=== PATIENT | female | born 1990 | race Caucasian/White ===

== ENCOUNTER 2018-01-22 21:40 | Emergency (ER) | payer OTHER ==
[~2018-01-22] VITALS: Ht 188 cm; Wt 144.7 kg
[2018-01-22] MEDS ORDERED: ONDANSETRON HCL 4 MG ORAL DISINTEGRATING TAB PO ONE (22:00)
[2018-01-22] MEDS ORDERED: KETOROLAC TROMETHAMINE 60 MG/2 ML VIAL IM ONE (22:00)
[2018-01-22 23:53] VITALS: BP 145/75
== END 2018-01-22 23:55 | disposition home or self-care (01) ==
LOC: FSED 21:40
DX: S00.83XA Contusion of other part of head, initial encounter (principal); R42 Dizziness and giddiness; W22.09XA Striking against other stationary object, initial encounter; Y99.0 Civilian activity done for income or pay
CPT/HCPCS: 70450; 81025; 96372; 99283; J1885

== ENCOUNTER 2020-07-24 00:16 | Emergency (ER) | payer BC ==
[~2020-07-24] VITALS: Ht 188 cm; Wt 145.1 kg
--- NOTE | 2020-07-24 00:44 | Emergency Department Note ---
History of Present Illnes History of Present Illness Chief Complaint: Rash and itching History of Present Illness This is a 29 year old female, with no significant past medical h istory, who presents with a 4 day history of intermittent facial swelling, initially involving her eyes and then involved her lips, and generalized pruritus. Pt states that she did eat some shrimp, on the day of symptoms onset. However, she states that she has had seafood many times, including last week, without any symptoms. Pt has sporadically taken benadryl and xyzal. Her symptoms were a bit better yesterday, but she developed severe, intense itching this evening, that has been unrelenting, without any facial swelling or swelling of mucous membranes. She took a Xyzal this evening, without relief of symptoms. She denies any lip, tongue, eyelipd, or throat swelling. She has also not had any chest tightness, SOB, or cough. She has not had a rash, that she has noticed. She denies previous history of similar symptoms, and denies any history of known allergies. Historian: Patient Arrival Mode: [employer] Required: No Onset (how long ago): day(s) (4) Location: generalized Quality: itching Radiation: Reports non-radiation Severity: moderate Onset quality: sudden Duration (how long): day(s) (4) Timing of current episode: constant Progression: worsening Chronicity: new Context: Denies recent illness, Denies trauma/injury, Denies new medications Relieving factors: medication (Benadryl offered temporary relief) Exacerbating factors: none Associated symptoms: Reports denies other symptoms; Denies cough, Denies fever/chills, Denies nausea/vomiting, Denies shortness of breath Treatments prior to arrival: none Risk factors: recent ingestion of shellfish Past Medical/Family History Physician Review I have reviewed the patient's past medical and family history. Any updates have been documented here. Past Medical History Recent Fever: No Clinical Suspicion of Infectio: No New/Unexplained Change in Ment: No Past Medical History: None Past Surgical History: T&A, Bariatric Surgery (Gastric Bypass) Other Surgery: Tummy Tuck Left knee Left foot Social History Smoking Cessation: Never Smoker Alcohol Use: Occasional Any Illegal Drug Use: No TB Exposure/Symptoms: No Physically hurt or threatened: No Family History Family history of heart diseas: No Other Last Tetanus: 2 year ago Any Pre-Existing Lines (PICC,: No Is patient up to date on immun: No Review of Systems Review of Systems Constitutional: Denies chills, Denies fever, Denies weakness EENTM: Reports no symptoms; Denies throat swelling, Denies mouth swelling Cardiovascular: Denies chest pain, Denies palpitations, Denies syncope Respiratory: Denies cough, Denies dyspnea Gastrointestinal: Denies nausea, Denies vomiting Genitourinary: Reports no symptoms Musculoskeletal: Denies joint pain, Denies joint swelling, Denies neck pain Integumentary: Denies change in color, Denies rash Neurological: Denies headache, Denies numbness, Denies tingling Psychological: Denies anxiety Endocrine: Denies no symptoms Review of other systems: All other systems negative Physical Exam Related Data Allergies: Coded Allergies: No Known Allergies (Unverified , 01/22/18) Vital signs reviewed: Yes Physical Exam CONSTITUTIONAL Constitutional: Present well-developed, Present well-nourished, Present obese HENT HENT: Present normocephalic, Present atraumatic, Present oropharynx clear/moist, Present nose normal HENT L/R: Present left ext ear normal, Present right ext ear normal EYES Eyes: Reports PERRL, Reports conjunctivae normal, Reports EOM normal NECK Neck: Present ROM normal, Present supple; Absent cervical adenopathy PULMONARY Pulmonary: Present effort normal, Present breath sounds normal; Absent chest tenderness CARDIOVASCULAR Cardiovascular: Present regular rhythm, Present heart sounds normal, Present capillary refill normal, Present normal rate; Absent murmur GASTROINTESTINAL Abdominal: Present soft, Present nontender, Present bowel sounds normal; Absent distension, Absent tender GENITOURINARY Genitourinary: Present exam deferred SKIN Skin: Present warm, Present dry, Present other (excoriatoins present on arms, n fabrizio and torso;); Absent erythema, Absent rash MUSCULOSKELETAL Musculoskeletal: Present ROM normal NEUROLOGICAL Neurological: Present alert, Present oriented x 3, Present no gross motor or sensory deficits PSYCHOLOGICAL Psychological: Present mood/affect normal, Present judgement normal Results Laboratory Lab results reviewed: Yes Laboratory comments UPT - negative; Assessment & Plan Medical Decision Making MDM - In addition to the prescription medications, recommend that you also take: - Cetirizine/Zyrtec 10 mg daily or Xyzal 5 mg po daily x 10 days, or until you follow-up with an [employer] Apprentice. - Benadryl 25 mg every 4 hours, as needed, for itching. - Avoid hot showers/baths which can make itching worse. - Follow-up with your Primary Care Physician, regarding this ER visit, and for referral to an [employer] App[employer]ice, for formal allergy testing, to try and identify what you might be allergic to. - AVOID SHELLFISH, until you have undergone allergy testing. - Return to the ED, if you develop tongue swelling, lip swelling, chest tightness or difficulty breathing. If you develop ANY of these symptoms, use the EPI-PEN, take 2 Benadryl and call 911. Assessment & Plan Final Impression: (1) Allergic reaction (2) Pruritus Depart Disposition: HOME, SELF-longterm Meds Active Scripts Epinephrine (EPINEPHRINE) 0.3 Mg/0.3 Ml Pen.injctr, 0.3 MG IM ONCE PRN for allergic reaction, #2 PACKET 0 Refills Prov:RUPALI ALEXANDRE MD 07/24/20 Prednisone (PREDNISONE) 20 Mg Tab, 20 MG PO BID for 7 Days, #10 TAB 0 Refills 1 po bid x 3 days, then 1 po daily x 4 days, then stop. Prov:RUPALI ALEXANDRE MD 07/24/20 Famotidine (FAMOTIDINE) 20 Mg Tab, 20 MG PO BID for 10 Days, #20 TAB 0 Refills Prov:RUPALI ALEXANDRE MD 07/24/20 RUPALI ALEXANDRE MD Jul 24, 2020 00:44
[2020-07-24] MEDS ORDERED: FAMOTIDINE 20 MG/2 ML VIAL IV STA (01:26)
[2020-07-24] MEDS ORDERED: METHYLPREDNISOLONE SOD SUCC 125 MG/2ML VIAL IV ONE (01:30)
[2020-07-24] MEDS ORDERED: DIPHENHYDRAMINE HCL INJ 50 MG/ML VIAL IV ONE (01:30)
[2020-07-24] MEDS ORDERED: FAMOTIDINE20 MG PO (01:37)
--- OUTSIDE RECORDS SUMMARY | 2020-07-24 01:38 | XMS REPORT | Continuity of Care Document ---
Author Author VidiowikiCHRISTA [facility] [employer] Address Unknown Phone Unavailable Care Team Providers Care Desk Interviewer Name Role Phone [facility] Information Exchange Unavailable Un available Problems Problem Status Onset Date Classification Date Reported Comments Source LT KNEE Active 12/19/2019 [facility] [place] UNK Active 0 12/10/2019 [facility] KNEE ARTHROSCOPY/MEDIAL MENICUS REPAIR/ Active 12/10/2019 [facility] DX: M25.469=EFFUSION, UNSPECIFIED KNEE / Active 11/14/2019 [facility] M25.469 - EFFUSION, UNSPECIFIED KNEE Active 11/06/2019 [facility] 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 [facility] R10.2 - PELVIC AND PERINEAL PAIN Active [facility]08[facility] [place] Unspecified abdominal pain 03/03/2019 03/05/2019 [facility] Unspecified ovarian cyst, right side 03/03/2019 03/05/2019 [facility] ABD / BACK PAIN Active 03/02/2019 [facility] Z15.09, Z15.01 Active 02/07/2019 [facility] MRI BREAST TOM W-WO CINTRAST A ctive 12/27/2018 [facility] ABD PAIN Active 06/06/2016 [facility] LEG PAIN Active 01/11/2013 [facility] SYNCOPE,ANEMIA Active 11/23/2012 [facility] SYNCOPE Active 11/23/2012 [facility] MIGRAINE Active 01/21/2012 [facility] Gastric bypass Resolved Problem 01/13/2013 1obesity [facility] Anemia (disorder) Resolved Problem 05/01/2020 [facility] Pan, LACY [place] Bypass of stomach (procedure) Resolved Problem [facility] Pan LACY [place] Medications Medication Details Route Status Patient Instructions Ordering Provider Order Date Source Roxicodone Notes: (Same as: Ro xicodone) Inactive 01/23/2020 Skip Tylenol Notes: Do not exceed 4 gm/day. (Same as: Tylenol) Inactive 01/23/2020 [facility] ketOROLAC (ANES) IV, ONCE Inactive 01/23/2020 [facility] metoclopramide (ANES) Route: I V, Drug form: INJ, ONCE, Stop date: 01/23/20 13:23:00 CDT Inactive 01/23/2020 [facility] Acetaminophen Notes: Max aceta minophen 4000 mg/day (4 gm/day). (Same as: Tylenol Extra Strength) Inactive 01/23/2020 [facility] Oxycodone Hydrochloride 5 MG Oral Tablet Notes: (Same as: Roxicodone) Inactive 01/23/2020 [facility] Fentanyl Notes: (Same as: Subl imaze) Preservative free. Inactive 01/23/2020 [facility] Flumazenil Notes: (Same as: Ro mazicon) Inactive 01/23/2020 [facility] Naloxone Notes: Same as Narcan Inactive 01/23/2020 [facility] Ondansetron Notes: (Same as: Nadege melgar) MEDICATION WASTE Product Size: 4 mg Product Wasted: ___ mg Inactive 01/23/2020 [facility] Zofran Notes: (Same as: Zofran ) MEDICATION WASTE Product Size: 4 mg Product Wasted: ___ mg Inactive 01/23/2020 [facility] Acetaminophen 325 MG / Oxycodone Hydroch loride 5 MG Oral Tablet [Percocet 5/325] 2 tab, Route: PO, Drug Form: TAB, Dosing Weight 145.455, kg, Q4H, PRN Pain, Start date: 01/23/20 13:05:00 CDT, Duration: 30 day, Stop date: 02/22/20 13:04:00 CDT Inactive 01/23/2020 [facility] acetaminophen (ANES) Route: IV , Drug form: INJ, ONCE, Stop date: 01/23/20 12:42:00 CDT Inactive 01/23/2020 [facility] ceFAZolin (ANES) Route: IV, Dr ug form: INJ, ONCE, Stop date: 01/23/20 12:37:00 CDT Inactive 01/23/2020 [facility] ondansetron (ANES) Route: IV, Drug form: INJ, ONCE, Stop date: 01/23/20 12:37:00 CDT Inactive 01/23/2020 [facility] dexamethasone (ANES) Route: IV , Drug form: INJ, ONCE, Stop date: 01/23/20 12:37:00 CDT Inactive 01/23/2020 [facility] methylPREDNISolone (ANES) Rout e: IV, Drug form: INJ, ONCE, Stop date: 01/23/20 12:37:00 CDT Inactive 01/23/2020 [facility] lidocaine (ANES) Route: IV, Dr ug form: INJ, ONCE, Stop date: 01/23/20 12:37:00 CDT Inactive 01/23/2020 [facility] fentaNYL (ANES) Route: IV, Julio g form: INJ, ONCE, Stop date: 01/23/20 12:37:00 CDT Inactive 01/23/2020 [facility] propofol (ANES) Route: IV, Julio g form: INJ, ONCE, Stop date: 01/23/20 12:37:00 CDT Inactive 01/23/2020 [facility] rocuronium (ANES) Route: IV, D rug form: INJ, ONCE, Stop date: 01/23/20 12:37:00 CDT Inactive 01/23/2020 [facility] succinylcholine (ANES) Route: IV, Drug form: INJ, ONCE, Stop date: 01/23/20 12:37:00 CDT Inactive 01/23/2020 [facility] midazolam (ANES) Route: IV, Dr ug form: SOLN, ONCE, Stop date: 01/23/20 12:32:00 CDT Inactive 01/23/2020 [facility] Lactated Ringers Injection IV (ANES) 1000 mL Route: IV, Total Volume: 1,000, Start date: 01/23/20 11:32:00 CDT, Stop date: 01/23/20 12:32:00 CDT Inactive 01/23/2020 [facility] Tylenol 1,000 mg, PO, PRN, 0 R efill(s) Inactive 01/23/2020 [facility] Benadryl 25 mg, PO, PRN, 0 Ref ill(s) Active 01/23/2020 [facility] Calcium Chloride 0.0014 MEQ/ML / Potassi um Chloride 0.004 MEQ/ML / Sodium Chloride 0.103 MEQ/ML / Sodium Lactate 0.028 MEQ/ML Injectable Solution 1,000 mL, Rate: 75 ml/hr, Infuse over: 1 3.3 hr, Route: IV, Dosing Weight 145.455 kg, Total Volume: 1,000, Start date: 01/23/20 9:00:00 CDT, Duration: 1 day, Stop date: 01/24/20 8:59:00 CDT, 2.78, m2, 0 Inactive 01/23/2020 [facility] Acetaminophen 325 MG / Hydrocodone Dave trate 7.5 MG Oral Tablet [[place] 7.5/325] Notes: Same as [place] 325-7.5mg Do not exceed 4gm/day of acetaminophen. Inactive 03/03/2019 [facility] Ondansetron 4 MG Disintegrating Tablet [Zofran] 4 mg = 1 tab, PO, Q8H, PRN Nausea and Vomiting, Dissolve tab under tongue, # 15 tab, 0 Refill(s) Active 03/03/2019 [facility] tramadol hydrochloride 50 MG Oral Tablet 50 mg = 1 tab, PO, Q6H, X 5 day, # 20 tab, 0 Refill(s) Active 03/03/2019 [facility] Morphine 4 mg, Route: IVP, ONC E, Dosing Weight 152.273, kg, Priority: STAT, Start date: 03/03/19 0:01:00 CDT, Stop date: 03/03/19 0:01:00 CDT Inactive 03/03/2019 [facility] Ketorolac 30 mg, Route: IVP, D rug form: INJ, ONCE, Dosing Weight 152.273, kg, Priority: STAT, Start date: 03/02/19 21:57:00 CDT, Stop date: 03/02/19 21:57:00 CDT Inactive 03/03/2019 [facility] Zofran 4 mg, Route: IVP, Drug form: INJ, ONCE, Dosing Weight 152.273, kg, Priority: STAT, Start date: 03/02/19 20:26:00 CDT, Stop date: 03/02/19 20:26:00 CDT Inactive 03/03/2019 [facility] Morphine 4 mg, Route: IVP, ONC E, Dosing Weight 152.273, kg, Priority: STAT, Start date: 03/02/19 20:25:00 CDT, Stop date: 03/02/19 20:25:00 CDT Inactive 03/03/2019 [facility] Sodium Chloride 0.9% (Bolus) IV 1,000 mL, Infuse Over: 1 hr, Route: IV, ONCE, Priority: STAT, Dosing Weight 152.273 kg, Start date: 03/02/19 20:25:00 CDT, Stop date: 03/02/19 20:25:00 CDT Inactive 03/03/2019 [facility] Zofran Notes: (Same as: Smithafrbetsy ) MEDICATION WASTE Product Size: 4 mg Product Wasted: ___ mg Inactive 03/03/2019 [facility] Slow Release Iron 160 mg oral tablet, extended release 160 mg = 1 tab, PO, BID, # 30 tab, 0 Refill(s) Active 06/11/2016 [facility] Metronidazole 500 MG Oral Tablet 500 mg = 1 tab, PO, ABXQ8H, X 5 day, # 15 tab, 0 Refill(s) Active 06/11/2016 [facility] Cipro Notes: May interfere w/e nteral feedings - Take 1 hr before or 2 hrs after antacids, dairy pdt & minerals. On empty stomach. Inactive 06/11/2016 [facility] Metronidazole Notes: (Same as: Flagyl) Take with food/ avoid alcohol No Longer Active 06/11/2016 [facility] Venofer Notes: Each 5ml contai ns 100mg elemental iron. Mix with NS (Same as:Venofer) EXPIRES AFTER 7 DAYS AT ROOM TEMP Administer IV only. MEDICATION WASTE Product Size: 100 mg Product Wasted: ___ mg No Longer Active 06/09/2016 [facility] ferrous sulfate Notes: Give wi th food. "Do Not Crush" No Longer Active 06/09/2016 [facility] Carafate Notes: Enteral feeds may interfere with the absorption of this medication. Shake well. Take 1 hr before or 2 hrs after antacids, dairy pdt, minerals & meals. (Same As: Carafate) No Longer Active 06/08/2016 [facility] Protonix Notes: Tablet should not be chewed or crushed. (Same as: Protonix) No Longer Active 06/08/2016 [facility] ciprofloxacin 500 mg oral tablet 500 mg = 1 tab, PO, Q12H, X 3 day, # 6 tab, 0 Refill(s) No Longer Active 06/08/2016 [facility] Sucralfate 1000 MG Oral Tablet [Carafate] 1 gm = 1 tab, PO, QID-Before Meals, # 120 tab, 0 Refill(s) Active 06/08/2016 [facility] pantoprazole 40 MG Enteric Coated Tablet [Protonix] 40 mg = 1 tab, PO, Daily, # 30 tab, 0 Refill(s) Active 06/08/2016 [facility] Slow Release Iron 160 mg oral tablet, extended release 160 mg = 1 tab, PO, BID, # 30 tab, 0 Refill(s) No Longer Active 06/08/2016 [facility] Flagyl Notes: (Same as: James ) Avoid alcohol. No Longer Active 06/08/2016 [facility] 200 ML Ciprofloxacin 2 MG/ML Injection Notes: Do not refrigerate No Longer Active 06/08/2016 [facility] GI cocktail Notes: [place] = antacid with simethicone 22.5 mL - lidocaine viscous 7.5 mL Inactive 06/08/2016 [facility] Flagyl Notes: (Same as: James ) Avoid alcohol. Inactive 06/08/2016 [facility] 200 ML Ciprofloxacin 2 MG/ML Injection Notes: Do not refrigerate Inactive 06/08/2016 [facility] tramadol hydrochloride 50 MG Oral Tablet Notes: Not to exceed 400mg/day. (Same As: Ultram) No Longer Active 06/08/2016 [facility] Acetaminophen Notes: Do not ex ceed 4 gm/day. (Same as: Tylenol) No Longer Active 06/08/2016 [facility] Zofran Notes: (Same as: Zofran ) MEDICATION WASTE Product Size: 4 mg Product Wasted: ___ mg No Longer Active 06/08/2016 [facility] Docusate Sodium 100 MG Oral Capsule Notes: (Same as: Colace) (Do Not Crush) No Longer Active 06/08/2016 [facility] sodium chloride 0.9% INJ 250 mL 250 mL, Rate: Label Cutter for use with blood product administration., Dosing Weight 112.273, kg, Route: IV, Total Volume: 250, Priority: Routine, Start Date: 06/08/16 2:54:00 CDT, Duration: 30 day, Stop date: 07/08/16 2:53:00 CDT, Replace Every: 24 hr No Longer Active 06/08/2016 [facility] sodium chloride 0.9% INJ 250 mL 250 mL, Rate: interior designer for use with blood product administration, Dosing Weight 112.273, kg, Route: IV, Total Volume: 250, Start Date: 06/08/16 1:06:00 CDT, Duration: 30 day, Stop date: 07/08/16 1:05:00 CDT, Replace Every: 24 hr No Longer Active 06/08/2016 [facility] Morphine 4 mg, Route: IVP, ONC E, Dosing Weight 112.273, kg, Priority: STAT, Start date: 06/07/16 23:53:00 CDT, Stop date: 06/07/16 23:53:00 CDT No Longer Active 06/08/2016 [facility] Famotidine 20 mg, Route: IVP, ONCE, Dosing Weight 112.273, kg, Priority: STAT, Start date: 06/07/16 23:53:00 CDT, Stop date: 06/07/16 23:53:00 CDT No Longe r Active 06/08/2016 [facility] Ondansetron 4 mg, Route: IVP, ONCE, Dosing Weight 112.273, kg, Priority: STAT, Start date: 06/07/16 23:53:00 CDT, Stop date: 06/07/16 23:53:00 CDT No Longe r Active 06/08/2016 [facility] Sodium Chloride 0.154 MEQ/ML Injectable Solution 1,000 mL, 2,000 ml/hr, Infuse Over: 30 minutes, Route: IV, ONCE, Priority: STAT, Dosing Weight 112.273 kg, Start date: 06/07/16 23:53:00 CDT, Duration: 1 doses or times, Stop date: 06/07/16 23:53:00 CDT No Longer Active 06/08/2016 [facility] Saline Flush 0.9% Notes: (Same as: BD Posiflush) No Longer Active 06/08/2016 [facility] ibuprofen 600 mg oral tablet 6 00 mg, PO, Q6H, PRN, Take with food, 30 tab, Pain, Substitution AllowedTake with food PO Active [place] 01/11/2013 [facility] [place] 5/325 oral tablet 1 tab, PO, Q6H, PRN, 16 tab, as needed for pain, Substitution Allowed, Maintenance PO Active [place] 01/11/2013 [facility] clindamycin 150 mg oral capsule 300 mg, 2 cap, PO, Q6H, 80 cap, Substitution Allowed PO Active [place] 01/11/2013 [facility] clindamycin + Sodium Chloride 0.9% IV 100 mL 900 mg, 6 mL, Route: IVPB, ONCE, Dosing Weight 113.636, kg, Priority: STAT, Start date: 01/11/13 15:46:00, Stop date: 01/11/13 15:46:00 IVPB No Longer Active [place] 01/11/2013 [facility] Augmentin 875 mg oral tablet 8 75 mg, 1 tab, PO, Q12H, 10 tab, Substitution Allowed, Maintenance, TAB PO Active Abdu lla 11/24/2012 [facility] pantoprazole 40 mg oral enteric coated tablet 40 mg, 1 tab, PO, Daily, Can change it to equivalent PPI which is cheaper for her. Nexium/ Prilosec, 30 tab, Substitution Allowed, ECTABCan change it to equivalent PPI which is cheaper for her. Nexium/ Prilosec PO Active Abdulla 11/24/2012 [facility] pantoprazole 40 mg, 1 tab, Rou te: PO, Drug form: ECTAB, BID, Dosing Weight 113.636, kg, Start date: 11/24/12 9:00:00, Duration: 30 day, Stop date: 12/23/12 17:00:00 PO No Longer Active Abdulla 11/24/2012 [facility] heparin 5,000 unit, 1 mL, Rout e: SUB-Q, Drug form: INJ, Q12H, Dosing Weight 113.636, kg, Start date: 11/23/12 21:00:00, Duration: 30 day, Stop date: 12/23/12 9:00:00 SUB-Q No Longer Active Abdulla 11/24/2012 [facility] Tylenol 650 mg, 2 tab, Route: PO, Drug form: TAB, Q6H, Dosing Weight 113.636, kg, PRN Fever, Start date: 11/23/12 19:51:00, Duration: 30 day, Stop date: 12/23/12 19:50:00 PO No Longer Active Abdulla 11/24/2012 [facility] Ferrlecit + Sodium Chloride 0.9% IV 100 mL 125 mg, 10 mL, Route: IVPB, Drug form: INJ, ONCE, Dosing Weight 113.636, kg, Start date: 11/23/12 18:24:00, Stop date: 11/23/12 18:24:00 IVPB No Longer Active Angelito 11/24/2012 [facility] nitroglycerin 0.4 mg sublingual tablet 0.4 mg, 1 tab, Route: SL, Drug form: TAB, Q5Min, PRN Chest Pain, Start date: 11/23/12 13:00:00, Duration: 30 day, Stop date: 12/23/12 12:59:00 SL No Longer Active [facility] 11/23/2012 [facility] atropine 0.5 mg, 5 mL, Route: IVP, Drug form: INJ, PRN, PRN Bradycardia, Start date: 11/23/12 13:00:00, Duration: 30 day, Stop date: 12/23/12 12:59:00 IVP No Longer Active [facility] 11/23/2012 [facility] potassium chloride 20 mEq, 1 t ab, Route: PO, Drug form: ERTAB, ONCE, Dosing Weight 113.636, kg, Priority: Routine, Start date: 11/23/12 11:45:00, Stop date: 11/23/12 11:45:00 PO No Longer Active [place] 11/23/2012 [facility] Sodium Chloride 0.9% (titrate) 250 mL 250 mL, Rate: interior designer for use with blood product administration, Dosing Weight 113.636, kg, Route: IV, Total Volume: 250, Duration: 1 day, Stop date: 11/24/12 10:53:00, Replace Every: 24 hr IV No Longer Active [place] 11/23/2012 [facility] Saline Flush 0.9% 5 ml, Route: IVP, Drug Form: INJ, Dosing Weight 113.636, kg, PRN, PRN Line Flush, Start date: 11/23/12 9:41:00, Duration: 30 day, Stop date: 12/23/12 9:40:00 IVP No Longer Active [place] 11/23/2012 [facility] Bactrim DS oral tablet 1 tab, PO, BID, 6 tab, Substitution Allowed, Maintenance PO Active Ariel leon 01/21/2012 [facility] Fioricet oral tablet 1 tab, PO , Q4H, PRN, 15 tab, Headache, Substitution Allowed, Maintenance PO Active Ariel leon 01/21/2012 [facility] morphine Sulfate 4 mg, Route: IVP, ONCE, Priority: STAT, Start date: 01/21/12 3:10:00, Stop date: 01/21/12 3:10:00 IVP No Longer Active [facility] 01/21/2012 [facility] Benadryl 25 mg, 0.5 mL, Route: IVP, Drug form: INJ, ONCE, Priority: STAT, Start date: 01/21/12 1:28:00, Stop date: 01/21/12 1:28:00 IVP No Longer Active [facility] 09/2012 [facility] Reglan 20 mg, 4 mL, Route: IV, Drug form: INJ, ONCE, Start date: 01/21/12 1:28:00, Stop date: 01/21/12 1:28:00 IV No Longer Active [facility] 01/21/2012 [facility] Allergies, Adverse Reactions, Alerts Substance Category Reaction Severity Reaction type Status Date Reported Comments Source No Known Medication Allergies Assertion Drug aller gy [facility] [place] Immunizations No Data Provided for This Section Results Order Name Results Value Reference Range Date Interpretation Comments Source URINE CHEM U Preg Negat ann (01/23/20 9:06 AM) Negative 01/23/2020 [facility] MOLECULAR DIAGNOSTIC Source APTIMA Endocervix *NA* (03/02/19 10:37 PM) 03/03/2019 [facility] MOLECULAR DIAGNOSTIC C trachomatis b y Amp Det (APTIMA) Negative *NA* (03/02/19 10:37 PM) Negative 03/03/2019 [facility] MOLECULAR DIAGNOSTIC N gonorrhea by Amp Det (APTIMA) Negative *NA* (03/02/19 10:37 PM) Negative 03/03/2019 [facility] CHEM PANEL Lipase Lvl 104 73 - 393 03/03/2019 [facility] CHEM PANEL A/G Ratio 0.9 0.7 - 1.6 03/03/2019 [facility] CHEM PANEL AGAP 13.2 10.0 - 20.0 03/03/2019 [facility] CHEM PANEL B/C Ratio 15 6 - 25 03/03/2019 [facility] CHEM PANEL Globulin 4.3 2.7 - 4.2 03/03/2019 [facility] CHEM PANEL eGFR 108 03/03/2019 Result Comment: The eGFR is calculated using the CKD-EPI formula. In most young, healthy individuals the eGFR will be >90 mL/min/1.73m2. The eGFR declines with age. An eGFR of 60-89 may be normal in some populations, particularly the elderly, for whom the CKD-EPI formula has not been extensively validated. Use of the eGFR is not recommended in the following populations:

Individuals with unstable creatinine concentrations, including patients and those with serious co-morbid conditions.

Patients with extremes in muscle mass or diet.

The data above are obtained from the National Kidney Disease Education Program (NKDEP) which additionally recommends that when the eGFR is used in patients with extremes of body mass index for purposes of drug dosing, the eGFR should be multiplied by the estimated BMI. [facility] CHEM PANEL BUN 11 7 - 22 03/03/2019 [facility] CHEM PANEL Creatinine Lvl 0.74 0.50 - 1.40 03/03/2019 [facility] CHEM PANEL Glucose Lvl 80 70 - 99 03/03/2019 [facility] CHEM PANEL Sodium Lvl 139 135 - 145 03/03/2019 [facility] CHEM PANEL Potassium Lvl 4.2 3.5 - 5.1 03/03/2019 [facility] CHEM PANEL CO2 25 24 - 32 03/03/2019 [facility] CHEM PANEL Calcium Lvl 8.5 8.5 - 10.5 03/03/2019 [facility] CHEM PANEL Chloride Lvl 105 95 - 109 03/03/2019 [facility] CHEM PANEL Total Protein 8.1 6.4 - 8.4 03/03/2019 [facility] CHEM PANEL Albumin Lvl 3.8 3.5 - 5.0 03/03/2019 [facility] CHEM PANEL Alk Phos 91 39 - 136 03/03/2019 [facility] CHEM PANEL Bili Total 0.9 0.2 - 1.3 03/03/2019 [facility] CHEM PANEL ALT 28 0 - 65 03/03/2019 [facility] CHEM PANEL AST 35 0 - 37 03/03/2019 [facility] ENDOCRINOLOGY S Preg Ne gative *NA* (03/02/19 7:48 PM) Negative 03/03/2019 [facility] HEMATOLOGY Basophils # 0.1 0.0 - 0.2 03/03/2019 [facility] HEMATOLOGY Basophils 0.9 0.0 - 1.0 03/03/2019 [facility] HEMATOLOGY Eosinophils # 0.1 0.0 - 0.5 03/03/2019 [facility] HEMATOLOGY Neutrophils # 9.0 1.5 - 8.1 03/03/2019 [facility] HEMATOLOGY Lymphocytes # 3.6 1.0 - 5.5 03/03/2019 [facility] HEMATOLOGY Lymphocytes 26.2 20.0 - 40.0 03/03/2019 [facility] HEMATOLOGY Monocytes # 0.8 0.0 - 0.8 03/03/2019 [facility] HEMATOLOGY Eosinophils 1.0 0.0 - 4.0 03/03/2019 [facility] HEMATOLOGY Monocytes 6.2 2.0 - 12.0 03/03/2019 [facility] Segs 65.7 45.0 - 75.0 03/03/2019 [facility] Platelet 290 133 - 450 03/03/2019 [facility] RDW 14.9 11.5 - 14.5 03/03/2019 [facility] MPV 7.5 7.4 - 10.4 03/03/2019 [facility] Hgb 12.5 12.0 - 16.0 03/03/2019 [facility] MCV 85.6 80.0 - 98.0 03/03/2019 [facility] Hct 39.2 36.0 - 48.0 03/03/2019 [facility] MCH 27.3 27.0 - 31.0 03/03/2019 [facility] RBC 4.58 4.20 - 5.40 03/03/2019 [facility] MCHC 31.9 32.0 - 36.0 03/03/2019 [facility] WBC 13.7 3.7 - 10.4 03/03/2019 [facility] URINE AND STOOL UA Glucose Negative *NA* (03/02/19 7:48 PM) Negative 03/03/2019 [facility] URINE AND STOOL UA Protein Negative (03/02/19 7:48 PM) Negative 03/03/2019 [facility] URINE AND STOOL UA Turbidity Slight *ABN* (03/02/19 7:48 PM) Clear 03/03/2019 [facility] URINE AND STOOL UA Spec Grav 1.020 <=1.030 03/03/2019 [facility] URINE AND STOOL UA Color Yellow *NA* (03/02/19 7:48 PM) Yellow 03/03/2019 [facility] URINE AND STOOL UA pH 5.0 5.0 - 8.0 03/03/2019 [facility] URINE AND STOOL UA RBC 2 0 - 2 03/03/2019 [facility] URINE AND STOOL UA Leuk Est Trace *ABN* (03/02/19 7:48 PM) Negative 03/03/2019 [facility] URINE AND STOOL UA Sq Epi Many /LPF Few /LPF 03/03/2019 [facility] URINE AND STOOL UA Ketones Trace *ABN* (03/02/19 7:48 PM) Negative 03/03/2019 [facility] URINE AND STOOL UA Nitrite Negative (03/02/19 7:48 PM) Negative 03/03/2019 [facility] URINE AND STOOL UA WBC 3 0 - 5 03/03/2019 [facility] URINE AND STOOL UA Bili Negative *NA* (03/02/19 7:48 PM) Negative 03/03/2019 [facility] URINE AND STOOL UA Blood Negative (03/02/19 7:48 PM) Negative 03/03/2019 [facility] URINE AND STOOL UA Urobilinogen 1.0 0.1 - 1.0 03/03/2019 Result Comment: Urobilinogen performed o n the Clinitek analyzer. [facility] RBC 4.05 4.20 - 5.40 06/11/2016 [facility] Hgb 7.8 12.0 - 16.0 06/11/2016 [facility] Hct 26.8 36.0 - 48.0 06/11/2016 [facility] MCV 66.1 80.0 - 98.0 06/11/2016 [facility] MCH 19.3 27.0 - 31.0 06/11/2016 [facility] MCHC 29.2 32.0 - 36.0 06/11/2016 [facility] RDW 28.0 11.5 - 14.5 06/11/2016 [facility] Platelet 350 133 - 450 06/11/2016 [facility] MPV 8.5 7.4 - 10.4 06/11/2016 [facility] WBC 9.2 3.7 - 10.4 06/11/2016 [facility] Microcyte 3+ *NA* (06/11/16 5:24 AM) None Seen 06/11/2016 [facility] Lymphocytes # 2.4 1.0 - 5.5 06/11/2016 [facility] Basophils 0.9 0.0 - 1.0 06/11/2016 [facility] Segs-Bands # 5.9 1.5 - 8.1 06/11/2016 [facility] HEMATOLOGY Basophils # 0.1 0.0 - 0.2 06/11/2016 [facility] [facility] HEMATOLOGY Eosinophils # 0.2 0.0 - 0.5 06/11/2016 [facility] HEMATOLOGY Monocytes # 0.6 0.0 - 0.8 06/11/2016 [facility] HEMATOLOGY Segs 64.1 45.0 - 75.0 06/11/2016 [facility] HEMATOLOGY Monocytes 6.8 2.0 - 12.0 06/11/2016 [facility] HEMATOLOGY Eosinophils 1.7 0.0 - 4.0 06/11/2016 [facility] HEMATOLOGY Lymphocytes 26.5 20.0 - 40.0 06/11/2016 [facility] ELECTROLYTES Sodium Lvl 141 135 - 145 06/10/2016 [facility] ELECTROLYTES Glucose Lvl 89 70 - 99 06/10/2016 [facility] ELECTROLYTES BUN 3 7 - 22 06/10/2016 [facility] ELECTROLYTES Creatinine Lvl 0.5 2 0.50 - 1.40 06/10/2016 [facility] ELECTROLYTES eGFR 132 06/10/2016 Result Comment: The eGFR is calculated using the CKD-EPI formula. In most young, healthy individuals the eGFR will be >90 mL/min/1.73m2. The eGFR declines with age. An eGFR of 60-89 may be normal in some populations, particularly the elderly, for whom the CKD-EPI formula has not been extensively validated. Use of the eGFR is not recommended in the following populations:

Individuals with unstable creatinine concentrations, including patients and those with serious co-morbid conditions.

Patients with extremes in muscle mass or diet.

The data above are obtained from the National Kidney Disease Education Program (NKDEP) which additionally recommends that when the eGFR is used in patients with extremes of body mass index for purposes of drug dosing, the eGFR should be multiplied by the estimated BMI. [facility] ELECTROLYTES Potassium Lvl 3.9 3.5 - 5.1 06/10/2016 [facility] ELECTROLYTES Chloride Lvl 107 95 - 109 06/10/2016 [facility] ELECTROLYTES CO2 27 24 - 32 06/10/2016 [facility] ELECTROLYTES Calcium Lvl 8.0 8.5 - 10.5 06/10/2016 [facility] ELECTROLYTES AGAP 10.9 10.0 - 20.0 06/10/2016 [facility] HEMATOLOGY Plt Morph Jolynn l (06/10/16 5:55 AM) 06/10/2016 [facility] HEMATOLOGY Basophils # 0.1 0.0 - 0.2 06/10/2016 [facility] Microcyte 3+ *NA* (06/10/16 5:55 AM) None Seen 06/10/2016 [facility] Monocytes # 0.5 0.0 - 0.8 06/10/2016 [facility] HEMATOLOGY Eosinophils # 0.1 0.0 - 0.5 06/10/2016 [facility] Lymphocytes # 2.6 1.0 - 5.5 06/10/2016 [facility] Segs-Bands # 4.9 1.5 - 8.1 06/10/2016 [facility] Hypochrom 2+ (06/10/16 5:55 AM) None Seen 06/10/2016 [facility] Polychrom Moder ate *ABN* (06/10/16 5:55 AM) None Seen 06/10/2016 [facility] Lymphocytes 31.3 20.0 - 40.0 06/10/2016 [facility] Basophils 0.9 0.0 - 1.0 06/10/2016 [facility] Eosinophils 1.5 0.0 - 4.0 06/10/2016 [facility] Monocytes 6.5 2.0 - 12.0 06/10/2016 [facility] Segs 59.8 45.0 - 75.0 06/10/2016 [facility] RBC 3.88 4.20 - 5.40 06/10/2016 [facility] Hgb 7.4 12.0 - 16.0 06/10/2016 [facility] WBC 8.2 3.7 - 10.4 06/10/2016 [facility] Platelet 324 133 - 450 06/10/2016 [facility] MPV 8.6 7.4 - 10.4 06/10/2016 [facility] MCHC 28.9 32.0 - 36.0 06/10/2016 [facility] RDW 27.4 11.5 - 14.5 06/10/2016 [facility] MCV 66.3 80.0 - 98.0 06/10/2016 [facility] Hct 25.8 36.0 - 48.0 06/10/2016 [facility] MCH 19.2 27.0 - 31.0 06/10/2016 [facility] ANEMIA STUDY Iron 19 30 - 160 06/09/2016 [facility] ANEMIA STUDY TIBC 558 228 - 428 06/09/2016 [facility] ANEMIA STUDY UIBC 539 110 - 370 06/09/2016 [facility] ANEMIA STUDY % Satur Fe 3 12 - 57 06/09/2016 [facility] ANEMIA STUDY Folate Lvl 17.5 >=3.0 ng/mL 06/09/2016 [facility] ANEMIA STUDY Vitamin B12 Lvl 749 254 - 1320 06/09/2016 [facility] ANEMIA STUDY Ferritin Lvl 4 5 - 204 06/09/2016 [facility] CHEM PANEL A/G Ratio 0.9 0.7 - 1.6 06/09/2016 [facility] CHEM PANEL Globulin 3.5 2.0 - 4.0 06/09/2016 [facility] CHEM PANEL B/C Ratio 3 6 - 25 06/09/2016 [facility] CHEM PANEL AGAP 10.9 10.0 - 20.0 06/09/2016 [facility] CHEM PANEL eGFR 126 06/09/2016 Result Comment: The eGFR is calculated using the CKD-EPI formula. In most young, healthy individuals the eGFR will be >90 mL/min/1.73m2. The eGFR declines with age. An eGFR of 60-89 may be normal in some populations, particularly the elderly, for whom the CKD-EPI formula has not been extensively validated. Use of the eGFR is not recommended in the following populations:

Individuals with unstable creatinine concentrations, including patients and those with serious co-morbid conditions.

Patients with extremes in muscle mass or diet.

The data above are obtained from the National Kidney Disease Education Program (NKDEP) which additionally recommends that when the eGFR is used in patients with extremes of body mass index for purposes of drug dosing, the eGFR should be multiplied by the estimated BMI. [facility] CHEM PANEL BUN 2 7 - 22 06/09/2016 [facility] CHEM PANEL Albumin Lvl 3.0 3.5 - 5.0 06/09/2016 [facility] CHEM PANEL AST 18 0 - 37 06/09/2016 [facility] CHEM PANEL ALT 17 0 - 65 06/09/2016 [facility] CHEM PANEL Total Protein 6.5 6.4 - 8.4 06/09/2016 [facility] CHEM PANEL Potassium Lvl 3.9 3.5 - 5.1 06/09/2016 [facility] CHEM PANEL Chloride Lvl 108 95 - 109 06/09/2016 [facility] CHEM PANEL CO2 25 24 - 32 06/09/2016 [facility] CHEM PANEL Calcium Lvl 7.9 8.5 - 10.5 06/09/2016 [facility] CHEM PANEL Alk Phos 56 39 - 136 06/09/2016 [facility] CHEM PANEL Bili Total 0.9 0.2 - 1.3 06/09/2016 [facility] CHEM PANEL Glucose Lvl 89 70 - 99 06/09/2016 [facility] CHEM PANEL Creatinine Lvl 0.59 0.50 - 1.40 06/09/2016 [facility] CHEM PANEL Sodium Lvl 140 135 - 145 06/09/2016 [facility] HEMATOLOGY MCHC 29.2 32.0 - 36.0 06/09/2016 [facility] HEMATOLOGY Platelet 331 133 - 450 06/09/2016 [facility] HEMATOLOGY MPV 8.7 7.4 - 10.4 06/09/2016 [facility] HEMATOLOGY RDW 27.4 11.5 - 14.5 06/09/2016 [facility] HEMATOLOGY Hct 26.7 36.0 - 48.0 06/09/2016 [facility] HEMATOLOGY WBC 7.8 3.7 - 10.4 06/09/2016 [facility] HEMATOLOGY RBC 4.04 4.20 - 5.40 06/09/2016 [facility] Hgb 7.8 12.0 - 16.0 06/09/2016 [facility] MCH 19.3 27.0 - 31.0 06/09/2016 [facility] MCV 66.1 80.0 - 98.0 06/09/2016 [facility] HEMATOLOGY Retic Auto 2.6 0.5 - 1.5 06/09/2016 [facility] HEMATOLOGY Lymphocytes # 3.3 1.0 - 5.5 06/09/2016 [facility] HEMATOLOGY Microcyte 3+ *NA* (06/09/16 3:35 AM) None Seen 06/09/2016 [facility] HEMATOLOGY Basophils # 0.1 0.0 - 0.2 06/09/2016 [facility] HEMATOLOGY Eosinophils # 0.1 0.0 - 0.5 06/09/2016 [facility] HEMATOLOGY Monocytes # 0.5 0.0 - 0.8 06/09/2016 [facility] HEMATOLOGY Basophils 0.9 0.0 - 1.0 06/09/2016 [facility] HEMATOLOGY Eosinophils 1.7 0.0 - 4.0 06/09/2016 [facility] HEMATOLOGY Monocytes 6.2 2.0 - 12.0 06/09/2016 [facility] HEMATOLOGY Segs-Bands # 3.8 1.5 - 8.1 06/09/2016 [facility] HEMATOLOGY Lymphocytes 42.8 20.0 - 40.0 06/09/2016 [facility] HEMATOLOGY Segs 48.4 45.0 - 75.0 06/09/2016 [facility] BLOOD BANK RESULTS RBC product Product available (06/09/16 2:54 AM) 06/09/2016 [facility] ANEMIA STUDY Folate Lvl 18.9 >=3.0 ng/mL 06/08/2016 [facility] ANEMIA STUDY Vitamin B12 Lvl 336 254 - 1320 06/08/2016 [facility] ANEMIA STUDY Ferritin Lvl 4 5 - 204 06/08/2016 [facility] ANEMIA STUDY % Satur Fe 3 12 - 57 06/08/2016 [facility] ANEMIA STUDY UIBC 562 110 - 370 06/08/2016 [facility] ANEMIA STUDY TIBC 580 228 - 428 06/08/2016 [facility] ANEMIA STUDY Iron 18 30 - 160 06/08/2016 [facility] CHEM PANEL Phosphorus 3.5 2.5 - 4.5 06/08/2016 [facility] CHEM PANEL Magnesium Lvl 2.1 1.8 - 2.4 06/08/2016 [facility] BLOOD BANK RESULTS ABO/Rh O POS 06/08/2016 [facility] BLOOD BANK RESULTS Antibody Scrn Negative (06/08/16 1:41 AM) 06/08/2016 [facility] URINE AND STOOL Occult Bld Stl Negative (06/08/16 1:41 AM) Negative 06/08/2016 [facility] ANEMIA STUDY Vitamin B12 Lvl 741 254 - 1320 06/08/2016 [facility] ANEMIA STUDY Folate Lvl 16.6 >=3.0 ng/mL 06/08/2016 [facility] ANEMIA STUDY TIBC 643 228 - 428 06/08/2016 [facility] ANEMIA STUDY Iron 18 30 - 160 06/08/2016 [facility] ANEMIA STUDY UIBC 625 110 - 370 06/08/2016 [facility] ANEMIA STUDY % Satur Fe 3 12 - 57 06/08/2016 [facility] ANEMIA STUDY Ferritin Lvl 5 5 - 204 06/08/2016 [facility] CHEM PANEL Lipase Lvl 141 73 - 393 06/08/2016 [facility] CHEM PANEL Globulin 4.3 2.0 - 4.0 06/08/2016 [facility] CHEM PANEL B/C Ratio 11 6 - 25 06/08/2016 [facility] CHEM PANEL A/G Ratio 0.9 0.7 - 1.6 06/08/2016 [facility] CHEM PANEL AGAP 12.4 10.0 - 20.0 06/08/2016 [facility] CHEM PANEL eGFR 122 06/08/2016 Result Comment: The eGFR is calculated using the CKD-EPI formula. In most young, healthy individuals the eGFR will be >90 mL/min/1.73m2. The eGFR declines with age. An eGFR of 60-89 may be normal in some populations, particularly the elderly, for whom the CKD-EPI formula has not been extensively validated. Use of the eGFR is not recommended in the following populations:

Individuals with unstable creatinine concentrations, including patients and those with serious co-morbid conditions.

Patients with extremes in muscle mass or diet.

The data above are obtained from the National Kidney Disease Education Program (NKDEP) which additionally recommends that when the eGFR is used in patients with extremes of body mass index for purposes of drug dosing, the eGFR should be multiplied by the estimated BMI. [facility] CHEM PANEL Total Protein 8.0 6.4 - 8.4 06/08/2016 [facility] CHEM PANEL AST 22 0 - 37 06/08/2016 [facility] CHEM PANEL Alk Phos 75 39 - 136 06/08/2016 [facility] CHEM PANEL ALT 20 0 - 65 06/08/2016 [facility] CHEM PANEL CO2 23 24 - 32 06/08/2016 [facility] CHEM PANEL Albumin Lvl 3.7 3.5 - 5.0 06/08/2016 [facility] CHEM PANEL Calcium Lvl 8.5 8.5 - 10.5 06/08/2016 [facility] CHEM PANEL Chloride Lvl 105 95 - 109 06/08/2016 [facility] CHEM PANEL Bili Total 1.0 0.2 - 1.3 06/08/2016 [facility] CHEM PANEL Potassium Lvl 3.4 3.5 - 5.1 06/08/2016 [facility] CHEM PANEL Creatinine Lvl 0.65 0.50 - 1.40 06/08/2016 [facility] CHEM PANEL Glucose Lvl 92 70 - 99 06/08/2016 [facility] CHEM PANEL Sodium Lvl 137 135 - 145 06/08/2016 [facility] CHEM PANEL BUN 7 7 - 22 06/08/2016 [facility] CHEM PANEL Amylase Lvl 47 25 - 115 06/08/2016 [facility] Anisocyte 1+ *ABN* (06/08/16 12:35 AM) None Seen 06/08/2016 [facility] HEMATOLOGY Hypochrom 3+ (06/08/16 12:35 AM) None Seen 06/08/2016 [facility] Polychrom Moder ate *ABN* (06/08/16 12:35 AM) None Seen 06/08/2016 [facility] Tear Cell Moder ate *ABN* (06/08/16 12:35 AM) None Seen 06/08/2016 [facility] Schistocyte 1-3 p er HPF (06/08/16 12:35 AM) None Seen 06/08/2016 [facility] Plt Morph Jolynn l (06/08/16 12:35 AM) 06/08/2016 [facility] RBC Morph See N ote (06/08/16 12:35 AM) 06/08/2016 [facility] Retic Auto 3.1 0.5 - 1.5 06/08/2016 [facility] URINE AND STOOL UA Urobilinogen <=1.0 mg/dL 0.1 - 1.0 06/08/2016 [facility] URINE AND STOOL UA Mucus Few /LPF None Seen /LPF 06/08/2016 [facility] URINE AND STOOL UA Bili Negative *NA* (06/08/16 12:35 AM) Negative 06/08/2016 [facility] URINE AND STOOL UA pH 5.0 5.0 - 8.0 06/08/2016 [facility] URINE AND STOOL UA Protein Negative mg/dL Negative mg/dL 06/08/[address] [facility] [address] URINE AND STOOL UA Glucose Negative mg/dL Negative mg/dL 06/08/[address] [facility] [address] URINE AND STOOL UA Ketones Negative mg/dL Negative mg/dL 06/08/[address] [facility] [address] URINE AND STOOL UA Blood Negative (06/08/16 12:35 AM) Negative 06/08/2016 [facility] URINE AND STOOL UA Sq Epi Few /LPF Few /LPF 06/08/2016 [facility] URINE AND STOOL UA Nitrite Negative (06/08/16 12:35 AM) Negative 06/08/2016 [facility] URINE AND STOOL UA Leuk Est Large *ABN* (06/08/16 12:35 AM) Negative 06/08/2016 [facility] URINE AND STOOL UA Turbidity Clear (7/28/16 12:35 AM) Clear 06/08/2016 [facility] URINE AND STOOL UA Spec Grav 1.016 <=1.030 06/08/2016 [facility] URINE AND STOOL UA Color Yellow *NA* (06/08/16 12:35 AM) Yellow 06/08/2016 [facility] URINE AND STOOL UA RBC 2 0 - 2 06/08/2016 [facility] URINE AND STOOL UA Bacteria Occasional /HPF None Seen /HPF 06/08/2016 [facility] URINE AND STOOL UA WBC 5 0 - 5 06/08/2016 [facility] URINE CHEM U Preg Negat ann (06/08/16 12:35 AM) Negative 06/08/2016 [facility] CHEMISTRY U Preg Negati ve (01/11/2013 13:27:00) Negati ve 01/11/2013 Normal [facility] CHEMISTRY Globulin 4.0 2.0 - 4.0 01/11/2013 Normal [facility] CHEMISTRY A/G Ratio 0.9 0.7 - 1.6 01/11/2013 Normal [facility] CHEMISTRY B/C Ratio 11 6 - 25 01/11/2013 Normal [facility] CHEMISTRY AGAP 11.0 10.0 - 20.0 01/11/2013 Normal [facility] CHEMISTRY AST 25 0 - 37 01/11/2013 Normal [facility] CHEMISTRY Bili Total 0.8 0.2 - 1.3 01/11/2013 Normal [facility] CHEMISTRY ALT 24 0 - 65 01/11/2013 Normal [facility] CHEMISTRY Alk Phos 97 39 - 136 01/11/2013 Normal [facility] CHEMISTRY Total Protein 7.5 6.4 - 8.4 01/11/2013 Normal [facility] CHEMISTRY Chloride Lvl 105 95 - 109 01/11/2013 Normal [facility] CHEMISTRY CO2 27 24 - 32 01/11/2013 Normal [facility] CHEMISTRY Calcium Lvl 8.1 8.5 - 10.5 01/11/2013 LOW [facility] CHEMISTRY Albumin Lvl 3.5 3.5 - 5.0 01/11/2013 Normal [facility] CHEMISTRY Potassium Lvl 4.0 3.5 - 5.1 01/11/2013 Normal [facility] CHEMISTRY Sodium Lvl 139 135 - 145 01/11/2013 Normal [facility] CHEMISTRY Glucose Lvl 98 70 - 99 01/11/2013 Normal <sup>2</sup>Interpretive Data: Adult ref erence range values reflect the clinical guidelines
of the [place] [employer]. [facility] CHEMISTRY BUN 8 7 - 22 01/11/2013 Normal [facility] CHEMISTRY Creatinine Lvl 0.7 0.5 - 1.4 01/11/2013 Normal [facility] CHEMISTRY eGFR 122 01/11/2013 NA <sup>1</sup>Result Comment: The eGFR is calculated using the CKD-EPI formula. In most young, healthy individuals the eGFR will be >90 mL/min/1.73m2. The eGFR declines with age. An eGFR of 60-89 may be normal in some populations, particularly the elderly, for whom the CKD-EPI formula has not been extensively validated. Use of the eGFR is not recommended in the following populations:& lt;br/>
Individuals with unstable creatinine concentrations, including patients and those with serious co-morbid conditions.

Patients with extremes in muscle mass or diet.

The data above are obtained from the National Kidney Disease Education Program (NKDEP) which additionally recommends that when the eGFR is used in patients with extremes of body mass index for purposes of drug dosing, the eGFR should be multiplied by the estimated BMI. [facility] HEMATOLOGY PTT 25.8 22.9 - 35.8 01/11/2013 Normal <sup>4</sup>Interpretive Data: Heparin T herapeutic Range: 57 - 92 Seconds [facility] HEMATOLOGY PT 12.9 12.0 - 14.7 01/11/2013 Normal [facility] HEMATOLOGY INR 0.95 0.85 - 1.17 01/11/2013 Normal <sup>3</sup>Interpretive Data: RECOMMEND ED RANGES FOR PROTIME INR:
2.0-3.0 for most medical and surgical thromboembolic states.
2.5-3.5 for artificial heart valves and recurrent embolism.

INR SHOULD BE USED ONLY FOR PATIENTS ON STABLE ANTICOAGULANT THERAPY. [facility] HEMATOLOGY Platelet 390 133 - 450 01/11/2013 Normal [facility] HEMATOLOGY RDW 22.0 11.5 - 14.5 01/11/2013 HI [facility] HEMATOLOGY MCHC 29.6 32.0 - 36.0 01/11/2013 LOW [facility] MCH 20.0 27.0 - 31.0 01/11/2013 LOW [facility] MPV 7.0 7.4 - 10.4 01/11/2013 LOW [facility] HEMATOLOGY MCV 67.4 81.0 - 99.0 01/11/2013 LOW [facility] HEMATOLOGY Hct 27.9 36.0 - 48.0 01/11/2013 LOW [facility] HEMATOLOGY Hgb 8.3 12.0 - 16.0 01/11/2013 LOW [facility] HEMATOLOGY RBC 4.15 4.20 - 5.40 01/11/2013 LOW [facility] HEMATOLOGY WBC 10.4 3.7 - 10.4 01/11/2013 Normal [facility] HEMATOLOGY Hypochrom Marke d *ABN* (01/11/2013 13:15:00) None S een 01/11/2013 ABN [facility] HEMATOLOGY Polychrom Sligh t (01/11/2013 13:15:00) None S een 01/11/2013 Normal [facility] HEMATOLOGY Microcyte 1+ *ABN* (01/11/2013 13:15:00) None S een 01/11/2013 ABN [facility] HEMATOLOGY Eosinophils # 0.1 0.0 - 0.5 01/11/2013 Normal [facility] HEMATOLOGY Lymphocytes # 1.4 1.0 - 5.5 01/11/2013 Normal [facility] HEMATOLOGY Monocytes # 0.6 0.0 - 0.8 01/11/2013 Normal [facility] HEMATOLOGY Basophils # 0.0 0.0 - 0.2 01/11/2013 Normal [facility] HEMATOLOGY Anisocyte 1+ *ABN* (01/11/2013 13:15:00) None S een 01/11/2013 ABN [facility] HEMATOLOGY Basophils 0.3 0.0 - 1.0 01/11/2013 Normal [facility] HEMATOLOGY Eosinophils 0.9 0.0 - 4.0 01/11/2013 Normal [facility] HEMATOLOGY Monocytes 5.6 2.0 - 12.0 01/11/2013 Normal [facility] HEMATOLOGY Segs-Bands # 8.2 1.5 - 8.1 01/11/2013 [facility] HEMATOLOGY Plt Morph Jolynn l (01/11/2013 13:15:00) 01/11/2013 Normal [facility] HEMATOLOGY Segs 79.6 45.0 - 75.0 01/11/2013 [facility] HEMATOLOGY Lymphocytes 13.6 20.0 - 40.0 01/11/2013 [facility] CHEMISTRY LDH 198 98 - 192 11/24/2012 [facility] HEMATOLOGY Hct 23.6 36.0 - 48.0 11/24/2012 [facility] HEMATOLOGY Hgb 7.1 12.0 - 16.0 11/24/2012 LOW [facility] BLOOD BANK RESULTS RBC product Product available 3 (11/23/2012 11:16:00) 11/23/2012 Normal <sup>3</sup>Result Comment: 11/23/2012 12:51 ASBHAVSA
called to kriss [facility] BLOOD [facility] RESULTS ABO/Rh O POS 11/23/2012 Unknown [facility] BLOOD [facility] RESULTS Antibody Scrn Negative (11/23/2012 11:16:00) 11/23/2012 Normal [facility] CHEMISTRY Ethanol Lvl 6 11/23/2012 NA <sup>8</sup>Interpretive Data: Negative Range: <3 mg/dL
Toxic Range: >250 mg/dL [facility] CHEMISTRY Etoh (%) 0.006 11/23/2012 NA <sup>7</sup>Interpretive Data: Negative Range: <0.003%
Toxic Range: >0.25% [facility] STOOL TESTS Occult Bld Stl Nega tive (11/23/2012 10:50:00) Negati ve 11/23/2012 Normal [facility] U Amph Scr Negati ve *NA* (11/23/2012 10:48:00) Negati ve 11/23/2012 [facility] U Jacinda Scr Negati ve *NA* (11/23/2012 10:48:00) Negati ve 11/23/2012 [facility] CHEMISTRY U Benzodia Scr Negati ve *NA* (11/23/2012 10:48:00) Negati ve 11/23/2012 [facility] U Cocaine Scr Negati ve *NA* (11/23/2012 10:48:00) Negati ve 11/23/2012 [facility] CHEMISTRY U Cannab Scr Positi ve *ABN* (11/23/2012 10:48:00) Negati ve 11/23/2012 ABN [facility] CHEMISTRY U Opiate Scr Negati ve *NA* (11/23/2012 10:48:00) Negati ve 11/23/2012 [facility] CHEMISTRY U Phencyc Scr Negati ve *NA* (11/23/2012 10:48:00) Negati ve 11/23/2012 [facility] UDS Note See No te 6 (11/23/2012 10:48:00) 11/23/2012 Normal <sup>6</sup>Interpretive Data: Drugs reported as positive have not been confirmed by a second
method and should be used for medical purposes only. To order
confirmation, contact laboratory.

note: Below are cut- off concentrations for all urine drugs of
abuse performed in the laboratory. Some drugs listed in the table
may not be included in this panel.

Description Cut-off concentration

Ampheta mine 1000 ng/mL
Barbiturates 200 ng/mL
Benzodiazepines 300 ng/mL
Cocaine metabolites 300 ng/mL
Opiates 300 ng/mL
Phencyclidine 25 ng/mL
Propoxyphene 300 ng/mL
Marijuana metabolites 50 ng/mL
Methadone 300 ng/m L
Urine alcohol 20 mg/dL [facility] CHEMISTRY U Preg Negati ve (11/23/2012 10:48:00) Negati ve 11/23/2012 Normal [facility] URINALYSIS UA Leuk Est Small *ABN* (11/23/2012 10:48:00) Negati ve 11/23/2012 ABN [facility] URINALYSIS UA Bili Small *ABN* (11/23/2012 10:48:00) Negati ve 11/23/2012 ABN [facility] URINALYSIS UA Blood Negat ann (11/23/2012 10:48:00) Negati ve 11/23/2012 Normal [facility] URINALYSIS UA Nitrite Negat ann (11/23/2012 10:48:00) Negati ve 11/23/2012 Normal [facility] URINALYSIS UA Urobilinogen 2.0 0.1 - 1.0 11/23/2012 [facility] URINALYSIS UA Color Yello w *NA* (11/23/2012 10:48:00) Yellow 11/23/2012 NA [facility] URINALYSIS UA Ketones Trace *ABN* (11/23/2012 10:48:00) Negati ve 11/23/2012 ABN [facility] URINALYSIS UA pH 6.0 5.0 - 8.0 11/23/2012 Normal [facility] URINALYSIS UA Spec Grav 1.020 <=1.030 11/23/2012 Normal [facility] URINALYSIS UA Turbidity Sligh t Cloudy (11/23/2012 10:48:00) Clear 11/23/2012 Normal [facility] URINALYSIS UA Protein Trace *ABN* (11/23/2012 10:48:00) Negati ve 11/23/2012 ABN [facility] URINALYSIS UA Glucose Negat ann (11/23/2012 10:48:00) Negati ve 11/23/2012 Normal [facility] URINALYSIS UA WBC 11 0 - 5 11/23/2012 HI [facility] URINALYSIS UA RBC 3 0 - 2 11/23/2012 HI [facility] URINALYSIS UA Bacteria Occas ional /HPF *NA* (11/23/2012 10:48:00) None S een 11/23/2012 NA [facility] URINALYSIS UA Mucus Many /LPF *ABN* (11/23/2012 10:48:00) None S een 11/23/2012 ABN [facility] URINALYSIS UA Sq Epi Many /LPF *ABN* (11/23/2012 10:48:00) Few 11/23/2012 ABN [facility] VIRAL - SEROLOGY Influ B Negative 2 (11/23/2012 10:35:00) Negati ve 11/23/2012 Normal <sup>2</sup>Interpretive Data: Due to the low sensitivity of this test a negative result does not exclude influenza virus infection. A diagnosis of influenza should be considered based on a patient's clinical presentation and empiric antiviral treatment should be considered, if indicated. If more conclusive testing is desired, follow-up confirmatory testing with either viral culture or PCR is warranted. [facility] VIRAL - SEROLOGY Influ A Negative (11/23/2012 10:35:00) Negati ve 11/23/2012 Normal [facility] BEDSIDE GLUCOSE TESTING Gluc POC Lif scn 111 70 - 99 11/23/2012 HI <sup>1</sup>Interpretive Data: Upper Reportable Limit: 200 mg/dL. [facility] CHEMISTRY CK MB <0.5 0.5 - 3.6 11/23/2012 Normal [facility] CHEMISTRY Troponin-I <0.02 0.00 - 0.40 11/23/2012 Normal [facility] CHEMISTRY Total CK 50 12 - 191 11/23/2012 Normal [facility] CHEMISTRY Chloride Lvl 105 95 - 109 11/23/2012 Normal [facility] CHEMISTRY Potassium Lvl 3.4 3.5 - 5.1 11/23/2012 LOW [facility] CHEMISTRY Sodium Lvl 138 135 - 145 11/23/2012 Normal [facility] CHEMISTRY eGFR 128 11/23/2012 NA <sup>4</sup>Result Comment: The eGFR is calculated using the CKD-EPI formula. In most young, healthy individuals the eGFR will be >90 mL/min/1.73m2. The eGFR declines with age. An eGFR of 60-89 may be normal in some populations, particularly the elderly, for whom the CKD-EPI formula has not been extensively validated. Use of the eGFR is not recommended in the following populations:& lt;br/>
Individuals with unstable creatinine concentrations, including patients and those with serious co-morbid conditions.

Patients with extremes in muscle mass or diet.

The data above are obtained from the National Kidney Disease Education Program (NKDEP) which additionally recommends that when the eGFR is used in patients with extremes of body mass index for purposes of drug dosing, the eGFR should be multiplied by the estimated BMI. [facility] CHEMISTRY Globulin 4.2 2.0 - 4.0 11/23/2012 HI [facility] CHEMISTRY B/C Ratio 12 6 - 25 11/23/2012 Normal [facility] CHEMISTRY AGAP 9.4 10.0 - 20.0 11/23/2012 LOW [facility] CHEMISTRY AST 21 0 - 37 11/23/2012 Normal [facility] CHEMISTRY Bili Total 0.5 0.2 - 1.3 11/23/2012 Normal [facility] CHEMISTRY Alk Phos 75 39 - 136 11/23/2012 Normal [facility] CHEMISTRY ALT 21 0 - 65 11/23/2012 Normal [facility] CHEMISTRY Albumin Lvl 3.5 3.5 - 5.0 11/23/2012 Normal [facility] CHEMISTRY A/G Ratio 0.8 0.7 - 1.6 11/23/2012 Normal [facility] CHEMISTRY Calcium Lvl 8.5 8.5 - 10.5 11/23/2012 Normal [facility] CHEMISTRY Total Protein 7.7 6.4 - 8.4 11/23/2012 Normal [facility] CHEMISTRY CO2 27 24 - 32 11/23/2012 Normal [facility] CHEMISTRY BUN 7 7 - 22 11/23/2012 Normal [facility] CHEMISTRY Creatinine Lvl 0.6 0.5 - 1.4 11/23/2012 Normal [facility] CHEMISTRY Glucose Lvl 83 70 - 99 11/23/2012 Normal <sup>5</sup>Interpretive Data: Adult ref erence range values reflect the clinical guidelines
of the [place] [employer]. [facility] CHEMISTRY CK MB Index <1.0 0.0 - 2.5 11/23/2012 Normal [facility] HEMATOLOGY INR 1.04 0.85 - 1.17 11/23/2012 Normal <sup>10</sup>Interpretive Data: RECOMMEN DED RANGES FOR PROTIME INR:
2.0-3.0 for most medical and surgical thromboembolic states.
2.5-3.5 for artificial heart valves and recurrent embolism.

INR SHOULD BE USED ONLY FOR PATIENTS ON STABLE ANTICOAGULANT THERAPY. [facility] HEMATOLOGY PT 13.8 12.0 - 14.7 11/23/2012 Normal [facility] HEMATOLOGY Platelet 205 133 - 450 11/23/2012 Normal [facility] MPV 7.6 7.4 - 10.4 11/23/2012 Normal [facility] HEMATOLOGY MCV 60.8 81.0 - 99.0 11/23/2012 LOW [facility] HEMATOLOGY MCH 17.1 27.0 - 31.0 11/23/2012 LOW [facility] HEMATOLOGY WBC 7.9 3.7 - 10.4 11/23/2012 Normal [facility] HEMATOLOGY RBC 3.81 4.20 - 5.40 11/23/2012 LOW [facility] HEMATOLOGY Hgb 6.5 12.0 - 16.0 11/23/2012 CRIT <sup>9</sup>Result Comment: Critical Res ult(s) called to Sallie at 11/23/2012 10:37:16 CST_ by_MPB. Read back OK. [facility] HEMATOLOGY MCHC 28.1 32.0 - 36.0 11/23/2012 LOW [facility] HEMATOLOGY RDW 21.4 11.5 - 14.5 11/23/2012 HI [facility] HEMATOLOGY Hct 23.2 36.0 - 48.0 11/23/2012 LOW [facility] HEMATOLOGY Lymphocytes # 1.5 1.0 - 5.5 11/23/2012 Normal [facility] HEMATOLOGY Segs 70.8 45.0 - 75.0 11/23/2012 Normal [facility] HEMATOLOGY Lymphocytes 19.5 20.0 - 40.0 11/23/2012 LOW [facility] HEMATOLOGY Monocytes 8.1 2.0 - 12.0 11/23/2012 Normal [facility] HEMATOLOGY Eosinophils 1.2 0.0 - 4.0 11/23/2012 Normal [facility] HEMATOLOGY Basophils 0.4 0.0 - 1.0 11/23/2012 Normal [facility] HEMATOLOGY Segs-Bands # 5.6 1.5 - 8.1 11/23/2012 Normal [facility] HEMATOLOGY Monocytes # 0.6 0.0 - 0.8 11/23/2012 Normal [facility] HEMATOLOGY Eosinophils # 0.1 0.0 - 0.5 11/23/2012 Normal [facility] HEMATOLOGY Basophils # 0.0 0.0 - 0.2 11/23/2012 Normal [facility] HEMATOLOGY Microcyte 2+ *ABN* (11/23/2012 09:51:00) None S een 11/23/2012 [facility] HEMATOLOGY Anisocyte 1+ *ABN* (11/23/2012 09:51:00) None S een 11/23/2012 [facility] URINALYSIS UA Spec Grav 1.010 <=1.030 01/21/2012 Normal [facility] URINALYSIS UA Turbidity [place] y *ABN* (01/21/2012 01:34:00) Clear 01/21/2012 [facility] URINALYSIS UA Glucose Negat ann (01/21/2012 01:34:00) Negati ve 01/21/2012 Normal [facility] URINALYSIS UA pH 7.5 5.0 - 8.0 01/21/2012 Normal [facility] URINALYSIS UA Protein Negat ann (01/21/2012 01:34:00) Negati ve 01/21/2012 Normal [facility] URINALYSIS UA Ketones Negat ann *NA* (01/21/2012 01:34:00) Negati ve 01/21/2012 NA [facility] URINALYSIS UA RBC 0-2 / HPF (01/21/2012 01:34:00) 0 - 2 01/21/2012 Normal [facility] URINALYSIS UA Urobilinogen 0.2 0.1 - 1.0 01/21/2012 Normal [facility] URINALYSIS UA WBC 6-10 /HPF *ABN* (01/21/2012 01:34:00) None S een 01/21/2012 ABN [facility] URINALYSIS UA Bacteria Moder ate /HPF (01/21/2012 01:34:00) None S een 01/21/2012 Normal [facility] URINALYSIS UA Sq Epi Many /LPF *ABN* (01/21/2012 01:34:00) Few 01/21/2012 ABN [facility] URINALYSIS UA Leuk Est Large *ABN* (01/21/2012 01:34:00) Negati ve 01/21/2012 ABN [facility] URINALYSIS UA Nitrite Negat ann (01/21/2012 01:34:00) Negati ve 01/21/2012 Normal [facility] URINALYSIS UA Blood Negat ann (01/21/2012 01:34:00) Negati ve 01/21/2012 Normal [facility] URINALYSIS UA Bili Negat ann *NA* (01/21/2012 01:34:00) Negati ve 01/21/2012 NA [facility] URINALYSIS UA Color Yello w *NA* (01/21/2012 01:34:00) Yellow 01/21/2012 NA [facility] Microbiology Culture: Urine 01/21/2012 [facility] CHEMISTRY U Preg Negati ve (01/21/2012 01:29:00) Negati ve 01/21/2012 Normal [facility] HEMATOLOGY MPV 6.7 7.4 - 10.4 01/21/2012 [facility] HEMATOLOGY RDW 20.0 11.5 - 14.5 01/21/2012 [facility] HEMATOLOGY Platelet 535 133 - 450 01/21/2012 [facility] HEMATOLOGY MCH 17.4 27.0 - 31.0 01/21/2012 [facility] HEMATOLOGY MCHC 28.5 32.0 - 36.0 01/21/2012 [facility] HEMATOLOGY MCV 61.2 81.0 - 99.0 01/21/2012 [facility] HEMATOLOGY Hgb 7.2 12.0 - 16.0 01/21/2012 [facility] HEMATOLOGY Hct 25.1 36.0 - 48.0 01/21/2012 [facility] HEMATOLOGY WBC 11.8 3.7 - 10.4 01/21/2012 [facility] HEMATOLOGY RBC 4.11 4.20 - 5.40 01/21/2012 LOW [facility] HEMATOLOGY Lymphocytes 19.5 20.0 - 40.0 01/21/2012 LOW [facility] HEMATOLOGY Segs 74.9 45.0 - 75.0 01/21/2012 Normal [facility] HEMATOLOGY Stomatocyte Sligh t *ABN* (01/21/2012 01:29:00) None S een 01/21/2012 ABN [facility] HEMATOLOGY Polychrom Sligh t (01/21/2012 01:29:00) None S een 01/21/2012 Normal [facility] HEMATOLOGY Microcyte 2+ *ABN* (01/21/2012 01:29:00) None S een 01/21/2012 ABN [facility] HEMATOLOGY Anisocyte 1+ *ABN* (01/21/2012 01:29:00) None S een 01/21/2012 ABN [facility] HEMATOLOGY Hypochrom Sligh t (01/21/2012 01:29:00) None S een 01/21/2012 Normal [facility] HEMATOLOGY Basophils # 0.1 0.0 - 0.2 01/21/2012 Normal [facility] HEMATOLOGY Eosinophils # 0.1 0.0 - 0.5 01/21/2012 Normal [facility] HEMATOLOGY Segs-Bands # 8.8 1.5 - 8.1 01/21/2012 HI [facility] HEMATOLOGY Monocytes # 0.5 0.0 - 0.8 01/21/2012 Normal [facility] HEMATOLOGY Lymphocytes # 2.3 1.0 - 5.5 01/21/2012 Normal [facility] Monocytes 4.4 2.0 - 12.0 01/21/2012 Normal [facility] HEMATOLOGY Basophils 0.5 0.0 - 1.0 01/21/2012 Normal [facility] HEMATOLOGY Eosinophils 0.7 0.0 - 4.0 01/21/2012 Normal [facility] HEMATOLOGY Plt Morph Jolynn l (01/21/2012 01:29:00) 01/21/2012 Normal [facility] Pathology Reports No Data Provided for This Section Diagnostic Reports Report Value Date Source Knee wo contrast MRI PROCEDURE INFORMATION: Exam: MR Left Lower Extremity Joint Without Contrast, Knee Exam date and time: 11/24/2019 3:10 PM Age: 29 years old Clinical indication: Effusion, unspecified knee; Pain in left knee; Stiffness of left knee, not elsewhere classified; Additional info: M. 25.469 swelling of knee/m25.662 decreased range of motion of left knee TECHNIQUE: Imaging protocol: MR of the Left lower extremity joint without contrast. Exam focused on the knee. COMPARISON: KNEE 3 VIEWS BILATERAL DX 11/06/2019 2:12 PM FINDINGS: Limitations: Exam partially limited by large body habitus and suboptimal resolution. BONES/JOINTS/CARTILAGE: Patellofemoral compartment: Unremarkable. No focal chondral defect. No significant joint effusion. Trace joint effusion is present. Femorotibial compartments: Unremarkable. No focal chondral defect. Noncompartmental bone findings: Visualized bone marrow signal is within normal limits. No acute fracture. Extensor mechanism: The quadraceps tendon and patella tendon are intact. The medial and lateral patellofemoral ligaments are intact. Medial meniscus: Degeneration in the medial meniscus without definite tear. Lateral meniscus: Intact. No evidence of tear. Medial capsule/supporting structures: There is edema surrounding the medial collateral ligament consistent with grade 1 sprain. Lateral capsule/supporting structures: Unremarkable. No evidence of tear. Anterior cruciate ligament: Intact. No evidence of tear. Posterior cruciate ligament: Intact. No evidence of tear. Soft tissues: Mild subcutaneous edema along the medial knee. Lobulated popliteal cyst is present measuring up to 2.9 x 1.0 x 4.8 cm. IMPRESSION: 1. Partially limited exam. 2. Grade 1 MCL sprain. 3. Medial meniscus degeneration without definite tear. 4. Trace joint effusion. 5. Popliteal cyst. Maximiliano Holliday MD On 11/24/2019 17:29:17; [id number] 11/24/2019 [facility] Knee 3 Views Bilateral DX EXAM : XR BILATERAL KNEE 3 VIEWS DATE: 11/06/2019 14:12 [employer] INDICATION: - swelling COMPARISON: None. TECHNIQUE: Standing AP, sunrise and lateral radiographs of both knees FINDINGS: Right knee: No acute fracture or malalignment is identified. Joint spaces are preserved. No knee joint effusion is present. No soft tissue abnormality is identified. Left knee: No acute fracture or malalignment is identified. Joint spaces are preserved. No knee joint effusion is present. No soft tissue abnormality is identified. IMPRESSION: No acute abnormality. 11/06/2019 [facility] Breast Complete Tom US COMPLETE ULTRASOUND OF BOTH BREASTS AND AXILLA: 10/27/2019 CLINICAL: /Brca+. COMPARISON:Comparison is made to exams dated: 02/13/2019 ultrasound and 02/13/2019 mammogram - [facility]. TECHNIQUE: Color flow and real-time ultrasound of both breasts four quadrants, retroareolar, and axilla regions were performed. Iverson scale images of the real- time examination were reviewed. FINDINGS: No abnormalities were seen sonographically in either breast or either axilla. There has been no significant interval change. IMPRESSION: NEGATIVE RECOMMENDATION:There is no sonographic evidence of malignancy. A follow-up mammogram in 4 months is recommended.(02/26/2020) The results were reviewed with the patient. This exam was interpreted at [id number] for [facility] SUMMARY: The patient will be due for her bilateral screening mammogram in February 2020. Tiny haile/pepito:10/27/2019 15:34:52 Evp Managing Director(s): Katie Carrillo, [facility] letter sent: BI-RADS 1/2 Ultrasound BI-RADS: 1 Negative 10/27/2019 [facility] Pelvis w Transvag and Pelvis Doppler US PROCEDURE INFORMATION: Exam: US Pelvis Complete, Transabdominal and US Pelvis, Transvaginal Exam date and time: 10/27/2019 3:48 PM Age: 28 years old Clinical indication: Other: Bleeding for 3 months, on bioidentical hormones; Additional info: /genetic susceptibility to other malignant neoplasm TECHNIQUE: Imaging protocol: Real-time transabdominal and transvaginal pelvic ultrasound (complete) with image documentation. Tra nsvaginal imaging was used for better evaluation of the endometrium and adnexa. Other technique: Transvaginal and transabdominal pelvic ultrasound was performed. Transvginal images were obtained for more detailed evaluation of the endometrial stripe and ovaries. COMPARISON: PELVIS W TRANSVAG AND PELVIS DOPPLER US 03/02/2019 10:52 PM FINDINGS: Transabdominal images of the pelvis show the anteverted uterus measures 8.3 x 2.8 x 3.9 cm in size. Uterus not well assessed necessitating transvaginal exam. The transvaginal exam shows normal parenchymal echotexture. The endometrial stripe measures 10 mm in thickness. The right ovary measures 2.7 x 2.2 x 1.7 cm and the left ovary measures 3.3 x 1.8 x 2.5 cm. There is normal bilateral ovarian blood flow on doppler evaluation. There is no adnexal mass. There is a soft tissue nodule adjacent to the left adnexa measuring 2.1 cm in size. There is no free fluid in the cul-de-sac. IMPRESSION: 1. Left parovarian soft tissue nodule wh ich may represent normal ovarian tissue. 2. Otherwise unremarkable exam. Briseida Cha MD On 2019 11:45:42; [id number] 10/27/2019 [facility] Abdomen complete US PROCEDURE INFORMATION: Exam: US Abdomen Complete Exam date and time: 10/27/2019 3:30 PM Age: 28 years old Clinical history: Pain; Additional info: /right upper quadrant pain TECHNIQUE: Imaging protocol: Real-time ultrasound of the abdomen with image documentation. COMPARISON: No relevant prior studies available. FINDINGS: Liver: Patchy increased hepatic parenchymal echogenicity. No mass.No intrahepatic duct dilitation. The span of the liver is 18 cm. Gallbladder: Normal. No gallstones. There is no gallbladder wall thickening or pericholecystic fluid. Common bile duct: Caliber is 4 mm. No choledocholith. No ductal dilatation. Pancreas: Visualized pancreas is unremarkable. Right kidney: The right kidney measures 10.5 x 5.4 x 5.4 cm.Normal. No mass. No hydronephrosis.No calculi. Left kidney: The left kidney measures 10.9 x 5.5 x 6.1 cm. Normal. No mass. No hydronephrosis. No calculi. Spleen: Normal. No splenomegaly.The spleen measures 13.5 cm in length. Aorta: Normal. No aneurysm. Inferior vena cava: Unremarkable as visualized. Portal venous: Hepatopedal flow. The caliber of the MPV is 13 mm. IMPRESSION: 1. Mild hepatosplenomegaly. 2. No gallstones. 3. Patchy hepatic steatosis. Martinez Bermudez MD On 2019 10:55:36; [id number] 10/27/2019 [facility] Pelvis w Transvag and Pelvis Doppler US Study: Pelvic ultrasound with transvaginal and Doppler imaging Clinical Indication: - right ovarian cyst; right lower quadrant pain Comparison: CT abdomen pelvis this date FINDINGS: Transabdominal imaging is nondiagnostic due to an empty bladder. Transvaginal imaging demonstrates a normal-size retroverted uterus which measures 7.4 x 3.4 x 4.1 cm. There is normal myometrial echotexture. Normal endometrial echo measures 9 mm. The right ovary measures 4.5 x 3.9 x 4.3 cm and contains a complex 3.5 x 3 x 2.9 cm cyst, likely hemorrhagic cyst. There is normal right adnexal blood flow. Left ovary is not visualized. No cul-de-sac fluid is seen. IMPRESSION: Complex 3.5 cm right ovarian cyst. Nonvisualized left ovary. SL: MARJORIE 03/02/2019 [facility] Abdomen/Pelvis w IV contrast CT Study: CT ABDOMEN AND PELVIS WITH CONTRAST Clinical Indication: - abdominal pain hx of gastric bypass; Comparison: CT abdomen pelvis 05/31/2016 Technique: Axial images with sagittal and coronal reconstructions were obtained following oral and nonionic intravenous contrast, Omnipaque [address] imaging performed at this location utilizes radiation dose optimization techniques which include one or more of the following: -Automated exposure control -Adjustment of the mA and/or kV accordin g to patient size -Use of iterative reconstruction [facility] [email or web address] CT Radiation Dose DLP 1498.72 mGy-cm FINDINGS: The lung bases are clear. The liver, spleen, gallbladder and common duct are normal. The early enhanced kidneys are grossly normal. The adrenals and pancreas are normal. Gastric bypass surgery has been performed. No other intestinal lesion is identified, and there is no mesenteric inflammatory change. There is a complex appearing 4.9 cm right ovarian cyst. The uterus, left ovary and small volume unenhanced urinary bladder are not remarkable. No adenopathy or ascites is seen. IMPRESSION: 1. Complex 4.9 cm right ovarian cyst. 2. Post gastric bypass. SL: MARJORIE 03/02/2019 [facility] Breast Complete Tom US COMPLETE ULTRASOUND OF BOTH BREASTS AND AXILLA: 02/13/2019 CLINICAL: /+Braca Test. COMPARISON:Comparison is made to exam dated: 02/13/2019 mammogram - [facility]. TECHNIQUE: Color flow and real-time ultrasound of both breasts four quadrants, retroareolar, and axilla regions were performed. Iverson scale images of the real- time examination were reviewed. FINDINGS: No abnormalities were seen sonographically in either breast or either axilla. IMPRESSION: NEGATIVE RECOMMENDATION:There is no sonographic evidence of malignancy. A 1 year screening mammogram and an ultrasound is recommended.(02/14/2020) This exam was interpreted at [id number] for [facility] Haritha Luna M.D. ap/penrad:02/13/2019 14:58:44 Evp Managing Director(s): Katie Carrillo [facility] letter sent: BI-RADS 1/2 Ultrasound BI-RADS: 1 Negative 02/13/2019 [facility] Breast Mammo Diag TOM incl CAD MA BILATERAL FIRST EVER DIGITAL DIAGNOSTIC MAMMOGRAM WITH CAD: 02/13/2019 CLINICAL: /Family History. Current study was evaluated with a Computer Aided Detection (CAD) system. COMPARISON:There are no comparison films available as this is the patient's baseline mammogram. TECHNIQUE: Mammographic views were obtained using digital acquisition. CURRENT Version 1.3 was utilized for computer aided detection. FINDINGS: There are scattered fibroglandular densities in both breasts. No significant masses, calcifications, or other findings are seen in either breast. IMPRESSION: BENIGN RECOMMENDATION:There is no mammographic evidence of malignancy. A 1 year screening mammogram is recommended.(02/14/2020) This exam was interpreted at [id number] for [facility] SUMMARY: Ultrasound will be performed at this time; please see dedicated separate report. Haritha Luna M.D. ap/penrad:02/13/2019 14:31:33 Evp Managing Director(s): Page Waters, [facility] Mammogram BI-RADS: 2 Benign 02/13/2019 [facility] Abdomen/Pelvis w IV contrast CT Clinical Indication: Abdominal pain, acute; Comparison: None TECHNIQUE: Helical imaging was performed diaphragm through the symphysis with multiplanar reformations obtained. IV CONTRAST: Yes GI CONTRAST: Yes DLP: 2132 mGy-cm FINDINGS: LOWER CHEST: The lung bases are clear. LIVER: Normal. BILIARY TREE: Normal. GALLBLADDER: Normal. PANCREAS: Normal. SPLEEN: Normal. ADRENALS: Normal. KIDNEYS: Normal. BOWEL: Prior gastric bypass surgery. No bowel obstruction or fistula appreciated. No evidence for colitis or diverticulitis. APPENDIX: Normal. PERITONEUM: No free intraperitoneal fluid or air. RETROPERITONEUM: No adenopathy. The aorta is normal. PELVIS: No pelvic mass. The urinary bladder is normal. MUSCULOSKELETAL: The skeleton is intact. IMPRESSION: No acute finding. SL: KAY 06/08/2016 [facility] Consultation Notes No Data Provided for This Section Discharge Summaries No Data Provided for This Section History and Physicals No Data Provided for This Section Vital Signs Vital Sign Value Date Comments Source Respitory Rate 18 01/23/2020 [facility] Systolic (mm Hg) 127 01/23/2020 [facility] Diastolic (mm Hg) 70 01/23/2020 [facility] Respitory Rate 14 01/23/2020 [facility] Systolic (mm Hg) 123 01/23/2020 [facility] Diastolic (mm Hg) 67 01/23/2020 [facility] Respitory Rate 17 01/23/2020 [facility] Systolic (mm Hg) 134 01/23/2020 [facility] Diastolic (mm Hg) 81 01/23/2020 [facility] Height 187.96 cm 01/20/2020 [facility] Weight 145.455 01/20/2020 [facility] BMI Calculated 41.17 01/20/2020 [facility] Systolic (mm Hg) 157 03/03/2019 [facility] Diastolic (mm Hg) 82 03/03/2019 [facility] Temperature Oral (F) 98.5 F 03/03/2019 [facility] Respitory Rate 18 03/03/2019 [facility] Heart Rate 82 03/03/2019 [facility] Respitory Rate 18 03/03/2019 [facility] Temperature Oral (F) 98.2 F 03/03/2019 [facility] Heart Rate 74 03/03/2019 [facility] Systolic (mm Hg) 136 03/03/2019 [facility] Diastolic (mm Hg) 84 03/03/2019 [facility] Weight 152.273 03/03/2019 [facility] BMI Calculated 43.1 03/03/2019 [facility] Heart Rate 90 03/03/2019 [facility] Respitory Rate 16 03/03/2019 [facility] Systolic (mm Hg) 174 03/03/2019 [facility] Diastolic (mm Hg) 111 03/03/2019 [facility] Height 187.96 cm 03/03/2019 [facility] Temperature Oral (F) 97.8 F 03/03/2019 [facility] Temperature Oral (F) 98.5 F 06/11/2016 [facility] Systolic (mm Hg) 104 06/11/2016 [facility] Diastolic (mm Hg) 65 06/11/2016 [facility] Heart Rate 72 06/11/2016 [facility] Respitory Rate 16 06/11/2016 [facility] Respitory Rate 16 06/11/2016 [facility] Heart Rate 57 06/11/2016 [facility] Systolic (mm Hg) 105 06/11/2016 [facility] Diastolic (mm Hg) 65 06/11/2016 [facility] Temperature Oral (F) 98.3 F 06/11/2016 [facility] Systolic (mm Hg) 109 06/11/2016 [facility] Diastolic (mm Hg) 63 06/11/2016 [facility] Respitory Rate 16 06/11/2016 [facility] Heart Rate 62 06/11/2016 [facility] Temperature Oral (F) 98.3 F 06/11/2016 [facility] Weight 115.568 06/08/2016 [facility] BMI Calculated 32.71 06/08/2016 [facility] Height 187.96 cm 06/08/2016 [facility] BMI Calculated 31.78 06/08/2016 [facility] Weight 112.273 06/08/2016 [facility] Height 187.96 cm 06/08/2016 [facility] Weight 113.636 01/11/2013 [facility] Height 187.96 cm 01/11/2013 [facility] Temperature Oral (F) 99.8 F 11/24/2012 [facility] Heart Rate 86 11/24/2012 [facility] [facility]2012 [facility] Systolic (mm Hg) 116 11/24/2012 [facility] Diastolic (mm Hg) 76 11/24/2012 [facility] Respitory Rate 20 11/24/2012 [facility] Heart Rate 80 11/24/2012 [facility] Diastolic (mm Hg) 68 11/24/2012 [facility] Systolic (mm Hg) 114 11/24/2012 [facility] Temperature Oral (F) 99.3 F 11/24/2012 [facility] Systolic (mm Hg) 102 11/24/2012 [facility] Diastolic (mm Hg) 64 11/24/2012 [facility] Heart Rate 87 11/24/2012 [facility] Respitory Rate 16 11/24/2012 [facility] Temperature Oral (F) 99.8 F 11/24/2012 [facility] Weight 113.636 11/23/2012 [facility] Height 187.96 cm 11/23/2012 [facility] Height 187.96 cm 01/21/2012 [facility] Weight 109.091 01/21/2012 [facility] Encounters Location Location Details Encounter Type Encounter Number Reason For Visit Attending Provider ADM Date DC Date Status Source [facility] Emergency [id number] CITLALLI BROWN 01/21/2012 01/21/2012 Discharged [facility] OU [id number] SYNCOPE,ANEMIA LULY MCDONALD 11/23/2012 11/24/2012 Active [facility] Emergency [id number] CITLALLI BROWN 01/11/2013 01/11/2013 Discharged [facility] Inpatient [id number] Kacy Car 06/08/2016 06/11/2016 [facility] Outpatient [id number] Stephany Hogangent 01/16/2019 01/17/2019 [facility] Outpatient [id number] Orlando Nunez EDMOND 02/13/2019 02/14/2019 [facility] Emergency [id number] Charlie Keyes 03/03/2019 03/03/2019 [facility] Outpatient [id number] Annie Quan 10/27/2019 2019 [facility] [place] [id number] Annie Quan 11/06/2019 11/07/2019 [facility] Outpatient [id number] Ellie Salinas 11/24/2019 11/25/2019 [facility] Day Surgery [id number] Zhou Spain Jr 01/23/2020 01/23/2020 [facility] [place] [facility] [id number] Zhou Spain Jr 01/27/2020 02/26/2020 [facility] [place] [facility] [place] [facility] [id number] Zhou Spain Jr 02/26/2020 03/27/2020 [facility] [place] [facility] [place] [facility] [id number] Zhou Spain Jr 03/31/2020 04/30/2020 [facility] [place] Procedures Procedure Code Date Perfomer Comments Source Gastric bypass operation 64104 [id number] [facility] Tonsillectomy [id number] [facility] Gastric bypass operation [id number] [facility] [place],[facility] Tonsillectomy [id number] [facility] Assessment and Plan Assessment and Plan Date Source Extracted from:Title: Clinical Document Author: Ray Jett MD Date: 06/11/16 Medicine Progress Daily Chief Complaint: anemia Subjective and Interval history: Patient seen and examined. Denies JENSEN dizziness. Denies chest pain or sob. Denies sob, cough wheezing. Denies dysuria, frequency. Denies swelling. Objective: Vital Signs (last 24 hrs) Last Charted Temp Oral 98.5 DegF (JUN 11 11:52) Heart Rate Peripheral 72 bpm (JUN 11:52) Resp Rate 16 BRMIN (JUN 11:) SBP 104 mmHg (JUN 11:) DBP 65 mmHg (JUN 11 11:52) SpO2 100 % (JUN 11 08:00) Medications and labs reviewed as below. PHYSICAL EXAM: GENERAL: AAO NAD HEENT: NCAT, perrl, eomi NECK: Supple, midline trachea LUNGS: CTAB, No rales, rhonchi or wheezes. non labored breathing. CARDIOVASCULAR: S1, S2 normal. No M/G/R. ABDOMEN: Soft, ND, NT. BS + EXTREMITIES: No C/C , or Edema SKIN: No rashes. MUSCULOSKELETAL: Moving all extremities. Neuro: No new motor or sensory deficits IMPRESSION: PLAN and TREATMENT wants to go home with outpatient iron infusion cleared by GI Ok to discharge For details see orders. Plan of care discussed with pt Disposition: Home Input/Output Record In Out Bal 06/11 24hr Tot 420 0 420 06/10 24hr Tot 1713 [id number] Scheduled Meds (6):ciprofloxacin (Cipro), ferrous sulfate, iron sucrose + sodium chloride 0.9% INJ 90 mL (Venofer + sodium chloride 0.9% INJ 90 mL), metroNIDAZOLE, pantoprazole (Protonix), sucralfate (Carafate) Unscheduled Meds: None PRN Meds (5):acetaminophen, docusate (docusate sodium 100 mg oral capsule), ondansetron (Zofran), sodium chloride (Saline Flush 0.9%), tramadol (tramadol 50 mg oral tablet) One Time Meds: None Continuous Infusions (2):sodium chloride 0.9% INJ 250 mL, sodium chloride 0.9% INJ 250 mL Labs (Last four charted values) WBC 9.2 (JUN 11) 8.2 (JUN 10) 7.8 (JUN 09) 8.8 (JUN 08) Hgb L 7.8 (JUN 11) L 7.4 (JUN 10) L 7.8 (JUN 09) L 8.2 (JUN 08) Hct L 26.8 (JUN 11) L 25.8 (JUN 10) L 26.7 (JUN 09) L 27.5 (JUN 08) Plt 350 (JUN 11) 324 (JUN 10) 331 (JUN 09) 345 (JUN 08) Na 141 (JUN 10) 140 (JUN 09) 137 (JUN 08) K 3.9 (JUN 10) 3.9 (JUN 09) L 3.4 (JUN 08) CO2 27 (JUN 10) 25 (JUN 09) L 23 (JUN 08) Cl 107 (JUN 10) 108 (JUN 09) 105 (JUN 08) Cr 0.52 (JUN 10) 0.59 (JUN 09) 0.65 (JUN 08) BUN L 3 (JUN 10) L 2 (JUN 09) 7 (JUN 08) Glucose Random 89 (JUN 10) 89 (JUN 09) 92 (JUN 08) Mg 2.1 (JUN 08) Phos 3.5 (JUN 08) Ca L 8.0 (JUN 10) L 7.9 (JUN 09) 8.5 (JUN 08) 06/11/2016 [facility] Plan of Care No Data Provided for This Section Social History Social History Date Source Social History TypeResponse Alcohol Current, Type Beer, Liquor. Substance Abuse Use: None. Smoking Status Never smoker; Exposure to Tobacco Smoke None; Cigarette Smoking Last 365 Days No; Reg Smoking Cessation Counseling No entered on: 06/08/16 06/08/2016 [facility] Social History TypeResponse Alcohol Current, Type Beer, Liquor. Substance Abuse Use: None. Smoking Status Never smoker; Exposure to Tobacco Smoke None; Cigarette Smoking Last 365 Days No; Reg Smoking Cessation Counseling No entered on: 06/08/16 06/08/2016 [facility] Social History TypeResponse Alcohol Current, Type Beer, Liquor. Substance Abuse Use: None. Smoking Status Never smoker; Exposure to Tobacco Smoke None; Cigarette Smoking Last 365 Days No; Reg Smoking Cessation Counseling No entered on: 01/20/20 06/08/2016 [facility] Social History TypeResponse Alcohol Current, Type Beer, Liquor. Substance Abuse Use: None. Smoking Status Never smoker; Exposure to Tobacco Smoke None; Cigarette Smoking Last 365 Days No; Reg Smoking Cessation Counseling No entered on: 01/20/20 06/08/2016 JOSE Perla Family History No Data Provided for This Section Advance Directives No Data Provided for This Section Functional Status No Data Provided for This Section
--- OUTSIDE RECORDS SUMMARY | 2020-07-24 01:39 | XMS REPORT | Continuity of Care Document ---
Author Author [facility] t Organization [facility] Address [address] [place] [address] Phone Unavailable Care Team Providers Care Irrigation Worker Name Role Phone NONSTAFF PCP Unavailable CURTIS AVILES APRN Attphys Unavailable CO19, PROVIDERBAYSHOREAN Attphys Unavailable Jorge Aguilar Jr Attphys ALIVIA AGUILAR M.D. Attphys Unavailable DRAKE HERNANDEZ M.D. Attphys Unavailable Zhang Boucher M.D. Attphys Unavailable Mary Kay Salinas Attphys Unavailable ELLIE SALINAS APRN Attphys Unavailable Parker Quan Attphys EMMANUELLE QUAN M.D. Attphys Unavailable Flaco Keyes Attphys Jorge Nunez III Attphys Ava Keys Attphys STEPHANY KEYS M.D. Attphys Unavailable CLARISSA CESPEDES M.D. Attphys Unavailable Josep, Hogan Adnan Attphys Josep, Hogan Adnan Admphys Problems Condition Name Condition Details Condition Category Status Onset Date Resolution Date Last Treatment Date Treating Clinician Comments Source LT KNEE LT K NEE Active 12/19/2019 [facility] [place] Diagnosis Active 2019-12-19 08:00:00 2020-03-31 15:05:00 [facility] UNK UNK Active 12/10/2019 [facility] Diagnosis Active 2019-12-10 00:00:00 2020-01-19 15:59:00 [facility] KNEE ARTHROSCOPY/MEDIAL MENICUS REPAIR/ KNEE ARTHROSCOPY/MEDIAL MENICUS REPAIR/ Active 12/10/2019 [facility] Diagnosis Active 2019-12-10 00:00:00 2020-01-23 06:21:00 Partha Baron DX: M25.469=EFFUSION, UNSPECIFIED KNEE / DX: M25.469=EFFUSION, UNSPECIFIED KNEE / Active 11/14/2019 [facility] Diagnosis Active 2019-11-14 00:00:00 2019-11-24 14:38:00 [facility] M25.469 - EFFUSION, UNSPECIFIED KNEE M25.469 - EFFUSION, UNSPECIFIED KNEE Active 11/06/2019 [facility] Diagnosis Active 2019-11-06 00:01:00 2019-11-14 15:33:00 [facility] Tod Z15.01- GENETIC SUSCEPTIBILITY TO MALIGN 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 [facility] Diagnosis Ac tive 2019-10-21 00:00:00 2019-10-27 14:37:00 [facility] R10.2 - PELVIC AND PERINEAL PAIN R10.2 - PELVIC AND PERINEAL PAIN Active 04/08/2019 [facility] [place] Diagnosis Active 2019-04-08 00:01:00 2019-07-28 23:17:00 [facility] ABD / BACK PAIN ABD / BACK PAIN Active 03/02/2019 [facility] Diagnosis Active 2019-03-02 00:00:00 2019-03-02 20:25:00 [facility] Tod Z15.09, Z15.01 Z15. 09, Z15.01 Active 02/07/2019 [facility] Diagnosis Active 2019-02-07 00:00:00 2019-02-13 13:24:00 [facility] MRI BREAST TOM W-WO CINTRAST M RI BREAST TOM W-WO CINTRAST Active 12/27/2018 [facility] Diagnosis Active 2018-12-27 00:0 0:00 2019-02-13 13:23:00 [facility] ABD PAIN ABD PAIN Active 06/06/2016 [facility] Active 2016-06-06 00:00:00 2016-06-08 00:31:00 [facility] LEG PAIN LEG PAIN Active 01/11/2013 [facility] Active 2013-01-11 00:00:00 2013-01-11 14:28:00 [facility] SYNCOPE,ANEMIA SYNC OPE,ANEMIA Active 11/23/2012 [facility] Diagnosis Active 2012-11-23 00:00:00 2012-11-25 09:20:00 Partha Baron SYNCOPE SYNC OPE Active 11/23/2012 [facility] Active 2012-11-23 00:00:00 2012-11-23 10:28:00 Partha Baron MIGRAINE MIGR ARTIS Active 01/21/2012 [facility] Active 2012-01-21 00:00:00 2012-01-21 03:33:00 Partha Baron History of Back pain History of Back pain Problem Resolved [facility] Well female exam with routine gynecological exam Well female exam with routine gynecological exam [facility] Vitamin D deficiency Vitamin D deficiency Problem Active [facility] Vitamin B12 deficiency Vitamin B12 deficiency Problem Active [facility] HPV (human papilloma virus) infection HPV (human papilloma v irus) infection Problem Active [facility] Right upper quadrant abdominal pain Right upper quadrant abdomin al pain Problem Active [facility] Breast screening Breast screening Problem Active [facility] Female pelvic pain Female pelvic pain Problem Active [facility] Swelling of knee Swelling of knee Problem Active [facility] Decreased range of motion of left knee Decreased range of mo tion of left knee Problem Active [facility] Elevated blood pressure reading without diagnosis of h ypertension Elevated blood pressure reading without diagnosis of hypertension Problem Active [facility] Ovarian cyst Ovarian cyst Problem Active [facility] Iron deficiency anemia Iron deficiency anemia Problem Active [facility] Anemia Anemia Problem Active [facility] BRCA gene mutation test positive BRCA gene mutation test positiv e Problem Active [facility] Abnormal uterine bleeding (AUB) Abnormal uterine bleeding (AUB) Pro blem Active [facility] BMI 40.0-44.9, adult BMI 40.0-44.9, adult Problem Active [facility] Acute medial meniscal tear, left, initial encounter [place] medial meniscal tear, left, initial encounter Problem Active [facility] Chondromalacia, left knee Chondromalacia, left knee Problem Active [facility] Acute pain of left knee Acute pain of left knee Problem Active [facility] S/P knee surgery S/P knee surgery Problem Active [facility] Suspected COVID-19 virus infection Suspected COVID-19 virus infe ction Problem Active [facility] Encounter for laboratory testing for COVID-19 virus En counter for laboratory testing for COVID-19 virus Problem Active [facility] Lab test negative for COVID-19 virus Lab test negative for C OVID-19 virus Problem Active [facility] Pilonidal cyst with abscess Pilonidal cyst with abscess Problem Active [facility] Coccyx pain Coccyx pain Problem Active [facility] Gastric bypass Wendi ernie bypass Resolved Problem 01/13/2013 1obesity [facility] Problem Resolved 2013-01-13 11:26: 04 [facility] Anemia (disorder) Anem ia (disorder) Resolved Problem 05/01/[address] [facility], [facility] [place] Problem Resolved 2020-05-01 23:09:11 [facility] Bypass of stomach (procedure) Bypass of stomach (procedure) Resolved Problem 05/01/[address] [facility] [place], [facility] [place] Problem Resolved 2020-05-01 23:09:[address] [facility] Unspecified abdominal pain Uns pecified abdominal pain 03/03/2019 03/05/2019 [facility] Problem 2019-03-03 05:0 0:00 2019-03-05 23:21:28 2019-03-05 23:21:28 [facility] Unspecified ovarian cyst, right side Unspecified ovarian cyst, right side 03/03/2019 03/05/2019 [facility] Problem 2019-03-03 05:00:00 2019-03-05 23:21:28 2019-03-05 23:21:28 M emojelani Baron Allergies, Adverse Reactions, Alerts Allergy Name Allergy Type Status Severity Reaction(s) Onset Date Inacti ve Date Treating Clinician Comments Source No Known Medication Allergies No Known Medication Allergies Active [facility] Family History Family Member Diagnosis Comments Start Date Stop Date Source Mother Family history of lung cancer [facility] Father Family history of diabetes mellitus [facility] Father Family history of Elevated triglycerides with high cholest luis [facility] Father Family history of essential hypertension [facility] Sister Family history of Elevated triglycerides with high cholest luis [facility] Sister Family history of essential hypertension [facility] Sister Family history of malignant neoplasm of ovary [facility] Social History Social Habit Start Date Stop Date Quantity Comments Source Social History 2016-06-08 11:10:39 2016-06-08 11:10:39 Partha Baron Smoking Status Start Date Stop Date Source Never smoked tobacco (finding) [facility] Medications Ordered Medication Name Filled Medication Name Start Date Stop Da te Current Medication? Ordering Clinician Indication Dosage Frequency Signature (SIG) Comments Components Source Clindamycin HCl - 300 MG Oral Capsule Clindamycin HCl - 300 MG Oral Capsule 2020-06-25 00:00:00 Yes CURTIS STEFAN SERVICE ATTENDANT Q6H TAKE 1 CAPSULE EVERY 6 HOURS DAILY. [facility] Sulfamethoxazole-Trimethoprim 800-160 MG Oral Tablet S ulfamethoxazole- Trimethoprim 800-160 MG Oral Tablet 2020-06-25 00:00:00 Yes CURTIS MCCONNELLGAS SERVICE ATTENDANT Q0.5D TAKE 1 TABLET TWICE DAILY. [facility] Ibuprofen 800 MG Oral Tablet Ibuprofen 800 MG Oral Tablet 2020-06-12 4 00:00:00 Yes CURTIS STEFAN SERVICE ATTENDANT Q8H TAKE 1 TABLET EVERY 8 H OURS WITH FOOD NEEDED. [facility] Meloxicam 7.5 MG Oral Tablet Meloxicam 7.5 MG Oral Tablet 2020-02-12 3 00:00:00 Yes ALIVIA AGUILAR M.D. QD TAKE 1 TABLET DAILY WITH FOOD . [facility] Acetaminophen-Codeine 300-30 MG Oral Tablet Acetaminop hen-Codeine 300-30 MG Oral Tablet 2020-02-13 00:00:00 Yes ALIVIA AGUILAR M.D. 1 Q 6H TAKE 1 TABLET EVERY 6 HOURS [facility] Acetaminophen-Codeine 300-30 MG Oral Tablet Acetaminop hen-Codeine 300-30 MG Oral Tablet 2020-01-28 00:00:00 Yes ALIVIA AGUILAR M.D. 1-2 tabs every 4-6 hours prn pain [facility] Roxicodone 2020-01-23 19:42:00 No Notes: (S christian as: Roxicodone) Partha Baron Tylenol 2020-01-23 19:42:00 No Notes: Do not exceed 4 gm/day. (Same as: Tylenol) Partha Baron ketOROLAC (ANES) 2020-01-23 18:23:00 No IV, ONCE Partha Baron metoclopramide (ANES) 2020-01-23 18:23:00 No Route: IV, Drug form: INJ, ONCE, Stop date: 01/23/20 13:23:00 CDT [facility] Acetaminophen 2020-01-23 18:16:00 No Notes: Max acetaminophen 4000 mg/day (4 gm/day). (Same as: Tylenol Extra Strength) [facility] Oxycodone Hydrochloride 5 MG Oral Tablet 2020-01-23 18:16:00 No Notes: (Same as: Roxicodone) [facility] Damian lyn Fentanyl 2020-01-23 18:16:00 No Notes: (Same as: Sublimaze) Preservative free. [facility] Flumazenil 2020-01-23 18:16:00 No Notes: (S christian as: Romazicon) [facility] Naloxone 2020-01-23 18:16:00 No Notes: Same as Narcan [facility] Ondansetron 2020-01-23 18:16:00 No Notes: (Same as: Zofran) MEDICATION WASTE Product Size: 4 mg Product Wasted: ___ mg [facility] Tod Zofran 2020-01-23 18:05:00 No Notes: (Same as: Zofran) MEDICATION WASTE Product Size: 4 mg Product Wasted: ___ mg [facility] Acetaminophen 325 MG / Oxycodone Hydroch loride 5 MG Oral Tablet [Percocet 5/325] 2020-01-23 18:05:00 No 2 tab, Route: PO, Drug Form: TAB, Dosing Weight 145.455, kg, Q4H, PRN Pain, Start date: 01/23/20 13:05:00 CDT, Duration: 30 day, Stop date: 02/22/20 13:04:00 CDT [facility] acetaminophen ([facility]) 2020-01-23 17:42:00 No Route: IV, Drug form: INJ, ONCE, Stop date: 01/23/20 12:42:00 CDT [facility] ceFAZolin (SHAHZADS) 2020-01-23 17:37:00 No Route: IV, Drug form: INJ, ONCE, Stop date: 01/23/20 12:37:00 CDT Jono Baron ondansetron (SHAHZADS) 2020-01-23 17:37:00 No Route: IV, Drug form: INJ, ONCE, Stop date: 01/23/20 12:37:00 CDT [facility] dexamethasone (ANES) 2020-01-23 17:37:00 No Route: IV, Drug form: INJ, ONCE, Stop date: 01/23/20 12:37:[address] [facility] methylPREDNISolone (ANES) 2020-01-23 17:37:00 No Route: IV, Drug form: INJ, ONCE, Stop date: 01/23/20 12:37:[address] [facility] lidocaine (ANES) 2020-01-23 17:37:00 No Route: IV, Drug form: INJ, ONCE, Stop date: 01/23/20 12:37:00 CDT [facility] fentaNYL (ANES) 2020-01-23 17:37:00 No Route: IV, Drug form: INJ, ONCE, Stop date: 01/23/20 12:37:00 CDT [facility] propofol ([facility]) 2020-01-23 17:37:00 No Route: IV, Drug form: INJ, ONCE, Stop date: 01/23/20 12:37:00 CDT [facility] rocuronium (ANES) 2020-01-23 17:37:00 No Route: IV, Drug form: INJ, ONCE, Stop date: 01/23/20 12:37:00 CDT [facility] succinylcholine ([facility]) 2020-01-23 17:37:00 No Route: IV, Drug form: INJ, ONCE, Stop date: 01/23/20 12:37:[address] [facility] midazolam ([facility]) 2020-01-23 17:32:00 No Route: IV, Drug form: SOLN, ONCE, Stop date: 01/23/20 12:32:00 CDT [facility] Lactated Ringers Injection IV ([facility]) 1000 mL 2020-01-23 16:32:00 No Route: IV, Total Volume: 1,000, Start date: 01/23/20 11:32:00 CDT, Stop date: 01/23/20 12:32:[address] [facility] Tylenol 2020-01-23 14:42:00 No 1,000 mg, PO , PRN, 0 Refill(s) [facility] Benadryl 2020-01-23 14:41:00 Yes 25 mg, PO, PRN, 0 Refill(s) Partha Baron Calcium Chloride 0.0014 MEQ/ML / Potassi um Chloride 0.004 MEQ/ML / Sodium Chloride 0.103 MEQ/ML / Sodium Lactate 0.028 MEQ/ML Injectable Solution 2020-01-23 14:00:00 No 1,000 mL, Rate: 75 ml/hr, Infuse over: 13.3 hr, Route: IV, Dosing Weight 145.455 kg, Total Volume: 1,000, Start date: 01/23/20 9:00:00 CDT, Duration: 1 day, Stop date: 01/24/20 8:59:00 CDT, 2.78, m2, 0 Partha Baron Promethazine HCl - 25 MG Oral Tablet Promethazine HCl - 25 M G Oral Tablet 2020-01-22 00:00:00 Yes ALIVIA AGUILAR M.D. ONE TAB EVERY 6 HOURS PRN NAUSEA [facility] Meloxicam 7.5 MG Oral Tablet Meloxicam 7.5 MG Oral Tablet 2019-10-14 00:00:00 Yes ELLIE SALINAS SERVICE ATTENDANT Q0.5D TAKE 1 TABLET TWICE DAILY NEE DED. [facility] Acetaminophen 325 MG / Hydrocodone Dave trate 7.5 MG Oral Tablet [[place] 7.5/325] 2019-03-03 07:04:00 No Notes: Same as [place] 325-7.5mg Do not exceed 4gm/day of acetaminophen. Geovanny Baron Ondansetron 4 MG Disintegrating Tablet [Zofran] 2019-03-03 06:57 :00 Yes 4 mg = 1 tab, PO, Q8H, PRN N ausea and Vomiting, Dissolve tab under tongue, # 15 tab, 0 Refill(s) Partha Baron tramadol hydrochloride 50 MG Oral Tablet 2019-03-03 06:56:00 Yes 50 mg = 1 tab, PO, Q6H, X 5 day, # 20 tab, 0 Refill(s) Partha Baron Morphine 2019-03-03 05:01:00 No 4 mg, Route: IVP, ONCE, Dosing Weight 152.273, kg, Priority: STAT, Start date: 03/03/19 0:01:00 CDT, Stop date: 03/03/19 0:01:00 CDT Partha Baron Ketorolac 2019-03-03 02:57:00 No 30 mg, Route: IVP, Drug form: INJ, ONCE, Dosing Weight 152.273, kg, Priority: STAT, Start date: 03/02/19 21:57:00 CDT, Stop date: 03/02/19 21:57:00 CDT Me jigna Espinozaan 2019-03-03 01:26:00 No 4 mg, Route: IVP, Drug form: INJ, ONCE, Dosing Weight 152.273, kg, Priority: STAT, Start date: 03/02/19 20:26:00 CDT, Stop date: 03/02/19 20:26:00 CDT In jigna Baron Morphine 2019-03-03 01:25:00 No 4 mg, Route: IVP, ONCE, Dosing Weight 152.273, kg, Priority: STAT, Start date: 03/02/19 20:25:00 CDT, Stop date: 03/02/19 20:25:00 CDT [facility] Her huang Sodium Chloride 0.9% (Bolus) IV 2019-03-03 01:25:00 No 1,000 mL, Infuse Over: 1 hr, Route: IV, ONCE, Priority: STAT, Dosing Weight 152.273 kg, Start date: 03/02/19 20:25:00 CDT, Stop date: 03/02/19 20:25:00 CDT [facility] Zofran 2019-03-03 00:39:00 No Notes: (Same as: Kimberly) MEDICATION WASTE Product Size: 4 mg Product Wasted: ___ mg [facility] Slow Release Iron 160 mg oral tablet, extended release 2016-06-11 17:12:29 Yes 160 mg = 1 tab, PO, BID, # 30 tab, 0 Ref ill(s) [facility] Metronidazole 500 MG Oral Tablet 2016-06-11 17:12:00 Yes 500 mg = 1 tab, PO, ABXQ8H, X 5 day, # 15 tab, 0 Refill(s) Partha Baron Cipro 2016-06-11 05:00:00 No Notes: May interfere w/enteral feedings - Take 1 hr before or 2 hrs after antacids, dairy pdt & minerals. On empty stomach. Partha Baron Metronidazole 2016-06-11 03:00:00 No Notes: (Same as: Flagyl) Take with food/ avoid alcohol Partha Becerra n Venofer 2016-06-09 15:00:00 No Notes: Each 5ml contains 100mg elemental iron. Mix with NS (Same as:Venofer) EXPIRES AFTER 7 DAYS AT ROOM TEMP Administer IV only. MEDICATION WASTE Product Size: 100 mg Product Wasted: ___ mg Partha Baron ferrous sulfate 2016-06-09 14:00:00 No Notes: Give with food. "Do Not Crush" Partha Baron Carafate 2016-06-08 22:00:00 No Notes: Enteral feeds may interfere with the absorption of this medication. Shake well. Take 1 hr before or 2 hrs after antacids, dairy pdt, minerals & meals. (Same As: Carafate) Partha Sotoann Protonix 2016-06-08 21:30:00 No Notes: Tablet should not be chewed or crushed. (Same as: Protonix) Partha Baron ciprofloxacin 500 mg oral tablet 2016-06-08 20:05:00 No 500 mg = 1 tab, PO, Q12H, X 3 day, # 6 tab, 0 Refill(s) Partha Cosmos Sucralfate 1000 MG Oral Tablet [Carafate] 2016-06-08 20:05:00 Yes 1 gm = 1 tab, PO, QID-Before Meals, # 120 tab, 0 Refill(s) Partha Tod pantoprazole 40 MG Enteric Coated Tablet [Protonix] 06-08 20:05:00 Yes 40 mg = 1 tab, PO, Daily, # 30 tab, 0 Re fill(s) Partha Tod Slow Release Iron 160 mg oral tablet, extended release 2016-06-08 20:05:00 No 160 mg = 1 tab, PO, BID, # 30 tab, 0 Ref ill(s) Partha Cosmos Flagyl 2016-06-08 20:00:00 No Notes: (Same as: Flagyl) Avoid alcohol. Partha Baron 200 ML Ciprofloxacin 2 MG/ML Injection 2016-06-08 19:00:00 No Notes: Do not refrigerate Partha Baron GI cocktail 2016-06-08 18:25:00 No Notes: G.I. Cocktail = antacid with simethicone 22.5 mL - lidocaine viscous 7.5 mL Partha Baron Flagyl 2016-06-08 16:34:00 No Notes: (Same as: Flagyl) Avoid alcohol. [facility] Tod 200 ML Ciprofloxacin 2 MG/ML Injection 2016-06-08 16:34:00 No Notes: Do not refrigerate [facility] Tod tramadol hydrochloride 50 MG Oral Tablet 2016-06-08 16:34:00 No Notes: Not to exceed 400mg/day. (Same As: Ultram) [facility] Acetaminophen 2016-06-08 16:34:00 No Notes: Do not exceed 4 gm/day. (Same as: Tylenol) [facility] Zofran 2016-06-08 16:34:00 No Notes: (Same as: Zofran) MEDICATION WASTE Product Size: 4 mg Product Wasted: ___ mg [facility] Docusate Sodium 100 MG Oral Capsule 2016-06-08 16:34:00 No Notes: (Same as: Colace) (Do Not Crush) Hongsally diaz Tod sodium chloride 0.9% INJ 250 mL 2016-06-08 07:54:00 No 250 mL, Rate: Senior Windows Systems Engineer for use with blood product administration., Dosing Weight 112.273, kg, Route: IV, Total Volume: 250, Priority: Routine, Start Date: 06/08/16 2:54:00 CDT, Duration: 30 day, Stop date: 07/08/16 2:53:00 CDT, Replace Every: 24 hr [facility] sodium chloride 0.9% INJ 250 mL 2016-06-08 06:06:00 No 250 mL, Rate: director call center sales for use with blood product administration, Dosing Weight 112.273, kg, Route: IV, Total Volume: 250, Start Date: 06/08/16 1:06:00 CDT, Duration: 30 day, Stop date: 07/08/16 1:05:00 CDT, Replace Every: 24 hr [facility] Morphine 2016-06-08 04:53:00 No 4 mg, Route: IVP, ONCE, Dosing Weight 112.273, kg, Priority: STAT, Start date: 06/07/16 23:53:00 CDT, Stop date: 06/07/16 23:53:00 CDT [facility] Her huang Famotidine 2016-06-08 04:53:00 No 20 mg, Route: IVP, ONCE, Dosing Weight 112.273, kg, Priority: STAT, Start date: 06/07/16 23:53:00 CDT, Stop date: 06/07/16 23:53:00 CDT [facility] Her huang Ondansetron 2016-06-08 04:53:00 No 4 mg, Route: IVP, ONCE, Dosing Weight 112.273, kg, Priority: STAT, Start date: 06/07/16 23:53:00 CDT, Stop date: 06/07/16 23:53:00 CDT [facility] Her huang Sodium Chloride 0.154 MEQ/ML Injectable Solution 2016-06-08 04:5 3:00 No 1,000 mL, 2,000 ml/hr, Infus e Over: 30 minutes, Route: IV, ONCE, Priority: STAT, Dosing Weight 112.273 kg, Start date: 06/07/16 23:53:00 CDT, Duration: 1 doses or times, Stop date: 06/07/16 23:53:[address] [facility] Saline Flush 0.9% 2016-06-08 04:53:00 No Notes: (Same as: BD Posiflush) [facility] ibuprofen 600 mg oral tablet 2013-01-11 22:36:17 Yes Venus us Strange 600 mg, PO, Q6H, PRN, Take with food, 30 tab, Pain, Substitution AllowedTake with food [facility] Independence 5/325 oral tablet 2013-01-11 22:35:51 Yes Teto Va ldez 1 tab, PO, Q6H, PRN, 16 tab, as needed for pain, Substitution Allowed, Maintenance [facility] clindamycin 150 mg oral capsule 2013-01-11 22:35:35 Yes Teto Strange 300 mg, 2 cap, PO, Q6H, 80 cap, Substitution Allowed [facility] clindamycin + Sodium Chloride 0.9% IV 100 mL 2013-01-11 21 :46:00 No Teto Strange 900 mg, 6 mL, [place]: IVPB, ONCE, Dosing Weight 113.636, kg, Priority: STAT, Start date: 01/11/13 15:46:00, Stop date: 01/11/13 15:46:00 [facility] Augmentin 875 mg oral tablet 2012-11-24 17:27:37 Yes Nihal Essa Abdulla 875 mg, 1 tab, PO, Q12H, 10 tab, Substitution Allowed, Maintenan ce, TAB [facility] pantoprazole 40 mg oral enteric coated tablet 2012-11-24 1 7:24:43 Yes Nihal Essa Abdulla 40 mg, 1 tab, PO , Daily, Can change it to equivalent PPI which is cheaper for her. Nexium/ Prilosec, 30 tab, Substitution Allowed, ECTABCan change it to equivalent PPI which is cheaper for her. Nexium/ Prilosec [facility] pantoprazole 2012-11-24 15:00:00 No Nihal Essa Abdulla 40 mg, 1 tab, Route: PO, Drug form: ECTAB, BID, Dosing Weight 113.636, kg, Start date: 11/24/12 9:00:00, Duration: 30 day, Stop date: 12/23/12 17:00:00 [facility] heparin 2012-11-24 03:00:00 No Nihal Essa Abdulla 5,000 unit, 1 mL, Route: SUB-Q, Drug form: INJ, Q12H, Dosing Weight 113.636, kg, Start date: 11/23/12 21:00:00, Duration: 30 day, Stop date: 12/23/12 9:00:00 [facility] Tylenol 2012-11-24 01:51:00 No Nihal Essa Abdulla 650 mg, 2 tab, Route: PO, Drug form: TAB, Q6H, Dosing Weight 113.636, kg, PRN Fever, Start date: 11/23/12 19:51:00, Duration: 30 day, Stop date: 12/23/12 19:50:00 [facility] Ferrlecit + Sodium Chloride 0.9% IV 100 mL 2012-11-24 00:2 4:00 No Nihal Essa Abdulla 125 mg, 10 mL, R oute: IVPB, Drug form: INJ, ONCE, Dosing Weight 113.636, kg, Start date: 11/23/12 18:24:00, Stop date: 11/23/12 18:24:00 [facility] nitroglycerin 0.4 mg sublingual tablet 2012-11-23 19:00:00 No Roman Head 0.4 mg, 1 tab, R oute: SL, Drug form: TAB, Q5Min, PRN Chest Pain, Start date: 11/23/12 13:00:00, Duration: 30 day, Stop date: 12/23/12 12:59:00 [facility] atropine 2012-11-23 19:00:00 No Roman Head 0.5 mg, 5 mL, Route: IVP, Drug form: INJ, PRN, PRN Bradycardia, Start date: 11/23/12 13:00:00, Duration: 30 day, Stop date: 12/23/12 12:59:00 [facility] potassium chloride 2012-11-23 17:45:00 No Abelardo Lopez 20 mEq, 1 tab, Route: PO, Drug form: ERTAB, ONCE, Dosing Weight 113.636, kg, Priority: Routine, Start date: 11/23/12 11:45:00, Stop date: 11/23/12 11:45:00 [facility] Sodium Chloride 0.9% (titrate) 250 mL 2012-11-23 16:54:00 No Abelardo Mei 250 mL, Rate: director call center sales for use with blood product administration, Dosing Weight 113.636, kg, Route: IV, Total Volume: 250, Duration: 1 day, Stop date: 11/24/12 10:53:00, Replace Every: [address] [facility] Saline Flush 0.9% 2012-11-23 15:41:00 No Abelardo Cabrera 5 ml, Route: IVP, Drug Form: INJ, Dosing Weight 113.636, kg, PRN, PRN Line Flush, Start date: 11/23/12 9:41:00, Duration: 30 day, Stop date: 12/23/12 9:40:00 [facility] Bactrim DS oral tablet 2012-01-21 08:13:21 Yes John Garcia 1 tab, PO, BID, 6 tab, Substitution Allowed, Maintenance [facility] Fioricet oral tablet 2012-01-21 08:13:04 Yes John Garcia 1 tab, PO, Q4H, PRN, 15 tab, Headache, Substitution Allowed, Maintenance [facility] morphine Sulfate 2012-01-21 08:10:00 No John perry 4 mg, Route: IVP, ONCE, Priority: STAT, Start date: 01/21/12 3:10:00, Stop date: 01/21/12 3:10:00 [facility] Benadryl 2012-01-21 07:28:00 No John Garcia 25 mg, 0.5 mL, Route: IVP, Drug form: INJ, ONCE, Priority: STAT, Start date: 01/21/12 1:28:00, Stop date: 01/21/12 1:28:00 [facility] Her uhang Reglan 2012-01-21 07:28:00 No John Garcia 20 mg, 4 mL, Route: IV, Drug form: INJ, ONCE, Start date: 01/21/12 1:28:00, Stop date: 01/21/12 1:28:00 [facility] Immunizations Ordered Immunization Name Filled Immunization Name Date Status Comments Source Fluzone Quadrivalent 0.5 ML Intramuscular Suspension 2019-10-17 08:48:00 Completed [facility] ns Tdap (Boostrix) 2019-10-17 08:47:00 Completed [facility] Fluzone Quadrivalent 0.5 ML Intramuscular Suspension 2018-08-28 15:21:00 Completed [facility] ns Varicella Disease Unknown Completed [facility] Vital Signs Vital Name Observation Time Observation Value Comments Source Systolic blood pressure 2020-06-25 13:02:00 126 mm[Hg] Loca tion: LUE; Position: Sitting [facility] Diastolic blood pressure 2020-06-25 13:02:00 85 mm[Hg] Loc ation: LUE; Position: Sitting [facility] Body height 2020-06-25 13:02:00 72 [in_us] [facility] Weight 2020-06-25 13:02:00 339.375 [lb_av] [facility] Body mass index (BMI) [Ratio] 2020-06-25 13:02:00 46.03 kg/m2 [facility] Body temperature 2020-06-25 13:02:00 97.6 [degF] Method: Temporal [facility] Heart Rate 2020-06-25 13:02:00 83 /min Location: L Brachial Artery; [facility] Respiratory rate 2020-06-25 13:02:00 16 /min Quality: [facility] Resp[facility] Rate 2020-01-23 19:00:00 [facility] Systolic (mm Hg) 2020-01-23 19:00:00 Kt rial Tod Diastolic (mm Hg) 2020-01-23 19:00:00 [facility] Respitory Rate 2020-01-23 18:45:00 [facility] Systolic (mm Hg) 2020-01-23 18:45:00 Kt rial Tod Diastolic (mm Hg) 2020-01-23 18:45:00 [facility] Respitory Rate 2020-01-23 18:30:00 [facility] Systolic (mm Hg) 2020-01-23 18:30:00 Kt rial Tod Diastolic (mm Hg) 2020-01-23 18:30:00 [facility] Height 2020-01-20 20:19:[address] [facility] Weight 2020-01-20 20:19:00 [facility] BMI Calculated 2020-01-20 20:19:00 [facility] Systolic blood pressure 2019-12-17 11:36:00 128 mm[Hg] Loca tion: LUE; Position: Sitting [facility] Diastolic blood pressure 2019-12-17 11:36:00 88 mm[Hg] Loc ation: LUE; Position: Sitting [facility] Body height 2019-12-17 11:36:00 72 [in_us] [facility] Weight 2019-12-17 11:36:00 324 [lb_av] [facility] Body mass index (BMI) [Ratio] 2019-12-17 11:36:00 43.94 kg/m2 [facility] Body temperature 2019-12-17 11:36:00 98.6 [degF] Method: Oral [facility] Heart Rate 2019-12-17 11:36:00 72 /min Location: L Radial; Q uality: Normal [facility] BP Systolic 2019-12-02 11:13:00 124 mm[Hg] Location: LUE; Positi on: Sitting [facility] BP Diastolic 2019-12-02 11:13:00 81 mm[Hg] Location: LUE; Positi on: Sitting [facility] Height 2019-12-02 11:13:00 72 [in_us] [facility] Weight 2019-12-02 11:13:00 329 [lb_av] [facility] Body Mass Index Calculated 2019-12-02 11:13:00 44.62 kg/m2 [facility] Temperature 2019-12-02 11:13:00 97.8 [degF] Method: Oral [facility] Heart Rate 2019-12-02 11:13:00 73 /min [facility] BP Systolic 2019-11-11 10:10:00 140 mm[Hg] Location: RUE; Positi on: Sitting [facility] BP Diastolic 2019-11-11 10:10:00 90 mm[Hg] Location: RUE; Positi on: Sitting [facility] Heart Rate 2019-11-11 10:10:00 88 /min Location: R Brachial Artery; [facility] BP Systolic 2019-11-11 10:06:00 140 mm[Hg] Location: LUE; Positi on: Sitting [facility] BP Diastolic 2019-11-11 10:06:00 99 mm[Hg] Location: LUE; Positi on: Sitting [facility] Heart Rate 2019-11-11 10:06:00 82 /min Location: L Brachial Artery; [facility] Height 2019-11-11 10:06:00 72 [in_us] [facility] Weight 2019-11-11 10:06:00 319.375 [lb_av] [facility] Body Mass Index Calculated 2019-11-11 10:06:00 43.32 kg/m2 [facility] Temperature 2019-11-11 10:06:00 97.2 [degF] Method: Temporal [facility] Respiration Rate 2019-11-11 10:06:00 16 /min [facility] BP Systolic 2019-11-04 10:37:00 128 mm[Hg] Location: LUE; Positi on: Sitting [facility] BP Diastolic 2019-11-04 10:37:00 83 mm[Hg] Location: LUE; Positi on: Sitting [facility] Height 2019-11-04 10:37:00 72 [in_us] [facility] Weight 2019-11-04 10:37:00 319 [lb_av] [facility] Body Mass Index Calculated 2019-11-04 10:37:00 43.26 kg/m2 [facility] Temperature 2019-11-04 10:37:00 97.7 [degF] Method: Temporal [facility] Respiration Rate 2019-11-04 10:37:00 16 /min [facility] Heart Rate 2019-11-04 10:37:00 98 /min [facility] BP Systolic 2019-10-17 08:40:00 122 mm[Hg] Location: DAVON; Positi on: Sitting [facility] BP Diastolic 2019-10-17 08:40:00 88 mm[Hg] Location: DAVON; Positi on: Sitting [facility] Height 2019-10-17 08:40:00 72 [in_us] [facility] Weight 2019-10-17 08:40:00 323 [lb_av] [facility] Body Mass Index Calculated 2019-10-17 08:40:00 43.81 kg/m2 [facility] Temperature 2019-10-17 08:40:00 97.1 [degF] Method: Temporal [facility] Heart Rate 2019-10-17 08:40:00 74 /min [facility] Respiration Rate 2019-10-17 08:40:00 14 /min [facility] BP Systolic 2019-06-11 10:39:00 123 mm[Hg] Location: DAVON; Positi on: Sitting [facility] BP Diastolic 2019-06-11 10:39:00 89 mm[Hg] Location: DAVON; Positi on: Sitting [facility] Height 2019-06-11 10:39:00 72 [in_us] [facility] Weight 2019-06-11 10:39:00 317.5 [lb_av] [facility] Body Mass Index Calculated 2019-06-11 10:39:00 43.06 kg/m2 [facility] Temperature 2019-06-11 10:39:00 96.8 [degF] Method: Temporal [facility] Heart Rate 2019-06-11 10:39:00 85 /min Location: L Brachial Artery; [facility] Respiration Rate 2019-06-11 10:39:00 16 /min Univ [facility] BP Systolic 2019-03-13 13:14:00 112 mm[Hg] Location: LUE; Positi on: Sitting [facility] BP Diastolic 2019-03-13 13:14:00 68 mm[Hg] Location: LUE; Positi on: Sitting [facility] Height 2019-03-13 13:14:00 72 [in_us] [facility] Weight 2019-03-13 13:14:00 333 [lb_av] [facility] Body Mass Index Calculated 2019-03-13 13:14:00 45.16 kg/m2 [facility] Temperature 2019-03-13 13:14:00 98.2 [degF] Method: Oral [facility] Heart Rate 2019-03-13 13:14:00 75 /min [facility] O2 SAT 2019-03-13 13:14:00 98 % [facility] BP Systolic 2019-03-06 14:29:00 128 mm[Hg] Location: RUE; Positi on: Sitting [facility] BP Diastolic 2019-03-06 14:29:00 80 mm[Hg] Location: RUE; Positi on: Sitting [facility] Height 2019-03-06 14:29:00 72 [in_us] [facility] Weight 2019-03-06 14:29:00 331 [lb_av] [facility] Body Mass Index Calculated 2019-03-06 14:29:00 44.89 kg/m2 [facility] Heart Rate 2019-03-06 14:29:00 81 /min [facility] Systolic (mm Hg) 2019-03-03 07:07:00 Kt jelani Tod Diastolic (mm Hg) 2019-03-03 07:07:00 Mem orial [facility] Temperature Oral (F) 2019-03-03 07:07:00 98.5 F [facility] Respitory Rate 2019-03-03 07:07:00 [facility] Heart Rate 2019-03-03 07:07:00 [facility] Respitory Rate 2019-03-03 02:36:00 [facility] Temperature Oral (F) 2019-03-03 02:36:00 98.2 F [facility] Heart Rate 2019-03-03 02:36:00 [facility] Systolic (mm Hg) 2019-03-03 02:36:00 Ktjan palomares Tod Diastolic (mm Hg) 2019-03-03 02:36:00 [facility] Weight 2019-03-03 00:36:00 [facility] BMI Calculated 2019-03-03 00:36:00 [facility] Heart Rate 2019-03-03 00:36:00 [facility] Respitory Rate 2019-03-03 00:36:00 [facility] Systolic (mm Hg) 2019-03-03 00:36:00 Ktjan ramosl Tod Diastolic (mm Hg) 2019-03-03 00:36:00 Mem jo [facility] Height 2019-03-03 00:36:00 187.96 cm [facility] Temperature Oral (F) 2019-03-03 00:36:00 97.8 F [facility] Systolic 2019-01-09 11:18:00 126 mm[Hg] Location: LUE; Positi on: Sitting [facility] BP Diastolic 2019-01-09 11:18:00 80 mm[Hg] Location: LUE; Positi on: Sitting [facility] Height 2019-01-09 11:18:00 72.09 [in_us] [facility] Weight 2019-01-09 11:18:00 332 [lb_av] [facility] Body Mass Index Calculated 2019-01-09 11:18:00 44.91 kg/m2 [facility] Heart Rate 2019-01-09 11:18:00 68 /min [facility] BP Systolic 2018-12-25 08:57:00 125 mm[Hg] Location: RUE; Positi on: Sitting [facility] BP Diastolic 2018-12-25 08:57:00 80 mm[Hg] Location: RUE; Positi on: Sitting [facility] Height 2018-12-25 08:57:00 183.1 cm [facility] Weight 2018-12-25 08:57:00 329.5 [lb_av] [facility] Body Mass Index Calculated 2018-12-25 08:57:00 44.58 kg/m2 [facility] Temperature 2018-12-25 08:57:00 98.2 [degF] Method: Oral [facility] Heart Rate 2018-12-25 08:57:00 73 /min [facility] Respiration Rate 2018-12-25 08:57:00 17 /min Quality: [facility] BP Systolic 2018-12-18 10:49:00 122 mm[Hg] Location: LUE; Positi on: Sitting [facility] BP Diastolic 2018-12-18 10:49:00 84 mm[Hg] Location: LUE; Positi on: Sitting [facility] Height 2018-12-18 10:49:00 74 [in_us] [facility] Weight 2018-12-18 10:49:00 337.5 [lb_av] [facility] Body Mass Index Calculated 2018-12-18 10:49:00 43.33 kg/m2 [facility] Temperature 2018-12-18 10:49:00 97.6 [degF] Method: Oral [facility] Heart Rate 2018-12-18 10:49:00 83 /min Location: L Radial; [facility] BP Systolic 2018-12-09 14:14:00 135 mm[Hg] Location: LUE; Positi on: Sitting [facility] BP Diastolic 2018-12-09 14:14:00 84 mm[Hg] Location: LUE; Positi on: Sitting [facility] Height 2018-12-09 14:14:00 74 [in_us] [facility] Weight 2018-12-09 14:14:00 335.375 [lb_av] [facility] Body Mass Index Calculated 2018-12-09 14:14:00 43.06 kg/m2 [facility] Temperature 2018-12-09 14:14:00 97.6 [degF] Method: Temporal [facility] Heart Rate 2018-12-09 14:14:00 72 /min Location: L Brachial Artery; [facility] Respiration Rate 2018-12-09 14:14:00 16 /min [facility] BP Systolic 2018-11-21 10:41:00 131 mm[Hg] Location: LUE; Positi on: Sitting [facility] BP Diastolic 2018-11-21 10:41:00 82 mm[Hg] Location: LUE; Positi on: Sitting [facility] Height 2018-11-21 10:41:00 74 [in_us] [facility] Weight 2018-11-21 10:41:00 336 [lb_av] [facility] Body Mass Index Calculated 2018-11-21 10:41:00 43.14 kg/m2 [facility] Temperature 2018-11-21 10:41:00 98.1 [degF] Method: Temporal [facility] Heart Rate 2018-11-21 10:41:00 83 /min Location: L Brachial Artery; [facility] Respiration Rate 2018-11-21 10:41:00 16 /min [facility] BP Systolic 2018-08-28 14:42:00 136 mm[Hg] Location: DAVON; Positi on: Sitting [facility] BP Diastolic 2018-08-28 14:42:00 85 mm[Hg] Location: DAVON; Positi on: Sitting [facility] Weight 2018-08-28 14:42:00 329.125 [lb_av] [facility] Height 2018-08-28 14:42:00 74 [in_us] [facility] Body Mass Index Calculated 2018-08-28 14:42:00 42.26 kg/m2 [facility] Temperature 2018-08-28 14:42:00 97.4 [degF] Method: Temporal [facility] Heart Rate 2018-08-28 14:42:00 71 /min Location: L Brachial Artery; [facility] Respiration Rate 2018-08-28 14:42:00 16 /min [facility] Temperature Oral (F) 2016-06-11 16:52:00 98.5 F [facility] Systolic (mm Hg) 2016-06-11 16:52:00 Kt rial Tod Diastolic (mm Hg) 2016-06-11 16:52:00 Mem orial [facility] Heart Rate 2016-06-11 16:52:00 [facility] Respitory Rate 2016-06-11 16:52:00 Memori al [facility] Respitory Rate 2016-06-11 13:00:00 [facility] Heart Rate 2016-06-11 13:00:00 [facility] Systolic (mm Hg) 2016-06-11 13:00:00 Kt [facility] Diastolic (mm Hg) 2016-06-11 13:00:00 Mem [facility] Temperature Oral (F) 2016-06-11 13:00:00 98.3 F [facility] Systolic (mm Hg) 2016-06-11 09:00:00 Kt [facility] Diastolic (mm Hg) 2016-06-11 09:00:00 [facility] Respitory Rate 2016-06-11 09:00:00 [facility] Heart Rate 2016-06-11 09:00:00 [facility] Temperature Oral (F) 2016-06-11 09:00:00 98.3 F [facility] Weight 2016-06-08 10:59:00 [facility] BMI Calculated 2016-06-08 10:59:00 [facility] Height 2016-06-08 10:59:00 187.96 cm [facility] BMI Calculated 2016-06-08 03:42:00 [facility] Weight 2016-06-08 03:42:00 [facility] Height 2016-06-08 03:42:00 187.96 cm [facility] Weight 2013-01-11 18:35:00 [facility] Height 2013-01-11 18:35:00 187.96 cm [facility] Temperature Oral (F) 2012-11-24 18:00:00 99.8 F [facility] Heart Rate 2012-11-24 18:00:00 [facility] Respitory Rate 2012-11-24 18:00:00 [facility] Systolic (mm Hg) 2012-11-24 18:00:00 Kt rial Tod Diastolic (mm Hg) 2012-11-24 18:00:00 Mem [facility] Respitory Rate 2012-11-24 14:00:00 [facility] Heart Rate 2012-11-24 14:00:00 [facility] Diastolic (mm Hg) 2012-11-24 14:00:00 Mem [facility] Systolic (mm Hg) 2012-11-24 14:00:00 Kt [facility] Temperature Oral (F) 2012-11-24 14:00:00 99.3 F [facility] Systolic (mm Hg) 2012-11-24 10:00:00 Kt rial Tod Diastolic (mm Hg) 2012-11-24 10:00:00 [facility] Heart Rate 2012-11-24 10:00:00 [facility] Respitory Rate 2012-11-24 10:00:00 Hongori al Tod Temperature Oral (F) 2012-11-24 10:00:00 99.8 F [facility] Weight 2012-11-23 15:22:00 [facility] Height 2012-11-23 15:22:00 187.96 cm [facility] Height 2012-01-21 07:17:00 187.96 cm [facility] Weight 2012-01-21 07:17:00 [facility] Procedures Procedure Date / Time Performed Performing Clinician Sourc e Post Op Promis 29 Survey 2020-03-18 00:00:00 [facility] CBC (INCLUDES DIFF/PLT) 2019-12-02 00:00:00 [facility] [Q] IRON, TIBC AND FERRITIN PANEL 2019-12-02 00:00:00 [facility] [Q] FECAL GLOBIN BY IMMUNOCHEMISTRY 2019-11-11 00:00:00 [facility] MR Knee wo contrast [id number] 2019-11-11 00:00:00 [facility] CMP W/EGFR 2019-11-04 00:00:00 [facility] [[facility]] URIC ACID 2019-11-04 00:00:00 [facility] [[facility]] CBC (INCLUDES DIFF/PLT) 2019-11-04 00:00:00 [facility] XRAY Knee 3 Views Bilateral [id number] 2019-11-04 00:00:00 [facility] US Abdomen complete [id number] 2019-10-17 00:00:00 [facility] US Pelvic with Transvaginal and Pelvic Doppler [id number] 2019-10-17 00:00:00 [facility] MA Digital Mammo Screening Tom [id number] 2019-10-17 00:00:00 [facility] [place] [id number] 2019-10-17 00:00:00 [facility]] CULTURE, URINE, ROUTINE 2019-06-11 00:00:00 [facility] US Pelvis with Pelvis Transvaginal [id number] 2019-04-04 00:00:00 [facility] MA Digital Mammo DX Tom [id number] 2019-02-04 00:00:00 [facility] US Breast Bilat [id number] 2019-02-04 00:00:00 [facility] . [facility] - Surgical Biopsy 2018-12-26 00:00:00 [facility] MRI Breast w/wo contrast bilat [id number] 2018-12-25 00:00:00 [facility] [QLH] TSH, 3RD GENERATION W/REFLEX TO FT4 2018-12-09 00:00:00 [facility] [QL] CBC (INCLUDES DIFF/PLT) 2018-12-09 00:00:00 [facility] [QL[facility]] CMP W/EGFR 2018-12-09 00:00:00 [facility] [QL] VITAMIN B12 2018-12-09 00:00:00 [facility] [QL] VITAMIN D, 25-HYDROXY, LC/MS/MS 2018-12-09 00:00:00 [facility] [Q] CHLAMYDIA/N. GONORRHOEAE DNA, SDA 2018-12-09 00:00:00 [facility] [Q] SUREPATH PAP AND HR HPV DNA 2018-12-09 00:00:00 [facility] [QLH] TSH, 3RD GENERATION W/REFLEX TO FT4 2018-08-28 00:00:00 [facility] [QL] CBC (INCLUDES DIFF/PLT) 2018-08-28 00:00:00 [facility] [QLH] CMP W/EGFR 2018-08-28 00:00:00 [facility] [L] Lipid Panel w/ Chol/HDL Ratio 2018-08-28 00:00:00 [facility] [QLH] HEMOGLOBIN A1c 2018-08-28 00:00:00 [facility] [QLH] URINALYSIS, COMPLETE W/REFLEX TO CULTURE 2018-08-28 00:00: 00 [facility] [QLH] CA 125 2018-08-28 00:00:00 [place] [facility] [QLH] IRON AND TOTAL IRON BINDING CAPACITY 2018-08-28 00:00:00 [facility] [QLH] FERRITIN 2018-08-28 00:00:00 [place] [facility] [QLH] VITAMIN B12 2018-08-28 00:00:00 [facility] [QLH] VITAMIN D, 25-HYDROXY, LC/MS/MS 2018-08-28 00:00:00 [facility] 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 [facility] History of Foot surgery [facility]astric [facility] Tonsillectomy [facility] Encounters Start Date/Time End Date/Time Encounter Type Admission Type Attendi [facility] Care Department Encounter ID Source 2020-06-25 13:15:00 2020-06-25 13:15:00 Appointment; CURTIS AVILES APRN DUGAS, NANCY, APRN U[facility] 1 [id number] [facility] 2020-06-23 13:05:00 2020-06-23 13:05:00 Appointment; CO19DENISE CO19, [facility] UTP [id number] [facility] 2020-06-23 08:45:00 2020-06-23 08:45:00 Appointment; CURTIS AVILES APRN DUGAS, NANCY, APRN [facility] UTP [id number] [facility] 2020-06-04 13:40:00 2020-06-04 13:40:00 Appointment; CO19, DENISE NARAYANAN CO19, [facility] UTP [id number] [facility] 2020-06-04 13:30:00 2020-06-04 13:30:00 Appointment; CURTIS AVILES APRN DUGAS, NANCY, APRN [facility] UTP [id number] [facility] 2020-03-31 08:00:00 2020-04-29 23:59:00 Outpatient Alivia Aguilar [id number] 2020-04-29 09:45:00 2020-04-29 09:45:00 Appointment; ALIVIA AGUILAR M.D. CRUMBIE, DAVID, M.D. [facility] UTP [id number] [facility] 2020-04-28 11:30:00 2020-04-28 11:30:00 Appointment; DRAKE HERNANDEZ M.D. CROSS, TAMIKA, M.D. [facility] [id number] [facility] 2020-04-01 09:30:00 2020-04-01 09:30:00 Appointment; ALIVIA AGUILAR M.D. CRUMBIE, DAVID, M.D. [facility] [id number] [facility] 2020-02-26 08:00:00 2020-03-26 23:59:00 Outpatient Alivia Aguilar [id number] 2020-03-04 13:30:00 2020-03-04 13:30:00 Appointment; ALIVIA AGUILAR M.D. CRUMBIE, DAVID, M.D. [facility] [id number] 2020-01-27 10:00:00 2020-02-25 23:59:00 Outpatient Alivia Aguilar [id number] 2020-02-03 09:30:00 2020-02-03 09:30:00 Appointment; ALIVIA AGUILAR M.D. CRUMBIE, DAVID, M.D. [facility] [id number] [facility] 2020-01-26 09:30:00 2020-01-26 09:30:00 Appointment; ALIVIA AGUILAR M.D. CRUMBIE, DAVID, M.D. [facility] [id number] [facility] 2020-01-23 06:13:00 2020-01-23 14:38:00 Outpatient Alivia Aguilar [facility] [id number] 2020-01-23 07:00:00 2020-01-23 07:00:00 Appointment; ALIVIA AGUILAR M.D. CRUMBIE, DAVID, M.D. [facility] [id number] [facility] 2020-01-23 06:13:00 2020-01-23 06:13:00 Outpatient MHBL MHBL [id number] [facility]BL 2019-12-19 08:00:00 2019-12-19 08:00:00 Appointment; ALIVIA AGUILAR M.D. CRUMBIE, DAVID, M.D. [facility] [id number] [facility] 2019-12-17 11:30:00 2019-12-17 11:30:00 Appointment; DRAKE HERNANDEZ M.D. CROSS, TAMIKA, M.D. [facility] [id number] [facility] 2019-12-08 15:00:00 2019-12-08 15:00:00 Appointment; ALIVIA AGUILAR M.D. CRUMBIE, DAVID, M.D. [facility] [id number] 2019-12-02 11:00:00 2019-12-02 11:00:00 Appointment; Zhang Boucher M.D. Quesada, Jorge, M.D. [place] [address] [id number] [facility] [facility] 2019-11-26 11:00:00 2019-11-26 11:00:00 Appointment; DRAKE HERNANDEZ M.D. CROSS, TAMIKA, M.D. [facility] [id number] [facility] 2019-11-25 15:00:00 2019-11-25 15:00:00 Appointment; Zhang Boucher M.D. Quesada, Jorge, M.D. [facility] [id number] [facility] 2019-11-24 14:38:00 2019-11-24 23:59:00 Outpatient Ellie SalinasSE MHSE [id number] 2019-11-11 10:00:00 2019-11-11 10:00:00 Appointment; ELLIE SALINAS A PRN BECK, SHERI, APRN [facility] [id number] [facility] 2019-11-06 14:06:00 2019-11-06 23:59:00 Outpatient Emmanuelle MastersOIB MHOIB [id number] 2019-11-04 11:00:00 2019-11-04 11:00:00 Appointment; DANUTA QUAN M.D. BORTOLOTTI, JULIE, M.D. [facility], [address] [id number] [facility] 2019-10-27 14:37:00 2019-10-27 23:59:00 Outpatient Emmanuelle Masters MHSE MHSE [id number] 2019-10-17 08:30:00 2019-10-17 08:30:00 Appointment; DANUTA QUAN M.D. BORTOLOTTI, JULIE, M.D. [facility] [id number] [facility] 2019-06-11 11:00:00 2019-06-11 11:00:00 Appointment; ELLIE SALINAS A PRN BECK, SHERI, APRN [facility], [address] [id number] [facility] 2019-03-13 13:15:00 2019-03-13 13:15:00 Appointment; DRAKE HERNANDEZ M.D. CROSS, TAMIKA, M.D. [facility] [id number] [facility] 2019-03-06 14:15:00 2019-03-06 14:15:00 Appointment; DRAKE HERNANDEZ M.D. CROSS, TAMIKA, M.D. [facility] [id number] [facility] 2019-03-02 19:30:00 2019-03-03 02:09:00 Outpatient Charlie Keyes MHSE MHSE [id number] 2019-02-13 13:24:00 2019-02-13 23:59:00 Outpatient Ade Nunez MHSE MHSE [id number] 2019-01-16 07:21:00 2019-01-16 23:59:00 Outpatient Stephany Keys MHSE MHSE [id number] 2019-01-09 10:30:00 2019-01-09 10:30:00 Appointment; DRAKE HERNANDEZ M.D. CROSS, TAMIKA, M.D. [facility] [id number] [facility] 2018-12-26 14:30:00 2018-12-26 14:30:00 Appointment; DRAKE HERNANDEZ M.D. CROSS, TAMIKA, M.D. [facility] [id number] [facility] 2018-12-25 08:40:00 2018-12-25 08:40:00 Appointment; ANTIONETTE KEYS M.D. NUGENT, ELIZABETH, M.D. [facility] Gynecologic Oncology at [facility] [id number] [facility] 2018-12-20 07:30:00 2018-12-20 07:30:00 Appointment; ELLIE SALINAS A PRN BECK, SHERI, APRN [facility] [id number] [facility] 2018-12-18 10:30:00 2018-12-18 10:30:00 Appointment; DRAKE HERNANDEZ M.D. CROSS, TAMIKA, M.D. [facility] [id number] [facility] 2018-12-13 07:30:00 2018-12-13 07:30:00 Appointment; ELLIE SALINAS A PRN BECK, SHERI, APRN [facility] [id number] [facility] 2018-12-09 14:30:00 2018-12-09 14:30:00 Appointment; ELLIE SALINAS A PRN BECK, SHERI, APRN [facility] [id number] [facility] 2018-12-06 10:45:00 2018-12-06 10:45:00 Appointment; CLARISSA CESPEDES M .D. BAI, KRISTY, M.D. [facility] [id number] [facility] 2018-11-27 09:30:00 2018-11-27 09:30:00 Appointment; CLARISSA CESPEDES M .D. BAI, KRISTY, M.D. [facility] [id number] [facility] 2018-11-21 10:30:00 2018-11-21 10:30:00 Appointment; ELLIE SALINAS A PRN BECK, SHERI, APRN [facility] [address] [id number] [facility] 2018-09-05 14:00:00 2018-09-05 14:00:00 Appointment; CLARISSA CESPEDES M .D. BAI, KRISTY, M.D. [facility] [id number] [facility] 2018-09-05 07:30:00 2018-09-05 07:30:00 Appointment; ELLIE SALINAS A PRN BECK, SHERI, APRN [facility] [id number] [facility] 2018-08-28 14:30:00 2018-08-28 14:30:00 Appointment; ELLIE SALINAS A PRN BECK, SHERI, APRN [facility] [id number] [facility] 2018-01-22 21:40:00 2018-01-22 23:55:00 Departed Emergency Room [facility] [id number] [facility] 2017-06-02 15:20:00 2017-06-02 15:20:00 Registered Clinic [facility] [id number] [facility] 2016-06-07 22:21:00 2016-06-11 13:28:00 Outpatient Shmuel Car [facility] [id number] Results Test Description Test Time Test Comments Results Result Comments Source . [facility] - COVID-19/SARS-Cov-2 2020-06-23 00:00:00 Test Item SARS-CoV-2 REPORT (test code = SARS-CoV-2 REPORT) Clin icalHistory: U07.1 COVID- 19 virus aznkihgbrH17.59 Encounter for laboratory testing for COVID-19 virus.COVID-19/SARS-CoV-2: COVID-19/SARS-CoV-2: Negative.BodySite: Nasopharyngeal.Special Requests: COVID-19/SARS-Cov-2.CPTCode: 00175.ICDCode: U07.1,Z11.59. N [facility]. [facility] - COVID-19/[id number] 00:00:00 * Test Item Value Reference Range Interpretation Comments SARS-CoV-2 REPORT (test code = SARS-CoV-2 REPORT) Clin icalHistory: Z20.828 Suspected COVID-19 virus infection.COVID-19/SARS-CoV-2: COVID-19/SARS-CoV-2: Positive.BodySite: Nasopharyngeal.Special Requests: COVID-19/SARS-Cov-2.CPTCode: 05348.ICDCode: Z20.828. A [facility]iciansURINE [id number] 14:06:00Negative (01/23/20 9:06 AM)[facility][] IRON, TIBC AND FERRITIN [id number] 12:15:00* Test Item Value Reference Range Interpretation Comments IRON, TOTAL (test code = IRON, TOTAL) 34 {mcg/dl} 40-190 IRON BINDING CAPACITY (test code = IRON BINDING CAPACITY) 48 8 {mcg/dL ca} 250-450 % SATURATION (test code = % SATURATION) 7 {% CALC} 16-45 FERRITIN (test code = FERRITIN) 6 ng/ml 16-154 [facility]] CBC (INCLUDES DIFF/PLT)2019-12-02 12:15:00* Test Item Value Reference Range Interpretation Comments WHITE BLOOD CELL COUNT (test code = WHITE BLOOD CELL COUNT) 6.7 {Thousand/u} 3.8-10.8 N RED BLOOD CELL COUNT (test code = RED BLOOD CELL COUNT) 4.12 {Million/uL} 3.80-5.10 N HEMAGLOBIN; Below Low Threshold (test code = 45798-5) 10.1 g/dl 11.7-15.5 HEMATOCRIT; Below Low Threshold (test code = 4544-3) 32.9 % 3 5.0-45.0 MCV; Below Low Threshold (test code = 787-2) 79.9 fL 80.0-100. 0 MCHC; Below Low Threshold (test code = 34210-6) 30.7 g/dl 32.0-3 6.0 RDW; Above High Threshold (test code = 788-0) 15.2 % 11.0-15. 0 PLATELET COUNT; Normal (test code = 777-3) 282 {Thousand/u} 140-400 N MPV; Normal (test code = 18188-1) 9.5 fL 7.5-12.5 N ABSOLUTE NEUTROPHILS (test code = ABSOLUTE NEUTROPHILS) 4322 {cells/uL} 4885-2500 N ABSOLUTE LYMPHOCYTES (test code = ABSOLUTE LYMPHOCYTES) 1776 {cells/uL} 850-3900 N ABSOLUTE MONOCYTES (test code = ABSOLUTE MONOCYTES) 436 {cells/uL} 200-950 N ABSOLUTE EOSINOPHILS (test code = ABSOLUTE EOSINOPHILS) 114 {cells/ uL} 15-500 N ABSOLUTE BASOPHILS (test code = ABSOLUTE BASOPHILS) 54 {cells/uL} 0 -200 N NEUTROPHILS (test code = NEUTROPHILS) 64.5 % N LYMPHOCYTES (test code = LYMPHOCYTES) 26.5 % N MONOCYTES; Normal (test code = 06529-9) 6.5 % N EOSINOPHILS; Normal (test code = 14023-1) 1.7 % N BASOPHILS; Normal (test code = 96134-6) 0.8 % N [facility] Knee wo contrast [id number] 14:58:00 PROCEDURE INFORMATION:Exam: MR Left Lower Extremity Joint Without Contrast, Knee Exam date and time: 11/24/2019 3:10 PMAge: 29 years oldClinical indication: Effus ion, unspecified knee; Pain in left knee; Stiffnessof left knee, not elsewhere c lassified; Additional info: M. 25.469 swelling ofknee/m25.662 decreased range of motion of left kneeTECHNIQUE:Imaging protocol: MR of the Left lower extremity j oint without contrast. Examfocused on the knee.COMPARISON:KNEE 3 VIEWS BILATERAL DX 11/06/2019 2:12 PMFINDINGS:Limitations: Exam partially limited by large body habitus and suboptimalresolution.BONES/JOINTS/CARTILAGE:Patellofemoral compartm ent: Unremarkable. No focal chondral defect. Nosignificant joint effusion. Trace joint effusion is present.Femorotibial compartments: Unremarkable. No focal cho ndral defect.Noncompartmental bone findings: Visualized bone marrow signal is wi thin normallimits. No acute fracture.Extensor mechanism: The quadraceps tendon a nd patella tendon are intact. Themedial and lateral patellofemoral ligaments are intact.Medial meniscus: Degeneration in the medial meniscus without definite te ar.Lateral meniscus: Intact. No evidence of tear.Medial capsule/supporting struc tures: There is edema surrounding the medialcollateral ligament consistent with grade 1 sprain.Lateral capsule/supporting structures: Unremarkable. No evidence of tear.Anterior cruciate ligament: Intact. No evidence of tear.Posterior crucia te ligament: Intact. No evidence of tear.Soft tissues: Mild subcutaneous edema a long the medial knee. Lobulatedpopliteal cyst is present measuring up to 2.9 x 1 .0 x 4.8 cm.IMPRESSION:1. Partially limited exam.2. Grade 1 MCL sprain.3. Medial meniscus degeneration without definite tear.4. Trace joint effusion.5. Poplitea l cyst.Maximiliano Holliday MD On 11/24/2019 17:29:17; [id number]--Oxke by: Maximiliano Holliday MDDictated Date/time: 11/24/19 17:29Electronically Signed by: Maximiliano Holliday MD 11/24/2016:29FINAL REPORTUnPrimary Children's Hospital [facility]icians[Q] FECAL GLOBIN BY [id number] 00:00:00* Test Item Value Reference Range Interpretation Comments FECAL GLOBIN BY IMMUNOCHEMISTRY (test code = 65660-9) See Comment FECAL GLOBIN BY IMMUNOCHEMISTRY Micro Number: [id number] Test Status: Final Specimen Source: [email or web address] (Social [employer]) FOBT TEST CARD Specimen Quality: Adequate Fecal Globin: Not Detected We received an InSure card with a non-specific order. Based upon the specimen submitted, the fecal globin test was performed. If this is not what you intended to order, please contact your local client integration manager immediately so that we can adjust our billing appropriately. You may also inquire about alternative or additional testing. [facility] K[facility] 3 Views Bilateral [id number] 14:12:00EXAM: XR BILATERAL KNEE 3 VIEWSDATE: 11/06/2019 14:12 CSTINDICATION: - swellingCOMPARISON: None.TECHNIQUE: Standing AP, sunrise and lateral radiographs of both kneesFINDINGS:Right knee: No acute fracture or malalignment is identified. Joint spaces arepreserved.No knee joint effusion is present. No soft tissue abnormality is identified.Left knee: No acute fracture or malalignment is identified. Joint spaces arepreserved.No knee joint effusion is present. No soft tissue abnormality is identified.IMPRESSION: No acute abnormality.--This report was dictated by a B2B Appointment Setter/Fellow/Physician Bill Peddler. Ihave personallyreviewed the images as well as the interpretation and agree with the findings.Read by: Xena Olvera MD Resident/Fellow/PhysicianAssistant: Xena Olvera MDDictated Date/time: 11/06/19 14:30Electronically Signed by: Rudy Rodriguez MD 11/06/1915:07FINAL REPORTUnPrimary Children's Hospital [facility]] URIC ACID 2019-11-06 12:37:00* Test Item Value Reference Range Interpretation Comments URIC ACID; Normal (test code = 3086-6) 4.3 mg/dl 2.5-7.0 N Therapeutic target for gout patients: <6.0 mg/dL [facility]] CMP [id number] 12:37:00* Test Item Value Reference Range Interpretation Comments GLUCOSE; Normal (test code = 1547-9) 83 mg/dl 65-99 N Fasting reference interval UREA NITROGEN (BUN) (test code = UREA NITROGEN (BUN)) 9 mg/dl 7-25 N CREATININE (test code = CREATININE) 0.60 mg/dl 0.50-1.10 N eGFR NON- (test code = eGFR NON-RANI N [facility]) 121 {ML/MIN/1.7} > OR = 60 N eGFR (test code = eGFR ) 14 1 {ML/MIN/1.7} > OR = 60 N BUN/CREATININE RATIO (test code = BUN/CREATININE RATIO) NOT APPLICA BLE 6-22 SODIUM (test code = SODIUM) 142 mmol/L 135-146 N POTASSIUM (test code = POTASSIUM) 4.3 mmol/L 3.5-5.3 N CHLORIDE (test code = CHLORIDE) 105 mmol/L 98-110 N CARBON DIOXIDE (test code = CARBON DIOXIDE) 29 mmol/L 20-32 N CALCIUM (test code = CALCIUM) 9.4 mg/dl 8.6-10.2 N PROTEIN, TOTAL (test code = PROTEIN, TOTAL) 6.7 g/dl 6.1-8.1 N ALBUMIN (test code = ALBUMIN) 4.1 g/dl 3.6-5.1 N GLOBULIN (test code = GLOBULIN) 2.6 {G/DL CALC} 1.9-3.7 N ALBUMIN/GLOBULIN RATIO (test code = ALBUMIN/GLOBULIN RATIO) 1.6 {CALC} 1.0-2.5 N BILIRUBIN, TOTAL; Normal (test code = 11510-6) 0.5 mg/dl 0.2-1.2 N ALKALINE PHSPHATASE (test code = ALKALINE PHSPHATASE) 69 u/l 33-115 N AST; Normal (test code = 1916-6) 15 u/l 10-30 N ALT; Normal (test code = 1742-6) 14 u/l 6-29 N [facility]] CBC (INCLUDES DIFF/PLT)2019-11-06 12:37:00* Test Item Value Reference Range Interpretation Comments WHITE BLOOD CELL COUNT (test code = WHITE BLOOD CELL COUNT) 11.2 {Thousand/u} 3.8-10.8 RED BLOOD CELL COUNT (test code = RED BLOOD CELL COUNT) 4.27 {Million/uL} 3.80-5.10 N HEMAGLOBIN; Below Low Threshold (test code = 36554-4) 10.8 g/dl 11.7-15.5 HEMATOCRIT; Below Low Threshold (test code = 4544-3) 34.1 % 3 5.0-45.0 MCV; Below Low Threshold (test code = 787-2) 79.9 fL 80.0-100. 0 MCHC; Below Low Threshold (test code = 20842-9) 31.7 g/dl 32.0-3 6.0 RDW; Above High Threshold (test code = 788-0) 15.5 % 11.0-15. 0 PLATELET COUNT; Normal (test code = 777-3) 309 {Thousand/u} 140-400 N MPV; Normal (test code = 54833-8) 9.7 fL 7.5-12.5 N ABSOLUTE NEUTROPHILS (test code = ABSOLUTE NEUTROPHILS) 6922 {cells/uL} 4938-6326 N ABSOLUTE LYMPHOCYTES (test code = ABSOLUTE LYMPHOCYTES) 3562 {cells/uL} 850-3900 N ABSOLUTE MONOCYTES (test code = ABSOLUTE MONOCYTES) 616 {cells/uL} 200-950 N ABSOLUTE EOSINOPHILS (test code = ABSOLUTE EOSINOPHILS) 45 {cells/u L} 15-500 N ABSOLUTE BASOPHILS (test code = ABSOLUTE BASOPHILS) 56 {cells/uL} 0 -200 N NEUTROPHILS (test code = NEUTROPHILS) 61.8 % N LYMPHOCYTES (test code = LYMPHOCYTES) 31.8 % N MONOCYTES; Normal (test code = 83089-7) 5.5 % N EOSINOPHILS; Normal (test code = 85550-8) 0.4 % N BASOPHILS; Normal (test code = 03034-6) 0.5 % N [facility]iciansBreast Complete Tom [id number] 15:00:00COMPLETE ULTRASOUND OF BOTH BREASTS AND AXILLA: 10/27/2019CLINICAL: /Brca+. COMP ARISON:Comparison is made to exams dated: 02/13/2019 ultrasound and 02/13/2019[facility]. TECHNIQUE: Color flow and real-time ultraso und of both breasts four quadrants,retroareolar, and axilla regions were perform ed. Iverson scale images of thereal-time examination were reviewed. FINDINGS:No a bnormalities were seen sonographically in either breast or either axilla. There has been no significant interval change. IMPRESSION: NEGATIVERECOMMENDATION:Ther e is no sonographic evidence of malignancy. A follow-up mammogram in 4 months is recommended.(02/26/2020) The results werereviewed with the patient. This exam was interpreted at [id number] for [facility]. SUMMARY:The patient will be due for her bilateral screening mammogram in February 2020. Tiny haile/pepito:10/27/2019 15:34:52 Mechanical Service Specialist(s): Katie Carrillo [facility] Campusletter sent: BI-RADS 1/2 Ultrasound BI-RADS: 1 Negative --Read by: Tiny Wilson MDDictated Date/time: 10/27/19 15:34Electronically Sig berry by: Tiny Wilson MD 10/27/1915:34FINAL REPORT [facility]iciansUS Pelvic with Transvaginal and Pelvic Doppler [id number] 14:51:00PROCEDURE INFORMATION:Exam: US Pelvis Complete, Transabdominal and US Pelvis, TransvaginalExam date and time: 10/27/2019 3:48 PMAge: 28 years oldClinical indication: Other: Bleeding for 3 months, on bioidentical hormones;Additional info: /genetic susceptibility to other malignant neoplasmTECHNIQUE:Imaging protocol: Real-time transabdominal and transvaginal pelvic ultrasound(complete) with image documentation. Transvaginal imaging was used for betterevaluation of the endometrium and adnexa.Other technique: Transvaginal and transabdominal pelvic ultrasound wasperformed. Transvginal images were obtained for more detailed evaluation of theendometrial stripe and ovaries.COMPARISON:PELVIS W TRANSVAG AND PELVIS DOPPLER US 03/02/2019 10:52 PMFINDINGS: Transabdominal images of the pelvis show the anteverted uterus measures 8.3 x2.8 x 3.9 cm in size. Uterus not well assessed necessitating transvaginal exam. The transvaginal exam shows normal parenchymal echotexture. The endometrialstripe measures 10 mm in thickness. The right ovary measures 2.7 x 2.2 x 1.7 cm and the left ovary measures 3.3 x1.8 x 2.5 cm. There is normal bilateral ovarian blood flow on dopplerevaluation. There is no adnexal mass. There is a soft tissue nodule adjacent to the leftadnexa measuring 2.1 cm in size. There is no free fluid in the cul-de-sac.IMPRESSION:1. Left parovarian s oft tissue nodule which may represent normal ovariantissue.2. Otherwise unremark able exam.Briseida Cha MD On 2019 11:45:42; [id number]--Jzqc by: Briseida Mishra MDDictated Date/time: 10/28/19 11:45Electronically Signed by: Briseida Cha MD 1911:45FINAL [facility]PORTUn[facility] Abdomen complete [id number] 14:50:00PROCEDURE INFORMATION:Exam: US Abdomen CompleteExam date and time: 10/27/2019 3:30 PMAge: 28 years oldClinical history: Pain; Additional info: /right upper quadrant painTECHNIQUE:Imaging protocol: Real-time ultrasound of the abdomen with image documentation.COMPARISON:No relevant prior studies available.FINDINGS:Liver: Patchy increased hepatic parenchymal echogenicity. No mass.Nointrahepatic duct dilitation. The span of the liver is 18 cm.Gallbladder: Normal. No gallstones. T here is no gallbladder wall thickening orpericholecystic fluid.Common bile duct: Caliber is 4 mm. No choledocholith. No ductal dilatation.Pancreas: Visualized p ancreas is unremarkable.Right kidney: The right kidney measures 10.5 x 5.4 x 5.4 cm.Normal. No mass. Nohydronephrosis.No calculi.Left kidney: The left kidney me asures 10.9 x 5.5 x 6.1 cm. Normal. No mass. Nohydronephrosis. No calculi.Spleen : Normal. No splenomegaly.The spleen measures 13.5 cm in length.Aorta: Normal. N o aneurysm.Inferior vena cava: Unremarkable as visualized.Portal venous: Hepatop edal flow. The caliber of the MPV is 13 mm.IMPRESSION:1. Mild hepatosplenomegaly .2. No gallstones.3. Patchy hepatic steatosis.Martinez Bermudez MD On 2019 10:55:36; [id number]--[id number] by: Martinez Bermudez MDDictated Date/ti me: 10/28/19 10:55Electronically Signed by: Martinez Bermudez MD 1910:55FINAL REPORTUnPrimary Children's [facility]] CMP W/EGFR 2019-10-17 10:35:00* Test Item Value Reference Range Interpretation Comments GLUCOSE; Normal (test code = 1547-9) 90 mg/dl 65-99 N Fasting reference interval UREA NITROGEN (BUN) (test code = UREA NITROGEN (BUN)) 13 mg/dl 7-25 N CREATININE (test code = CREATININE) 0.71 mg/dl 0.50-1.10 N eGFR NON- (test code = eGFR NON-RANI N [facility]) 114 {ML/MIN/1.7} > OR = 60 N eGFR (test code = eGFR ) 13 2 {ML/MIN/1.7} > OR = 60 N BUN/CREATININE RATIO (test code = BUN/CREATININE RATIO) NOT APPLICA BLE 6-22 SODIUM (test code = SODIUM) 139 mmol/L 135-146 N POTASSIUM (test code = POTASSIUM) 4.0 mmol/L 3.5-5.3 N CHLORIDE (test code = CHLORIDE) 106 mmol/L 98-110 N CARBON DIOXIDE (test code = CARBON DIOXIDE) 25 mmol/L 20-32 N CALCIUM (test code = CALCIUM) 8.9 mg/dl 8.6-10.2 N PROTEIN, TOTAL (test code = PROTEIN, TOTAL) 6.4 g/dl 6.1-8.1 N ALBUMIN (test code = ALBUMIN) 3.8 g/dl 3.6-5.1 N GLOBULIN (test code = GLOBULIN) 2.6 {G/DL CALC} 1.9-3.7 N ALBUMIN/GLOBULIN RATIO (test code = ALBUMIN/GLOBULIN RATIO) 1.5 {CALC} 1.0-2.5 N BILIRUBIN, TOTAL; Normal (test code = 13365-6) 0.4 mg/dl 0.2-1.2 N ALKALINE PHSPHATASE (test code = ALKALINE PHSPHATASE) 80 u/l 33-115 N AST; Normal (test code = 1916-6) 20 u/l 10-30 N ALT; Normal (test code = 1742-6) 15 u/l 6-29 N [facility]] URINALYSIS, [id number] 10:35:00* Test Item Value Reference Range Interpretation Comments COLOR; Normal (test code = 5778-6) YELLOW YELLOW N APPEARANCE (test code = APPEARANCE) CLEAR CLEAR N SPECIFIC GRAVITY; Normal (test code = 2965-2) 1.014 1.001-1. 035 N PH; Normal (test code = 2756-5) 5.5 5.0-8.0 N GLUCOSE; Normal (test code = 1547-9) NEGATIVE NEGATIVE N BILIRUBIN; Normal (test code = 31264-3) NEGATIVE NEGATIVE N KETONES; Normal (test code = 65247-0) NEGATIVE NEGATIVE N OCCULT BLOOD; Normal (test code = 28830-1) NEGATIVE NEGATIVE N PROTEIN; Normal (test code = 82832-9) NEGATIVE NEGATIVE N NITRITE; Normal (test code = 83068-5) NEGATIVE NEGATIVE N LEUKOCYTE ESTERASE (test code = LEUKOCYTE ESTERASE) 2+ NE GATIVE A WBC; Abnormal (test code = 6690-2) 20-40 < OR = 5 A RBC; Normal (test code = 789-8) NONE SEEN < OR = 2 N SQUAMOUS EPITHELIAL CELLS; Abnormal (test code = 72931-7) 6-10 < OR = 5 A BACTERIA; Abnormal (test code = 630-4) FEW NONE SEEN A HYALINE CAST; Normal (test code = 42717-4) NONE SEEN NONE SEEN N [facility]] CBC (INCLUDES DIFF/PLT)2019-10-17 10:35:00* Test Item Value Reference Range Interpretation Comments WHITE BLOOD CELL COUNT (test code = WHITE BLOOD CELL COUNT) 8.0 {Thousand/u} 3.8-10.8 N RED BLOOD CELL COUNT (test code = RED BLOOD CELL COUNT) 4.30 {Million/uL} 3.80-5.10 N HEMAGLOBIN; Below Low Threshold (test code = 64675-0) 10.8 g/dl 11.7-15.5 HEMATOCRIT; Below Low Threshold (test code = 4544-3) 34.5 % 3 5.0-45.0 MCV; Normal (test code = 787-2) 80.2 fL 80.0-100.0 N MCHC; Below Low Threshold (test code = 30118-7) 31.3 g/dl 32.0-3 6.0 RDW; Above High Threshold (test code = 788-0) 15.5 % 11.0-15. 0 PLATELET COUNT; Normal (test code = 777-3) 287 {Thousand/u} 140-400 N MPV; Normal (test code = 00522-4) 9.5 fL 7.5-12.5 N ABSOLUTE NEUTROPHILS (test code = ABSOLUTE NEUTROPHILS) 3800 {cells/uL} 1844-1282 N ABSOLUTE LYMPHOCYTES (test code = ABSOLUTE LYMPHOCYTES) 3440 {cells/uL} 850-3900 N ABSOLUTE MONOCYTES (test code = ABSOLUTE MONOCYTES) 544 {cells/uL} 200-950 N ABSOLUTE EOSINOPHILS (test code = ABSOLUTE EOSINOPHILS) 160 {cells/ uL} 15-500 N ABSOLUTE BASOPHILS (test code = ABSOLUTE BASOPHILS) 56 {cells/uL} 0 -200 N NEUTROPHILS (test code = NEUTROPHILS) 47.5 % N LYMPHOCYTES (test code = LYMPHOCYTES) 43.0 % N MONOCYTES; Normal (test code = 76452-5) 6.8 % N EOSINOPHILS; Normal (test code = 98099-5) 2.0 % N BASOPHILS; Normal (test code = 02958-9) 0.7 % N [facility]] CULTURE, URINE, [id number] 10:35:00* Test Item Value Reference Range Interpretation Comments CULTURE (test code = CULTURE) See Comment A CULTURE, URINE, ROUTINE Micro Number: [id number] Test Status: Final Specimen Source: URINE Specimen Quality: Adequate Result: 1,000-10,000 CFU/mL of Group B Streptococcus isolated Beta-hemolytic Streptococci are predictably susceptible to penicillin and other beta- lactams. Susceptibility testing not routinely performed. Comment: Erythromycin and clindamycin are not recommended for treatment of urinary tract infections, but clindamycin may be useful for treatment of rectovaginal colonization or infection. Any amount of group B Streptococcus in urine specimens obtained from females is a marker of genital tract colonization. If this patient is , please refer to ACOG guidelines for appropriate screening and management of women. Result: 10,000-50,000 CFU/mL of Streptococcus viridans group May represent colonizers from external and internal genitalia. No further testing (including susceptibility) will be performed. COMMENT: Additional organism(s) less than 10,000 CFU/mL isolated. These organism s, commonly found on external and internal genitalia, are considered colonizers. No further testing performed. [facility][O] Urine Dipstick (In Office)2019-06-11 10:42:00 * Test Item Value Reference Range Interpretation Comments Glucose (test code = Glucose) normal N LEUKOCYTES (test code = LEUKOCYTES) trace NITRITE; Normal (test code = 61424-5) neg N UROBILINOGEN; Normal (test code = 26101-9) normal N PROTEIN (test code = 09238-4) trace pH (test code = pH) 5 URINE BLOOD (test code = 14518-0) trace SPECIFIC GRAVITY (test code = 2965-2) 1.015 KETONES (test code = 75796-3) trace BILIRUBIN; Normal (test code = 17473-9) normal N COLOR URINE (test code = 5778-6) thom APPEARANCE (test code = 5767-9) cloudy Lone [facility]] CULTURE, URINE, BSNMYRS0769-06-23 00:00:00* Test Item Value Reference Range Interpretation Comments CULTURE (test code = CULTURE) See Comment CULTURE, URINE, ROUTINE MICRO NUMBER: [id number] TEST STATUS: FINAL SPECIMEN SOURCE: URINE SPECIMEN QUALITY: ADEQUATE RESULT: 10,000-50,000 CFU/mL of Mixed non-uropathogenic Gram positive oliver. [facility]icians[facility]LECULAR PXIWUNXXWQ4311-96-40 03:37:00Endocervix *NA*(03/02/19 10:37 PM)[facility]LE[facility] OFWTLHMEAG0235-79-22 03:37:00 Negative *NA*(03/02/19 10:37 PM)[facility]ann[facility]LECULAR VSJEEVHBYC1281-86-55 03:37:00Negative *NA*(03/02/19 10:37 PM)[facility]annCHEM XBDDD2411-85-79 00:48:81157Ydmapjze HermannCHEM UCXLL8928-18-05 00:48:00* Test Item Value Reference Range Interpretation Comments A/G Ratio (test code = A/G Ratio) 0.9 1 0.7-1.6 [facility]annCHE[facility] SWNTG4641-83-28 00:48:0013.2[facility]annCHEM PANEL 2019-03-03 00:48:00* Test Item Value Reference Range Interpretation Comments B/C Ratio (test code = B/C Ratio) 15 1 6-25 [facility]annCHE[facility] PRAMS0593-22-13 00:48:004.3[facility]annCHEM PANEL 2019-03-03 00:48:78614Jecxnwht HermannCHEM LXZIV0225-05-71 00:48:0011[facility]annCHEM FGWWQ1554-61-30 00:48:000.74[facility]annCHEM XOXUK0931-48-95 00:48:0080[facility]annCHEM UJGIP1518-22-50 00:48:98722Yfzbnpku HermannCHEM VQYDL2922-49-69 00:48:004.2[facility]annCHEM SOZIK9393-21-70 00:48:0025 [facility] EZOLS9848-89-31 00:48:008.5[facility]annCHEM PANEL 2019-03-03 00:48:24783Iqjokyti HermannCHEM IXCDM0356-03-49 00:48:008.1[facility]annCHEM IVZFC8178-03-50 00:48:003.8[facility]annCHEM MGKGR5328-39-95 00:48:0091[facility]annCHEM VLDMJ7135-38-51 00:48:000.9[facility]annCHEM HLGUG9770-78-42 00:48:0028[facility]annCHEM JGQIB7988-73-97 00:48:0035 [facility] SiogjnmJMHFATRVENTGI8102-92-89 00:48:00Negative *NA*(03/02/19 7:48 PM) [facility] DhnpjzcQVQNYISPAT3772-37-36 00:48:000.1[facility]annHEMATOLOGY 2019-03-03 00:48:000.9[facility] KygucpxUSBPVOLCKU2213-01-92 00:48:000.1[facility] VnwfdryMFBHTMGLZI6429-56-64 00:48:009.0[facility] OpxnbbpNHEVTNDVMK5990-31-04 00:48:003.6[facility] UgoydfkAGJGUYSCSZ4269-89-67 00:48:0026.2[facility] IUYBFGPVTY1380-78-17 00:48:000.8[facility] WpfeuofEYAWWQHCIF0851-88-59 00:48:001.0 [facility] DajryozJIWBAPLBWJ9483-14-83 00:48:006.2[facility]annHEMATOLOGY 2019-03-03 00:48:0065.7[facility] LqhcuiiJDOIXVNPGP4926-95-13 00:48:15616Ebbyzfhu XnvbjwjSRLZFTXZBL3574-81-89 00:48:0014.9[facility] XnikzzwMFJVXQSKVR0541-77-91 00:48:007.5[facility] XrizroaQSYUKGJQRQ8567-64-50 00:48:0012.5[facility] QZFLHTWRMR5898-03-06 00:48:0085.6[facility] JsbezylKMUQWESPZE8301-30-55 00:48:00 39.2[facility] HiisfouOJLIJMKXDS2235-27-95 00:48:00* Test Item Value Reference Range Interpretation Comments MCH (test code = MCH) 27.3 pg 27.0-31.0 [facility] GvofixuZMVCFQVDGN1553-56-40 00:48:004.58[facility] HermannHEMATOLOGY 2019-03-03 00:48:0031.9[facility] SuooykrZIUFAVLWNL3585-73-52 00:48:0013.7[facility]annURINE AND DWUJY4718-50-52 00:48:00Negative *NA*(03/02/19 7:48 PM)[facility] AND PPXZR2748-79-29 00:48:00Negative (03/02/19 7:48 PM)[facility] AND ZEGQQ2823-06-53 00:48:00Slight *ABN*(03/02/19 7:48 PM)[facility] AND SXNSI8313-68-29 00:48:00* Test Item Value Reference Range Interpretation Comments UA Spec Grav (test code = UA Spec Grav) 1.020 1 [facility] AND QHHIY2530-25-74 00:48:00Yellow *NA*(03/02/19 7:48 PM) [facility] OTWAM9228-82-45 00:48:00* Test Item Value Reference Range Interpretation Comments UA pH (test code = UA pH) 5.0 1 5.0-8.0 [facility] AND XQLWI0228-86-06 00:48:002[facility] AND ZWQED3547-40-22 00:48:00Trace *ABN*(03/02/19 7:48 PM)[facility] AND CCRQU2430-94-69 00:48:00Trace *ABN*(03/02/19 7:48 PM)[facility] YVBPL2629-60-84 00:48:00Negative (03/02/19 7:48 PM)[facility] AND BXKWT9272-17-71 00:48:003[facility] AND FNIWX4673-27-50 00:48:00 Negative *NA*(03/02/19 7:48 PM)[facility] CYRKI8370-70-83 00:48:00 Negative (03/02/19 7:48 PM)[facility] MWRCO7793-68-55 00:48:001.0 [facility]ann[facility] Tom QK4651-97-62 14:36:00COMPLETE ULTRASOUND OF BOTH BREASTS AND AXILLA: 02/13/2019CLINICAL: /+Braca Test. COMPARISON:Comparison is made to exam dated: 02/13/2019 mammogram - [facility]. TECHNIQUE: Color flow and real-time ultrasound of both breasts four quadrants,retroareolar, and axilla regions were performed. Iverson scale images of thereal-time examination were reviewed. FINDINGS:No abnormalities were seen sonographically in either breast or either axilla. IMPRESSION: NEGATIVERECOMME NDATION:There is no sonographic evidence of malignancy. A 1 year screening mammo gram and an ultrasound is recommended.(02/14/2020) This exam was interpreted at [id number] for [facility]. Haritha Luna M.D. ap/penrad:02/13/2019 1 4:58:44 Mechanical Service Specialist(s): Katie Carrillo [facility] letter sent: BI-RADS 1/2 Ultrasound BI-RADS: 1 Negative--Read by: Haritha Luna MDDictated Date/time: 02/13/19 14:58Electronically Signed by: Haritha Luna 02/13/1914:58[facility] Tom [id number] 13:36:00BILATERAL FIRST EVER DIGITAL DIAGNOSTIC MAMMOGRAM WITH CAD: 02/13/2019CLINICAL: /Family History. Current study was evaluated with a Computer Aided Detection (CAD) system. COMPARISON:There are no comparison films available as [facility]. TECHNIQUE: Mammographic views were obtained using digit al acquisition. Matrix Electronic Measuring 1.3 was utilized for computer aided detection. FI NDINGS:There are scattered fibroglandular densities in both breasts. No signific ant masses, calcifications, or other findings are seen in eitherbreast. IMPRESSI ON: BENIGNRECOMMENDATION:There is no mammographic evidence of malignancy. A 1 ye arscreening mammogram is recommended.(02/14/2020) This exam was interpreted at [id number] for [facility]. SUMMARY:Ultrasound will be performed at this time; please see dedicated separatereport. Haritha duggan/pe nrad:02/13/2019 14:31:33 Mechanical Service Specialist(s): Page Waters [facility] BI-[facility]ADS: 2 Benign--Read by: Haritha Luna MDDictated Date/time: 02/13/19 14:31Electronically Signed by: Haritha Luna MD 02/13/1914:31FINAL REPORTUnPrimary [facility][O] Urine Test (in office)2018-12-26 14:58:00* Test Item Value Reference Range Interpretation Comments Test, Urine; Normal (test code = 2106-3) negative N Control Line Present? (test code = Control Line Present?) Yes N Test Lot# (test code = Test Lot#) [id number] N [facility]. [facility] - Surgical Sniwlf3054-68-55 00:00:00* Test Item Value Reference Range Interpretation Comments Surgical Biopsy REPORT (test code = Surgical Biopsy REPORT) See Com ment [facility][O] Urine Test (in office)2018-12-09 14:26:00* Test Item Value Reference Range Interpretation Comments Test, Urine; Normal (test code = 2106-3) neg N Control Line Present? (test code = Control Line Present?) Yes N [facility][O] Urine Dipstick (In Office)2018-12-09 14:19:00 * Test Item Value Reference Range Interpretation Comments Glucose (test code = Glucose) normal N LEUKOCYTES (test code = LEUKOCYTES) trace NITRITE; Normal (test code = 70835-2) neg N UROBILINOGEN; Normal (test code = 99072-1) normal N PROTEIN; Normal (test code = 15213-2) neg N pH (test code = pH) 6 URINE BLOOD; Normal (test code = 73590-2) trace N SPECIFIC GRAVITY (test code = 2965-2) 1.015 KETONES; Normal (test code = 56141-3) neg N BILIRUBIN; Normal (test code = 89834-9) normal N COLOR URINE (test code = 5778-6) thom APPEARANCE (test code = 5767-9) clear [facility][Q] SUREPATH PAP AND HR HPV [id number] 00:00:00 * Test Item Value Reference Range Interpretation Comments CLINICAL INFORMATION: (test code = CLINICAL INFORMATION:) See Comme nt N WWE/ROUTINE PROCESS IMPROVEMENT CONSULTANT EXAM LMP: (test code = LMP:) See Comment N NONE GIVEN PREV. PAP: (test code = PREV. PAP:) See Comment N NONE GIVEN PREV. BX: (test code = PREV. BX:) See Comment N NONE GIVEN SOURCE: (test code = SOURCE:) See Comment N None given STATEMENT OF ADEQUACY: (test code = STATEMENT OF ADEQUACY:) See Com ment N Satisfactory for evaluation.Endocervical/transformation zone componentpresent.Age and/or menstrual status not provided INTERPRETATION/RESULT:; Normal (test code = 74536-4) See Comment N Negative for intraepithelial lesion or malignancy. SAGGER PREPARER: (test code = SAGGER PREPARER:) See Comment N [facility], CT(ASCP)CT screening location: [address], [place] [address] REVIEW SAGGER PREPARER: (test code = REVIEW SAGGER PREPARER:) See Comment N LLG, CT (ASCP)CT screening location: [address], [place] [address] HPV mRNA E6/E7, SUREPATH VIAL (test code = HPV mRNA E6 /E7, SUREPATH VIAL) Detected NOT DETECTED A This test was perfor med using the APTIMA HPV Assay ([employer] This assay detects E6/E7 viral messenger RNA (mRNA) from 14high- risk HPV types (16,18,31,33,35,39,45,51,52,56,58,59,66,68).The analytical performance characteristics ofthis assay, when used to test SurePath specimens,have been determined by [employer] [facility][Q] CHLAMYDIA/N. GONORRHOEAE RNA, [id number] 00:00:00* Test Item Value Reference Range Interpretation Comments CHLAMYDIA TRACHOMATIS RNA, TMA; Normal (test code = 49002-3) NOT DETECTED NOT DETECTED N NIESSERIA GONORRHOEAE RNA,M TMA; Normal (test code = 46177-5 ) NOT DETECTED NOT DETECTED N [facility]] URINALYSIS, COMPLETE W/REFLEX TO CULTURE 2018-08-29 09:00:00* Test Item Value Reference Range Interpretation Comments WBC; Abnormal (test code = 6690-2) 11-30 0-5 A RBC (test code = 789-8) 0-2 0-2 Epithelial Cells (non renal); Abnormal (test code = 36245-4) >10 0-10 A Epithelial Cells (renal) (test code = 09659-0) See Comment Casts (test code = 00214-4) See Comment Cast Type (test code = 93897-7) See Comment Crystals (test code = 14068-2) See Comment Crystal Type (test code = 5782-8) See Comment Mucus Threads (test code = 63060-4) Present Not Estab. Urine Culture, Routine (test code = 630-4) Final report None seen/F ew Yeast (test code = 63738-5) See Comment Trichomonas (test code = 23375-3) See Comment Comment (test code = Comment) See Comment Microscopic Examination (test code = 87360-4) See Comment Microscopic was indicated and was performed. Specific [place] (test code = 2965-2) 1.020 1.005-1.030 pH (test code = 5803-2) 5.5 5.0-7.5 Urine-Color (test code = 5778-6) Yellow Yellow Appearance (test code = 5767-9) Clear Clear WBC Esterase; Abnormal (test code = 5799-2) 3+ Negative A Protein (test code = 09446-1) Negative Negative/Trace Glucose (test code = 2349-9) Negative Negative Ketones (test code = 2514-8) Negative Negative Occult Blood (test code = 5794-3) Negative Negative Bilirubin (test code = 5770-3) Negative Negative Urobilinogen,Semi-Qn (test code = 39809-1) 0.2 mg/dL 0.2-1.0 Nitrite, Urine (test code = 5802-4) Negative Negative Urinalysis Reflex (test code = Urinalysis Reflex) See Comment This specimen has reflexed to a Urine Culture. Result 1 (test code = Result 1) No growth [facility]] CMP W/[id number] 09:00:00* Test Item Value Reference Range Interpretation Comments Glucose (test code = 2345-7) 96 mg/dL 65-99 BUN (test code = 3094-0) 9 mg/dL 6-20 Creatinine (test code = 2160-0) 0.66 mg/dL 0.57-1.00 eGFR If NonAfricn Am (test code = 45020-2) 120 mL/min/1.7 >59 eGFR If Africn Am (test code = 26244-4) 138 mL/min/1.7 >59 BUN/Creatinine Ratio (test code = 3097-3) 14 9-23 Sodium, Serum (test code = 2951-2) 139 mmol/L 134-144 Potassium (test code = 2823-3) 4.5 mmol/L 3.5-5.2 Chloride (test code = 2075-0) 103 mmol/L 96-106 Carbon Dioxide, Total (test code = 8-9) 25 mmol/L 20-29 Calcium, Serum (test code = 51730-3) 9.4 mg/dL 8.7-10.2 Protein, Total (test code = 2885-2) 6.6 g/dL 6.0-8.5 Albumin (test code = 1751-7) 4.1 g/dL 3.5-5.5 Globalulin, Total (test code = 00812-2) 2.5 g/dL 1.5-4.5 A/G Ratio (test code = 1759-0) 1.6 1.2-2.2 Bilirubin, Total (test code = 1974-2) 0.9 mg/dL 0.0-1.2 Alkaline Phosphatase (test code = 6768-6) 80 {IU/L} 39-117 AST (SGOT) (test code = 1920-8) 12 {IU/L} 0-40 ALT (SGPT) (test code = 1742-6) 14 {IU/L} 0-32 [facility]] CBC (INCLUDES DIFF/PLT)2018-08-29 09:00:00* Test Item Value Reference Range Interpretation Comments WBC (test code = 6690-2) 6.0 {x10E3/uL} 3.4-10.8 RBC (test code = 789-8) 4.37 {x10E6/uL} 3.77-5.28 Hemoglobin (test code = 718-7) 12.9 g/dL 11.1-15.9 Hematocrit (test code = 4544-3) 39.3 % 34.0-46.6 MCV (test code = 787-2) 90 fL 79-97 MCH (test code = 785-6) 29.5 pg 26.6-33.0 MCHC (test code = 786-4) 32.8 g/dL 31.5-35.7 RDW (test code = 788-0) 13.6 % 12.3-15.4 Platelets (test code = 777-3) 247 {x10E3/uL} 150-379 Neutrophils (test code = 770-8) 63 % Not Estab. Lymphs (test code = 736-9) 27 % Not Estab. Monocytes (test code = 5905-5) 7 % Not Estab. Eos (test code = 713-8) 2 % Not Estab. Basos (test code = 706-2) 1 % Not Estab. Immature Cells (test code = Immature Cells) See Comment Neutrophils (Absolute) (test code = 751-8) 3.8 {x10E3/uL} 1.4-7.0 Lymphs (Absolute) (test code = 731-0) 1.6 {x10E3/uL} 0.7-3.1 Monocytes(Absolute) (test code = 742-7) 0.4 {x10E3/uL} 0.1-0.9 Eos (Absolute) (test code = 711-2) 0.1 {x10E3/uL} 0.0-0.4 Baso (Absolute) (test code = 704-7) 0.0 {x10E3/uL} 0.0-0.2 Immature Granulocytes (test code = 50424-9) 0 % Not Estab. Immature Grans (Abs) (test code = 87904-1) 0.0 {x10E3/uL} 0.0-0.1 NRBC (test code = 68410-4) See Comment Hematology Comments: (test code = 07808-9) See Comment [facility][L] Lipid Panel w/ Chol/HDL [id number] 09:00:00* Test Item Value Reference Range Interpretation Comments Cholesterol, Total; Above High Threshold (test code = 2093-3) 21 5 mg/dL 100-199 Triglycerides; Above High Threshold (test code = 2571-8) 203 mg/dL 0-149 HDL Cholesterol (test code = 2085-9) 63 mg/dL >39 VLDL Cholesterol [place]; Above High Threshold (test code = 44855-3) 41 mg/dL 5-40 LDL Cholesterol Calc; Above High Threshold (test code = 08579-6) 111 mg/dL 0-99 Comment: (test code = Comment:) See Comment T. Chol/HDL Ratio (test code = 9830-1) 3.4 {ratio} 0.0-4.4 T. Chol/HDL Ratio Men Women 1/2 Avg.Risk 3.4 3.3 Avg.Risk 5.0 4.4 2X Avg.Risk 9.6 7.1 3X Avg.Risk 23.4 11.0 [facility]] IRON AND TOTAL IRON BINDING CAPACITY 2018-08-29 09:00:00* Test Item Value Reference Range Interpretation Comments Iron Bind.Cap.(TIBC); Above High Threshold (test code = 2500 -7) 497 ug/dL 250-450 UIBC (test code = 2501-5) 340 ug/dL 131-425 Iron, Serum (test code = 2498-4) 157 ug/dL 27-159 Iron Saturation (test code = 2502-3) 32 % 15-55 [facility]] HEMOGLOBIN [id number] 09:00:00* Test Item Value Reference Range Interpretation Comments Hemoglobin A1c (test code = 4548-4) 5.2 % 4.8-5.6 . Prediabetes: 5.7 - 6.4 Diabetes: >6.4 Glycemic control for adults with diabetes: <7.0 [facility]] [place] [id number] 09:00:00* Test Item Value Reference Range Interpretation Comments Cancer Antigen (CA) 125 (test code = 57313-2) 9.5 U/mL 0.0-38.1 David ECLIA methodology [facility]] VITAMIN D, 25-HYDROXY, LC/MS/[id number] 09:00:00* Test Item Value Reference Range Interpretation Comments Vitamin D, 25-Hydroxy; Below Low Threshold (test code = 6229 2-8) 9.7 ng/mL 30.0-100.0 Vitamin D deficiency has bee n defined by the [place] of[employer] and an Endocrine Society practice guideline as alevel of serum 25-OH vitamin D less than 20 ng/mL (1,2).The Endocrine Society went on to further define vitamin Dinsufficiency as a level between 21 and 29 ng/mL (2).1. IOM ([place] [employer]). 2010. Dietary reference intakes for calcium and D. [place]: The National Academies Press.2. Cayetano MF, Elsa PALACIOS, Sondra JENSEN, et al. Evaluation, treatment, and prevention of vitamin D deficiency: an Endocrine Society clinical practice guideline. JCEM. 2010; 96(4):1911-30. [facility]] TSH, 3RD GENERATION W/REFLEX TO FT4 2018-08-29 09:00:00* Test Item Value Reference Range Interpretation Comments TSH (test code = 35465-5) 1.940 {uIU/mL} 0.450-4.500 [facility]] VITAMIN [id number] 09:00:00* Test Item Value Reference Range Interpretation Comments Vitamin B12; Below Low Threshold (test code = 2132-9) 172 pg/mL 232-1245 [facility]] AKFMREYO9815-29-87 09:00:00* Test Item Value Reference Range Interpretation Comments Ferritin, Serum (test code = 2276-4) 18 ng/mL 15-150 [facility] JauwirsymaCARNJMBEJL0957-30-49 10:24:004.05[facility] Tod VSNRXENEDJ6009-08-42 10:24:007.8[facility] FdgxoflXCTMIRJHSJ9465-08-91 10:24:00 26.8[facility] RkzfwguZJGJYOWHVQ4363-75-61 10:24:0066.1[facility]annHEMATOLOGY 2016-06-11 10:24:00* Test Item Value Reference Range Interpretation Comments MCH (test code = MCH) 19.3 pg 27.0-31.0 [facility] KzidlexNIKWMCUWAI2305-78-64 10:24:0029.2[facility]annHEMATOLOGY 2016-06-11 10:24:0028.0[facility] UozsilsCJUQKGOZLC9867-26-59 10:24:55987Llnjnssk BjkksjzQQPPPHOPXN2544-51-67 10:24:008.5[facility] TqgfnikRRWNNCHPVW5881-84-22 10:24:009.emorial VefygvlIVNIWROHDM2180-75-24 10:24:003+ *NA*(06/11/16 5:24 AM) [facility] FuhohmcAEELILSAPB5221-81-45 10:24:002.4[facility]annHEMATOLOGY 2016-06-11 10:24:000.9[facility] ZuyfeuyXAHVONZZOH3362-86-64 10:24:005.9[facility] VwsqavyWHSQBFVMCA3706-11-40 10:24:000.1[facility] KbmdfwfBKSCAOKYJX5671-66-05 10:24:000.2[facility] WlshxxlKHJCEHTYUW8713-80-53 10:24:000.6[facility] JWFVRNAPSH3437-48-05 10:24:0064.1[facility] HuqgqbxBGWENBTTAH0717-04-06 10:24:00 6.8[facility] WoygktwQAHIUCJTHJ4228-13-93 10:24:001.7[facility]annHEMATOLOGY 2016-06-11 10:24:0026.5[facility] VsspmuxPDBBWAFJAOON6222-48-31 10:55:01357 [facility] OjjxfdmRDUCSIROPLIQ0585-13-34 10:55:0089[facility] HermannELECTROLYTES 2016-06-10 10:55:003[facility] GpkfnrwFUGQEHKYHIDH5009-90-93 10:55:000.52[facility] UneinrqICNOZYJHBWQI3943-98-16 10:55:33371Nedwlizr ZdlnameWAFVDBWLIEQP7184-21-23 10:55:003.9[facility] NsrkmdiSRGJNREKIAHC9950-12-65 10:55:35576Zonrsuex Tod GDVUKPVZMCNM2518-88-02 10:55:0027[facility] NhasntdSUFHTZEOCJVC7589-66-46 10:55:00 8.0[facility] BrmvgcyZOPACCKKVPDE6092-32-74 10:55:0010.9[facility]annHEMATOLOGY 2016-06-10 10:55:00Normal (06/10/16 5:55 AM)[facility] QwajrllEMZDDQNJMR7039-48-92 10:55:000.1[facility] ZldgwecKITNZIGFSL9425-38-22 10:55:003+ *NA*(06/10/16 5:55 AM) [facility] ZceubjuNOOLILLHLI0098-64-15 10:55:000.5[facility]annHEMATOLOGY 2016-06-10 10:55:000.1[facility] BgfudczBPSNLAGTTT8305-96-22 10:55:002.6[facility] JyobwsmMBLSSFETMD6360-13-18 10:55:004.9[facility] StlgewoAEBXHVOJOI7948-24-98 10:55:002+ (06/10/16 5:55 AM)[facility] RaedqfrCHIDNWMYQZ8616-38-90 10:55:00 Moderate *ABN*(06/10/16 5:55 AM)[facility] FmeqnknAPRILVGPSD3516-07-74 10:55:0031.3 [facility] CkesnilXZBTDXVZFX0229-67-76 10:55:000.9[facility]annHEMATOLOGY 2016-06-10 10:55:001.5[facility] AhcnwxnLJMFIBOLCX3758-07-70 10:55:006.5[facility] HslzmvqMFSCLNBZBB6501-09-88 10:55:0059.8[facility] CquxwnvEYBXQVAIGA5627-48-06 10:55:003.88[facility] JezswseYVMRQZIMEC5207-05-61 10:55:007.4[facility] Tod LSBQIZXZDQ3784-67-67 10:55:008.2[facility] IvffsshQZVITCGZGZ9021-89-20 10:55:06809 [facility] UunevgpTUWDXUXTNP6268-64-71 10:55:008.6[facility]annHEMATOLOGY 2016-06-10 10:55:0028.9[facility] KoqyblrCOAYJHARSN9806-58-48 10:55:0027.4[facility] XfmsskjNFXUPNMXLZ7048-61-48 10:55:0066.3[facility] OakxkzdJBHCKCUAZD2074-07-92 10:55:0025.8[facility] LzezwjzAMNUWCNUTB6293-77-93 10:55:00* Test Item Value Reference Range Interpretation Comments MCH (test code = MCH) 19.2 pg 27.0-31.0 [facility]annANEMIA RYCCN3445-33-95 08:35:0019[facility] HermannANEMIA STUDY 2016-06-09 08:35:46250Eenahfrz HermannANEMIA PXTGQ0116-69-95 08:35:12951Jjmnzvvs HermannANEMIA HJQTH1717-11-85 08:35:003[facility]annANEMIA CCVEY5194-37-06 08:35:0017.5[facility] HermannANEMIA ARSZH5179-24-97 08:35:37048Chpqioll [facility] ANEMIA IMBKM0803-05-57 08:35:004[facility]annCHEM FBFCT5968-18-60 08:35:000.9 [facility]annCHEM EOLYI0147-01-59 08:35:003.5[facility]annCHEM PANEL 2016-06-09 08:35:003[facility] HermannCHEM ZCDXE6912-10-61 08:35:0010.9[facility] HermannCHEM UYLBH0158-95-82 08:35:64733Gpyrzunf HermannCHEM RMTJR4285-14-58 08:35:002[facility] HermannCHEM KUWJG4284-11-59 08:35:003.0[facility] HermannCHEM LEWSA5013-80-28 08:35:0018[facility] HermannCHEM APNCD9207-44-64 08:35:0017 [facility]annCHEM XVIRX4337-29-98 08:35:006.5[facility] HermannCHEM PANEL 2016-06-09 08:35:003.9[facility] HermannCHEM NHUEQ4093-96-38 08:35:86255Ziqxuvwp HermannCHEM EHJGT6680-41-19 08:35:0025[facility] HermannCHEM TQJKN0363-89-88 08:35:007.9[facility] HermannCHEM BABGT6223-23-14 08:35:0056[facility] HermannCHEM CUVIZ2294-49-01 08:35:000.9[facility] HermannCHEM WWQEU3062-94-76 08:35:0089 [facility]annCHEM NMYPS0496-38-51 08:35:000.59[facility] HermannCHEM PANEL 2016-06-09 08:35:55636Rphbzyfy KxbubfgJGUGJMXFWV9979-08-16 08:35:0029.2[facility] WizdhjkUNJUMSFQBS5920-85-43 08:35:12445Sjqkbous GjdtqtyQLKWQWYXKI9667-70-65 08:35:008.7[facility] UogielzMJRQBUMYCB0014-93-68 08:35:0027.4[facility] Tod YSAUSAFAQZ7436-54-80 08:35:0026.7[facility] VtpcwpxJLEEQZXIXG2802-36-95 08:35:00 7.8[facility] CxoqzzoBKNNUSGYHU8960-96-34 08:35:004.04[facility] HermannHEMATOLOGY 2016-06-09 08:35:007.8[facility] FhrolerJYKYHVMLPT5407-52-76 08:35:00* Test Item Value Reference Range Interpretation Comments MCH (test code = MCH) 19.3 pg 27.0-31.0 [facility] KaohqtpSZSINYFCRD0061-51-16 08:35:0066.1[facility] HermannHEMATOLOGY 2016-06-09 08:35:002.6[facility] TizgyziXAURUZYNAD5714-18-28 08:35:003.3[facility] WtsbjhrGGSUGDVZHR7938-69-20 08:35:003+ *NA*(06/09/16 3:35 AM)[facility] Tod SLCCUZYHXL0966-12-46 08:35:000.1[facility] RyrlbwwFZFAVADNBF3204-00-56 08:35:000.1 [facility] RhsbfdyECHUUANGKA7494-99-10 08:35:000.5[facility] HermannHEMATOLOGY 2016-06-09 08:35:000.9[facility] UvdzynpOLKBFMAYHY0216-64-44 08:35:001.7[facility] QbuttrhZNMTMRVESD0385-41-86 08:35:006.2[facility] EebzhxsLGPPMRSRQM1876-18-81 08:35:003.8[facility] JnvmrpxVHDVHOBTYG8573-90-18 08:35:0042.8[facility] NOLFAGYDDZ9234-94-74 08:35:0048.4[facility] HermannBLOOD BANK NALENLC0443-47-39 07:54:00Product available (06/09/16 2:54 AM)[facility] HermannANEMIA STUDY 2016-06-08 19:52:0018.9[facility] HermannANEMIA MODEB9301-12-71 19:52:06179 [facility]annANEMIA RTRNC0429-84-47 18:45:004[facility] HermannANEMIA STUDY 2016-06-08 18:45:003[facility] HermannANEMIA RELUC8772-90-38 18:45:80100Ghttbnjl HermannANEMIA AQPLW6116-62-94 18:45:34742Bkuderax HermannANEMIA QLRUP4468-44-50 18:45:0018[facility] HermannCHEM LPKGJ3446-21-02 18:45:003.5[facility] HermannCHEM YFTZP7814-74-71 18:45:002.1[facility] HermannBLOOD BANK NEMZCPX0718-39-05 06:41:00 Negative (06/08/16 1:41 AM)[facility] HermannURINE AND IPWLS3262-45-24 06:41:00 Negative (06/08/16 1:41 AM)[facility] HermannANEMIA TTKJW4048-22-06 05:35:84319 [facility]annANEMIA ZIGTK5398-04-17 05:35:0016.6[facility] HermannANEMIA STUDY 2016-06-08 05:35:03722Ziotlfou HermannANEMIA CSYRO2310-22-86 05:35:0018[facility] HermannANEMIA YTWZA4429-16-25 05:35:60728Bqafaexe HermannANEMIA VWQRJ1113-87-63 05:35:003[facility] HermannANEMIA TFVNL2609-47-30 05:35:005[facility] HermannCHEM QGNDR6158-92-53 05:35:94029Bbnvgznn HermannCHEM SGQUN0118-24-24 05:35:004.3 [facility]annCHEM UEZOI5690-96-36 05:35:0011[facility] HermannCHEM PANEL 2016-06-08 05:35:000.9[facility] HermannCHEM UCRRH9344-28-77 05:35:0012.4[facility] HermannCHEM KCXBR2209-54-09 05:35:89988Hwvrxebt HermannCHEM QFVJE8433-97-15 05:35:008.0[facility] HermannCHEM BZLNI8993-94-93 05:35:0022[facility] HermannCHEM KJPUC6290-33-94 05:35:0075[facility] HermannCHEM OVJQN5985-71-82 05:35:0020 [facility] HermannCHEM QAEJN5602-94-78 05:35:0023[facility] HermannCHEM PANEL 2016-06-08 05:35:003.7[facility]annCHEM QSNZM2656-31-70 05:35:008.5[facility] HermannCHEM ZZLHA0734-42-73 05:35:77833Mutrlasd HermannCHEM VZPZB9681-83-10 05:35:001.0[facility] HermannCHEM KIFNF0853-61-97 05:35:003.4[facility] HermannCHEM CYONC6616-68-13 05:35:000.65[facility] HermannCHEM FNBNX2282-76-62 05:35:0092 [facility]annCHEM GMSVM0168-72-74 05:35:72582Pzjuseuz HermannCHEM PANEL 2016-06-08 05:35:007[facility] HermannCHEM XTSLQ5209-38-77 05:35:0047[facility] UqxrwktPSJFJVMWBQ2197-89-00 05:35:001+ *ABN*(06/08/16 12:35 AM)[facility] BGTTBTMUCJ2963-68-09 05:35:003+ (06/08/16 12:35 AM)[facility]annHEMATOLOG[facility] 2016-06-08 05:35:00Moderate *ABN*(06/08/16 12:35 AM)[facility]annHEMATOLOGY 2016-06-08 05:35:00Moderate *ABN*(06/08/16 12:35 AM)[facility] HermannHEMATOLOGY 2016-06-08 05:35:001-3 per HPF (06/08/16 12:35 AM)[facility]annHEMATOLOGY 2016-06-08 05:35:00Normal (06/08/16 12:35 AM)[facility] VeklwbtQQBIYRXJSE7381-68-00 05:35:00See Note (06/08/16 12:35 AM)[facility] MbdklwwRQGQATDPMA7077-55-41 05:35:003.1[facility]annURINE AND RPXZT2129-18-50 05:35:00Negative *NA*(06/08/16 12:35 AM)[facility] AND PGYOP2142-38-37 05:35:005.0 [facility] KXLQU2893-98-00 05:35:00Negative (06/08/16 12:35 AM) [facility] LEAMW9800-06-81 05:35:00Negative (06/08/16 12:35 AM) [facility] EBCBC9876-11-29 05:35:00Large *ABN*(06/08/16 12:35 AM) [facility] KBOVI5509-04-95 05:35:00Clear (06/08/16 12:35 AM) [facility] BRYQN9846-39-77 05:35:001.016[facility] AND SHJJC3434-15-34 05:35:00Yellow *NA*(06/08/16 12:35 AM)[facility] AND XNIYA1190-47-89 05:35:002[facility]UR[facility] AND VJQYF3015-52-40 05:35:005 [facility]annURINE IBZD8337-19-17 05:35:00Negative (06/08/16 12:35 AM)[facility] GhxyytrXIPPXYFNX4468-78-42 19:27:00Negative (01/11/2013 13:27:00) [facility] LqkqvdrYCVONKSDO7599-41-51 19:15:004.0[facility] DkrshwnLSUJSJEJX7310-78-01 19:15:000.9[facility] WtvigheIHIVPXVWH2889-69-21 19:15:0011[facility] GCNKYWQPO8141-69-22 19:15:0011.0[facility] NghgvcfCUOOGBORO4028-74-96 19:15:0025 [facility] CcdkfhjWMDTQFPVR6355-45-74 19:15:000.8[facility] HermannCHEMISTRY 2013-01-11 19:15:0024[facility] CvsgipdSLNOFHDMX2045-92-43 19:15:0097[facility] PsewyzmKRBMWJACM6108-06-24 19:15:007.5[facility] WokgchiDJJEVSCSC8669-01-31 19:15:82780Mvgcadfl YaajvakWBXUPTUNE4273-04-64 19:15:0027[facility] XFIVISREX1907-61-95 19:15:008.1[facility] OnpkrnzBXFYRHQUE0348-98-60 19:15:003.5 [facility] NcaytkyGZOKZQIBG9850-01-31 19:15:004.0[facility] HermannCHEMISTRY 2013-01-11 19:15:72897Cgsiqonr OitzctdQIBHHVJNW8461-14-90 19:15:0098[facility] GxomhwtMZAWTKQDA1878-90-36 19:15:008[facility] CpvrvapBULHOFSNB1609-31-66 19:15:00 0.7[facility] KixzpfePDQMMOHLE7125-49-76 19:15:69124Lnagjcys HermannHEMATOLOGY 2013-01-11 19:15:00* Test Item Value Reference Range Interpretation Comments PTT (test code = PTT) 25.8 s 22.9-35.8 N [facility] ScruzpbWBQKDIPXIY8108-44-80 19:15:00* Test Item Value Reference Range Interpretation Comments PT (test code = PT) 12.9 s 12.0-14.7 N [facility] TgtqrydDIWRTIMRYW1916-76-94 19:15:000.95[facility]annHEMATOLOGY 2013-01-11 19:15:85103Mecijgqq BxmhtifESVFNAGDDL6226-11-41 19:15:0022.0[facility] FuidkwjIWTFQOEDFW5646-76-07 19:15:0029.6[facility] CxdtahnJLMQKWEMSF8649-66-29 19:15:00* Test Item Value Reference Range Interpretation Comments MCH (test code = MCH) 20.0 pg 27.0-31.0 L [facility] MipmnmtLXDLVODYSQ9106-76-41 19:15:007.0[facility] HermannHEMATOLOGY 2013-01-11 19:15:0067.4[facility] RgsldlmPRNYFPRNCF2565-14-62 19:15:0027.9[facility] JohdmswWKCNVUKYTK5867-46-77 19:15:008.3[facility] ZrstqspNMPQQPVOAF9396-52-40 19:15:004.15[facility] GvkyuxtHFDUJBGDOF7716-70-54 19:15:0010.4[facility] RQARYWVOEE1099-01-09 19:15:00Marked *ABN*(01/11/2013 13:15:00) [facility] RYRZBXWUVA6808-86-36 19:15:00Slight (01/11/2013 13:15:00) [facility] APMDFVSGBT9481-46-36 19:15:001+ *ABN*(01/11/2013 13:15:00) [facility] VJMIZEASFV9037-46-86 19:15:000.1[facility] NttxudkFAUMTSSCOQ1388-93-69 19:15:001.4 [facility] FpydexoXMHTEMFOYE6927-16-70 19:15:000.6[facility] HermannHEMATOLOGY 2013-01-11 19:15:000.0[facility] RlvagcpCFSMWCMPNZ6117-75-05 19:15:001+ *ABN*(01/11/2013 13:15:00) [facility] JbwefbkNDKLUHCFVK2039-65-02 19:15:000.3 [facility] IcnffxwGYARJXFMWN6811-41-07 19:15:000.9[facility] HermannHEMATOLOGY 2013-01-11 19:15:005.6[facility] MuhwxupRHYUCMTLIS7745-90-12 19:15:008.2[facility] WiybmqsGMXMMKNFGR0762-26-47 19:15:00Normal (01/11/2013 13:15:00) [facility] SxqcjwaGHCGVPUXCK7751-14-79 19:15:0079.6[facility] MpeudfdSJZSBCXLGB3849-75-29 19:15:0013.6[facility] YzbzlkbMLIVHILDZ0312-14-44 09:54:07040Tdjorxtj [facility] AKKTFGGJQE4626-21-71 09:54:0023.6[facility] EyqzcjaMNAEFZOOUQ4904-21-64 09:54:00 7.1[facility]annBLOOD BANK FZNSNBW7470-46-36 17:16:00Product available 3(11/23/2012 11:16:00) [facility] QPWRMAH1428-92-65 17:16:00 Negative (11/23/2012 11:16:00) [facility] WlnehbcJQNUWQIVJ8129-88-62 17:00:006 [facility] MvcbfevJNJQPYAWH5168-60-55 17:00:000.006[facility] HermannSTOOL TESTS 2012-11-23 16:50:00Negative (11/23/2012 10:50:00) [facility]annCHEMISTRY 2012-11-23 16:48:00Negative *NA*(11/23/2012 10:48:00) [facility]annCHEMISTRY 2012-11-23 16:48:00Negative *NA*(11/23/2012 10:48:00) [facility]annCHEMISTRY 2012-11-23 16:48:00Negative *NA*(11/23/2012 10:48:00) [facility]annCHE[facility] 2012-11-23 16:48:00Negative *NA*(11/23/2012 10:48:00) [facility]annCHEMISTRY 2012-11-23 16:48:00Positive *ABN*(11/23/2012 10:48:00) [facility] WRPFCLUJU7241-44-48 16:48:00Negative *NA*(11/23/2012 10:48:00) [facility] ELWKUIKNT1106-65-61 16:48:00Negative *NA*(11/23/2012 10:48:00) [facility] BBTMYFILH0159-23-31 16:48:00See Note 6(11/23/2012 10:48:00) [facility] CWXVQMVQK5284-72-69 16:48:00Negative (11/23/2012 10:48:00) [facility] DWRVICTKHW6295-70-48 16:48:00Small *ABN*(11/23/2012 10:48:00) [facility] UZGKNQIQEB6319-40-08 16:48:00Small *ABN*(11/23/2012 10:48:00) [facility] CBXANAXCNI7803-60-63 16:48:00Negative (11/23/2012 10:48:00) [facility] BOHWUYXXPQ0282-13-14 16:48:00Negative (11/23/2012 10:48:00) [facility] ZNYPOFWXYD2787-40-27 16:48:002.0[facility] ExinrivAZECTRLMBP2072-58-78 16:48:00 Yellow *NA*(11/23/2012 10:48:00) [facility] EfmwvyhLDPGMJXAUW2479-98-94 16:48:00 Trace *ABN*(11/23/2012 10:48:00) [facility] KhnlbowSJMQNJWKMF5296-81-30 16:48:00 * Test Item Value Reference Range Interpretation Comments UA pH (test code = UA pH) 6.0 1 5.0-8.0 N [facility] PyilmjlZWIITGIJPR5166-97-15 16:48:00* Test Item Value Reference Range Interpretation Comments UA Spec Grav (test code = UA Spec Grav) 1.020 1 N [facility] FsrkplaTLAQSBAJBB3663-04-60 16:48:00Slight Cloudy (11/23/2012 10:48:00) [facility] LbtydkyZUTBTJHZXU4437-20-06 16:48:00Trace *ABN*(11/23/2012 10:48:00) [facility] YxvjlmdSWHXJGENIA9029-94-79 16:48:00Negative (11/23/2012 10:48:00) [facility] OyxaqtsIWTSHZJISX0974-65-78 16:48:0011[facility] HermannURINALYSIS 2012-11-23 16:48:003[facility] IqfgkpdFPQFVBQFWA5858-62-17 16:48:00Occasional /HPF *NA*(11/23/2012 10:48:00) [facility] GixpiqiFYGZLQQODS6619-81-26 16:48:00Many /LPF *ABN*(11/23/2012 10:48:00) [facility] ZunsoncQWSUSEGDGB8824-70-60 16:48:00 Many /LPF *ABN*(11/23/2012 10:48:00) [facility]annVIRAL - DGDILEXD1890-51-49 16:35:00Negative 2(11/23/2012 10:35:00) [facility]annVIRAL - SEROLOGY 2012-11-23 16:35:00Negative (11/23/2012 10:35:00) [facility] HermannBEDSIDE GLUCOSE GDIILHI6641-03-45 16:00:24997Repfxdou ZyzfnplLJCZHTBVJ9422-12-31 15:51:00<0.5[facility] EpxvlvuCTJBLRQGZ1656-98-42 15:51:00<0.02[facility] Tod JIWJLCDCD8665-84-94 15:51:0050[facility] CpcpcmqGFVKNAHNA0563-42-93 15:51:06281 [facility] XeckxiiKRQNKGLWQ8335-50-68 15:51:003.4[facility] HermannCHEMISTRY 2012-11-23 15:51:01124Gakovtfz DmgrwrgJUITHJTQW7787-35-78 15:51:55436Hqesqpmo QinwatmYSQEYUPWJ9774-02-73 15:51:004.2[facility] ChmwuvaPVEOICLSW0326-26-98 15:51:0012[facility] KzuvdnaPXNLDDMGJ0785-42-14 15:51:009.4[facility] FZRBNCAPB8381-79-26 15:51:0021[facility] KlzxapoEHCITUOPR4373-89-04 15:51:000.5 [facility] QisjbaoSYSNJLMML4115-51-58 15:51:0075[facility] HermannCHEMISTRY 2012-11-23 15:51:0021[facility] VspovjzPQCNDXKFN9720-14-93 15:51:003.5[facility] QkvlncfNIMPJZGET3659-12-17 15:51:000.8[facility] ErgkdetZFXDOCVCW6167-56-94 15:51:008.5[facility] DxbtsmhQOKUUOZIT3320-27-59 15:51:007.7[facility] WDWJCXOIY0788-52-45 15:51:0027[facility] KjphfyfYNNFYANOV8007-85-35 15:51:007 [facility] RwqfwswQNTBWKYBG6738-95-65 15:51:000.6[facility] HermannCHEMISTRY 2012-11-23 15:51:0083[facility] XuxobxtNXGJKTFFH3169-84-39 15:51:00<1.0[facility] BodbcpxHEZGPKREHJ2136-81-95 15:51:001.04[facility] OxzxcefFQNZFQZYMA3944-93-00 15:51:00* Test Item Value Reference Range Interpretation Comments PT (test code = PT) 13.8 s 12.0-14.7 N [facility] GeowxrgRPGSJWSWAC6962-59-84 15:51:48359Fazonbrq HermannHEMATOLOGY 2012-11-23 15:51:007.6[facility] HldkaelLCQCURLQPV3300-43-33 15:51:0060.8[facility] HvjjigqHDDCBXUBXJ5634-83-99 15:51:00* Test Item Value Reference Range Interpretation Comments MCH (test code = MCH) 17.1 pg 27.0-31.0 L [facility] ImxbpwyDUAXMBQBHC7950-00-75 15:51:007.9[facility] HermannHEMATOLOGY 2012-11-23 15:51:003.81[facility] YqzkocwKKJLMCUDVI0735-16-40 15:51:006.5[facility] OzushobCPMXQISMQA3993-59-38 15:51:0028.1[facility] MsorzuyDFDWWJHCKN0478-46-31 15:51:0021.4[facility] XzvnknbNJIJTJCOSI7928-92-35 15:51:0023.2[facility] OJGQGMFASE4257-51-51 15:51:001.5[facility] WyimlwsLWSOHCAUQY5434-12-76 15:51:00 70.8[facility] KezduwwIOENKVWDYM0627-86-00 15:51:0019.5[facility] HermannHEMATOLOGY 2012-11-23 15:51:008.1[facility] EcjxeipASUDHGAAKJ1248-54-50 15:51:001.2[facility] AxbuazgFCENFXOMVL6346-88-98 15:51:000.4[facility] HdtcxljNSAVIFPDVM1637-34-02 15:51:005.6[facility] MzywislMTJMHQTVYJ7138-13-79 15:51:000.6[facility] OCNUMSEUJJ8842-65-82 15:51:000.1[facility] RhixjyjDUKTCPFVKC4991-53-38 15:51:000.0 [facility] EcrlrdqUGAODQQQLN6154-85-26 15:51:002+ *ABN*(11/23/2012 09:51:00) [facility] PwusquaNPQAMSWOTI0585-03-47 15:51:001+ *ABN*(11/23/2012 09:51:00) [facility] IsqrywhIFSSMTHUFH7731-03-99 07:34:00* Test Item Value Reference Range Interpretation Comments UA Spec Grav (test code = UA Spec Grav) 1.010 1 N [facility] SptughrXXGOJIKYOE1442-16-89 07:34:00Cloudy *ABN*(01/21/2012 01:34:00) [facility] LjdzyptWMJSBTPFLG4566-31-67 07:34:00Negative (01/21/2012 01:34:00) [facility] GfecffnHJXQQKHAJF4236-71-23 07:34:00* Test Item Value Reference Range Interpretation Comments UA pH (test code = UA pH) 7.5 1 5.0-8.0 N [facility] LciqzljIATEYITOYH3540-40-38 07:34:00Negative (01/21/2012 01:34:00) [facility] RxesplrWSBNELEUKX5944-51-72 07:34:00Negative *NA*(01/21/2012 01:34:00) [facility] SgkrxcdDRZFBTMDTJ5071-15-64 07:34:000-2 /HPF (01/21/2012 01:34:00) [facility] XnvjbwhDYUQUHVFTG2617-63-59 07:34:000.2[facility] HermannURINALYSIS 2012-01-21 07:34:006-10 /HPF *ABN*(01/21/2012 01:34:00) [facility] OLGWTTUQQS4296-55-18 07:34:00Moderate /HPF (01/21/2012 01:34:00) [facility] GbkzvdbPLYVRKMCXY5490-57-12 07:34:00Many /LPF *ABN*(01/21/2012 01:34:00) [facility] QqvfglvVWUYGZFOOM0925-40-45 07:34:00Large *ABN*(01/21/2012 01:34:00) [facility] BopbkdfRDLKSXHIOV4147-09-27 07:34:00Negative (01/21/2012 01:34:00) [facility] EljhthyPWDNPZZAFU4696-78-81 07:34:00Negative (01/21/2012 01:34:00) [facility] HkjprhoXKCRHJYQSR0421-34-38 07:34:00Negative *NA*(01/21/2012 01:34:00) [facility] McmlpeaSDNVPZIMLM8585-10-54 07:34:00Yellow *NA*(01/21/2012 01:34:00) [facility] WtqnrwwMDGCOLDPE1572-87-76 07:29:00Negative (01/21/2012 01:29:00) [facility] KlrdsmtQPUSSRVRTA5580-13-20 07:29:006.7[facility] HermannHEMATOLOGY 2012-01-21 07:29:0020.0[facility] BwwbgqrUMJOSXTOKE0627-26-12 07:29:84068Unzzhiwe XpapdbuQAYGTHGIEW3362-88-45 07:29:00* Test Item Value Reference Range Interpretation Comments MCH (test code = MCH) 17.4 pg 27.0-31.0 L [facility] RkblsxbZZDRWIDSPL7401-21-27 07:29:0028.5[facility] HermannHEMATOLOGY 2012-01-21 07:29:0061.2[facility] AfvdifzPBAWJRNRIO5996-61-75 07:29:007.2[facility] NjlybfyCFSFCTXPXH9915-01-71 07:29:0025.1[facility] FxfykffPCXDIJSEWE8335-12-98 07:29:0011.8[facility] PnnolaxQMYPNDNEOW0557-22-95 07:29:004.11[facility] ZWULYCDVLC5841-79-92 07:29:0019.5[facility] RvpiljoWSMMJAAJPU3036-08-64 07:29:00 74.9[facility] TyhobucKEQDGPGLYT1681-00-79 07:29:00Slight *ABN*(01/21/2012 01:29:00) [facility] XpsqxauVBJWGADLVG4800-10-64 07:29:00Slight (01/21/2012 01:29:00) [facility] KfewpduOYHWUKXIFN7134-73-41 07:29:002+ *ABN*(01/21/2012 01:29:00) [facility] ShoisddPUKXBXTIRF6778-24-57 07:29:001+ *ABN*(01/21/2012 01:29:00) [facility] XsgmihpJBGWFDHVOY8786-08-99 07:29:00Slight (01/21/2012 01:29:00) [facility] BlxlkxoNKELHWSNRP3764-32-35 07:29:000.1[facility] OXEFZUBPII1720-76-13 07:29:000.1[facility] DemvwdhPUIHLHOIGV6714-95-83 07:29:008.8 [facility] CkngghwZJHFGXGXCF7378-30-87 07:29:000.5[facility] HermannHEMATOLOGY 2012-01-21 07:29:002.3[facility] PjfrdqrTZOAAPSIJG3025-11-71 07:29:004.4[facility] OhtzgqfEGPSMLPFMV5926-82-68 07:29:000.5[facility] FfrilemFRGUNNGRKA8269-81-96 07:29:000.7[facility] IqokkcsSVSQACXTZG7591-87-95 07:29:00Normal (01/21/2012 01:29:00) [facility]
[2020-07-24] MEDS ORDERED: PREDNISONE20 MG PO (01:41)
[2020-07-24] MEDS ORDERED: EPINEPHRIN0.3 MG/0.3 IM (01:51)
[2020-07-24] MEDS ORDERED: METHYLPREDNISOLONE SOD SUCC 125 MG/2ML VIAL ONE (01:54)
[2020-07-24] MEDS ORDERED: FAMOTIDINE 20 MG/2 ML VIAL IV ONE (01:54)
[2020-07-24] MEDS ORDERED: DIPHENHYDRAMINE HCL INJ 50 MG/ML VIAL ONE (01:54)
--- NOTE | 2020-07-24 02:10 | NUR ---
DC'D IVSL WITHOUT DIFF. NO REDNESS/SWELLING/BLEEDING TO SITE. CATH INTACT. FLUSHED WITH 5CC NS POST MEDS PRIOR TO DC OF SL
[2020-07-24 02:23] VITALS: BP 144/86
== END 2020-07-24 02:25 | disposition home or self-care (01) ==
LOC: FSED 01:00
DX: T78.1XXA Other adverse food reactions, not elsewhere classified, initial encounter (principal); L29.9 Pruritus, unspecified; Z98.84 Bariatric surgery status
CPT/HCPCS: 96374; 96375; 96376; 99283; J1200; J2930

== ENCOUNTER 2021-07-22 13:18 | Emergency (ER) | payer BC ==
[~2021-07-22] VITALS: Ht 188 cm; Wt 145.1 kg
[~2021-07-22 13:18] MED LIST: EPINEPHRIN0.3 MG/0.3 IM; FAMOTIDINE20 MG PO; PREDNISONE20 MG PO
[2021-07-22] MEDS ORDERED: SODIUM CHLORIDE 0.9% 1000ML 1,000 ML IV SCH (13:45)
[2021-07-22] MEDS ORDERED: DIPHENHYDRAMINE HCL INJ 50 MG/ML VIAL IV ONE (13:45)
[2021-07-22] MEDS ORDERED: ACETAMINOPHEN 325 MG TAB PO ONE (13:45)
[2021-07-22] MEDS ORDERED: METOCLOPRAMIDE HCL 10 MG/2ML VIAL IV ONE (13:45)
[2021-07-22] MEDS ORDERED: ONDANSETRON ODT4 MG PO (14:12)
[2021-07-22] MEDS ORDERED: IBUPROFEN600 MG PO (14:12)
== END 2021-07-22 15:50 | disposition home or self-care (01) ==
LOC: FSED 13:22
DX: R11.2 Nausea with vomiting, unspecified (principal); R19.7 Diarrhea, unspecified; B34.9 Viral infection, unspecified; R51.9 Headache, unspecified; Z98.84 Bariatric surgery status
CPT/HCPCS: 96374; 96376; 99283; J1200; J2765; J7030

== ENCOUNTER 2021-09-03 15:17 | Emergency (ER) | payer BC ==
[~2021-09-03] VITALS: Ht 188 cm; Wt 154.2 kg
[~2021-09-03 15:17] MED LIST changes: +IBUPROFEN600 MG PO; +ONDANSETRON ODT4 MG PO
[2021-09-03] MEDS ORDERED: NAPROSYN500 MG PO (15:37)
[2021-09-03] MEDS ORDERED: HYDROCODON-ACE1 EA11 PO (15:37)
[2021-09-03] MEDS ORDERED: HYDROCODONE/APAP 5MG-325MG TAB ONE (15:45)
[2021-09-03] MEDS ORDERED: HYDROCODONE/APAP 5MG-325MG TAB PO PRN (15:45)
== END 2021-09-03 15:22 | disposition home or self-care (01) ==
LOC: FSED 15:21
DX: K08.89 Other specified disorders of teeth and supporting structures (principal); Z98.84 Bariatric surgery status
CPT/HCPCS: 99282